=== PATIENT | male | born 1940 | race Caucasian/White ===

== ENCOUNTER → 2016-08-12 | Outpatient (CLI) | payer BC ==
[~2016-08-12] MED LIST: ASPI81TA28 PO; ATOR-26 PO; COEN75CA PO; HYDR25TA4 PO; LOSA1TAB PO; NEBI10TA2 PO
--- NOTE | 2016-08-12 12:28 | DIAGNOSTIC IMAGING REPORT ---
RENAL ULTRASOUND HISTORY: LEFT FLANK PAIN COMPARISON: None. FINDINGS: Right kidney: 13.0 cm. No hydronephrosis. Normal corticomedullary differentiation and cortical thickness. Left kidney: 13.0 cm. No hydronephrosis. Normal corticomedullary differentiation and cortical thickness. There are 2 cysts measuring 6.7 and 2.9 cm. Bladder: No bladder wall thickening. The bilateral ureteral jets were identified. The prostate is enlarged. IMPRESSION: 1. No hydronephrosis. 2. Left renal cysts. 3. Enlarged prostate. Electronically signed by: Rajeev Weathers M.D. 08/12/2016 12:27 PM Dictated Date/Time: 08/12/2016 12:25 PM
== END | disposition home or self-care (01) ==
LOC: C.ULTR 11:47
PROVIDERS: ATTEND Family Medicine
DX: R10.9 Unspecified abdominal pain (principal); N28.1 Cyst of kidney, acquired; N40.0 Benign prostatic hyperplasia without lower urinary tract symptoms

== ENCOUNTER → 2016-08-23 | Outpatient (CLI) | payer BC ==
--- NOTE | 2016-08-23 13:57 | DIAGNOSTIC IMAGING REPORT ---
ABDOMEN AND PELVIS CT WITHOUT CONTRAST CT DOSE: 1035.98 mGycm HISTORY: Left flank pain. TECHNIQUE: Multiaxial CT images of the abdomen and pelvis were performed without contrast. COMPARISON STUDY: Renal ultrasound 08/12/2016. FINDINGS: Bibasal linear densities consistent with subsegmental atelectasis. Moderate to severe right hip osteoarthritis. A 1 cm hypodense lesion within the left hepatic lobe at the periphery. This is incompletely characterize on this noncontrast study but could represent focal fat. The unenhanced spleen, adrenal glands, and pancreas are unremarkable. The gallbladder is contracted. No renal stones. No hydronephrosis. There are 2 hypodense lesions within the left kidney with the largest measuring 5.6 cm. These likely represent cysts. No retroperitoneal lymphadenopathy. Suboptimal evaluation for bowel pathology due to the lack of intravenous and oral contrast. However, there is no definite bowel wall thickening or obstruction. Small calcifications at the posterior wall of the bladder. These could represent calcifications within the wall of the bladder versus tiny bladder stones. There is a 14 x 7 x 5 cm intramuscular fat-containing lesion within the left iliopsoas muscle. This contains a few punctate calcifications. 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 No associated bony destruction. IMPRESSION: 1. No renal stones or hydronephrosis. 2. Punctate densities within posterior bladder consistent with calcification. These could be within the bladder wall or represent tiny bladder stones. 3. A 14 x 7 x 5 cm intramuscular fat-containing lesion within the left iliopsoas muscle. This favors a lipoma. Electronically signed by: Rajeev Weathers M.D. 08/23/2016 1:56 PM Dictated Date/Time: 08/23/2016 1:48 PM
== END | disposition home or self-care (01) ==
LOC: C.CTS 13:30
PROVIDERS: ATTEND Family Medicine
DX: R10.9 Unspecified abdominal pain (principal); N32.9 Bladder disorder, unspecified; M62.89 Other specified disorders of muscle

== ENCOUNTER → 2016-12-13 | Outpatient (CLI) | payer BC | END | disposition home or self-care (01) | LOC: C.LAB1850 12:11 | PROVIDERS: ATTEND Urology | DX: N40.1 Benign prostatic hyperplasia with lower urinary tract symptoms (principal) ==

== ENCOUNTER → 2017-06-09 | Outpatient (CLI) | payer BC | END | disposition home or self-care (01) | LOC: C.LABSPEC 14:52 | PROVIDERS: ATTEND Urology | DX: N40.1 Benign prostatic hyperplasia with lower urinary tract symptoms (principal); F52.8 Other sexual dysfunction not due to a substance or known physiological condition; R35.1 Nocturia ==

== ENCOUNTER 2018-10-17 16:25 | Observation (INO) ==
[2018-10-17] MEDS ORDERED: SODIUM CHLORIDE 0.9% 500 ML IV ONE (16:58)
[2018-10-17 17:02] LABS: Basophils # (auto) 0.02 K/uL (0-0.2); Basophils % (auto) 0.2 %; Eosinophils # (auto) 0.13 K/uL (0-0.5); Eosinophils % (auto) 1.2 %; Hematocrit (blood only) 44.8 % (42-52); Hemoglobin 15.4 g/dL (14.0-18.0); Immature Granulocytes # (auto) 0.02 K/uL (0.00-0.02); Immature Granulocytes % (auto) 0.2 %; Lymphocytes # (auto) 2.58 K/uL (1.2-3.4); Lymphocytes % (auto) 23.4 %; Mean Corpuscular Hgb Conc 34.4 g/dL (32-36); Mean Corpuscular Volume 90.9 fL (80-100); Monocytes # (auto) 1.04 K/uL (0.11-0.59); Monocytes % (auto) 9.4 %; Neutrophils # (auto) 7.22 K/uL (1.4-6.5); Neutrophils % (auto) 65.6 %; Platelet Count 223 K/uL (130-400); RDW Coefficient of Variation 13.9 % (11.5-14.5); RDW Standard Deviation 45.9 fL (36.4-46.3); Red Blood Count 4.93 M/uL (4.7-6.1); White Blood Count 11.01 K/uL (4.8-10.8)
[2018-10-17 17:16] LABS: Prothrombin Time 10.7 Seconds (9.0-12.0)
--- NOTE | 2018-10-17 17:22 | Emergency Department Note ---
Entered by Evy Willis acting as a scribe for History of Present Illness General Chief complaint: Chest Pain Stated complaint: CHEST PAIN, DIZZY, LIGHT HEADED, SOB- CARDIAC HX Time Seen by Provider: 10/17/18 16:38 Source: patient and family () History of Present Illness Onset (ago): hour(s) (19) Location: chest Pain Consistency: + intermittent Maximum Pain Intensity: 1 Quality: + other (slight) Associated symptoms: + other (+dizziness; +lightheadedness; +feels close to passing out; +slight palpitations; +erratic heart rate; -indigestion; - diarrhea); no cough and no nausea/vomiting The patient is a 77 year old male who presents to the Emergency Room with complaints of intermittent, slight chest pain that began last night at approximately 2200. The patient reports that each episode of chest pain is accompanied with dizziness, lightheadedness, and the patient reports he felt he was about to pass out. The patient also reports of feeling slight palpitations and and an irregular rhythmic, fast heart rate. The patient states that he has felt episodes of lightheadedness for the past month. The patient notes each episode lasts for about an hour. The patient denies a cough, indigestion, diarrhea, or nausea and vomiting. The patient notes he has been eating and drinking good. The patient states he saw his PCP-Dr. Ridley regarding symptoms, and the patient states his PCP was concerned for A Fib. The patient also reports he exercises on a stationary bike and does resistant training 4 days a week. The of the patient feels the patient gets dehydrated. The patient notes he feels good right now. He also notes that he does not know what brings each episode on. The patient reports that he had a stent placed in June 2009, and that he used to be on Plavix for it but is currently not taking it. The patient also notes he used to be on blood pressure medication, but he notes he ceased taking it 3-4 weeks due to his blood pressure lowering. Home Medications Home Medications Medication Instructions Recorded Confirmed Type atorvastatin 80 mg PO QAM #0 tab 12/31/15 10/17/18 History hydrochlorothiazide 25 mg PO QAM #0 tab 12/31/15 10/17/18 History finasteride 5 mg PO QAM 11/01/17 10/17/18 History tamsulosin 0.4 mg PO QAM 11/01/17 10/17/18 History aspirin [Ecotrin Low Strength] 81 mg PO QAM 10/17/18 10/17/18 History coenzyme Q10 100 mg PO QAM 10/17/18 10/17/18 History losartan 100 mg PO QAM 10/17/18 10/17/18 History Allergies Allergy/AdvReac Type Severity Reaction Status Date / Time No Known Allergies Allergy Verified 10/17/18 17:20 Past Med/Surg History Medical History Hypertension Benign prostatic hyperplasia Hyperlipidemia Atrial fibrillation, new onset (Acute) Elevated troponin (Acute) BPH (benign prostatic hyperplasia) Bradycardia ASYMPTOMATIC ON BETA SABINE CAD (coronary artery disease) 2009 s/p MAREK to dRCA HLD (hyperlipidemia) HTN (hypertension) Hx of myocardial infarction 2009 s/p MAREK to dRCA Osteoarthritis Sleep apnea CPAP (PATIENT HAS NOT RECEIVED CPAP DEVICE YET) Surgical History Hx of cardiac cath 06/20/2009- [place] WITH MAREK STENT TO RCA Hx of cataract surgery RIGHT AND LEFT Hx of local excision of skin lesion Right upper arm Dr. James 10-16-18 Family History Other No significant family history Social History Preferred Language: Nepali Communication Ability: Effective Visual Impairment: No Limitations [employer] Experience Strategy Required: No Beliefs That Will Affect Care: None Current Living Situation: Spouse Feels Safe at Home: Yes Safety Concerns: Feels Safe At This Time Smoking Status: Former smoker Cigarettes Per Day: INTERMITTENT ; Do You Dip or Chew Tobacco: No ; Smoking End Date: quit at [age] y/o ; Second Hand Exposure: No ; Hx Alcohol Use: Yes Alcohol type: wine Hx Substance Use: No Review of Systems See HPI for pertinent positives & negatives. and A total of 10 systems reviewed and were otherwise negative Physical Exam Vital Signs Vital Signs - 24 hr 10/17/18 16:30 10/17/18 16:56 10/17/18 17:00 Temperature 36.8 C Temperature Source Oral Sepsis Recent Fever Within 48 Hours No Sepsis New/Unexplained Change in Mental Status No Sepsis Action Taken by Nursing No Action Required Pulse Rate 93 H 116 H 101 H Pulse Rate [Finger] Pulse Rate from SpO2 Sensor Respiratory Rate 22 30 H 14 Blood Pressure 109/75 Blood Pressure [Right Arm] Blood Pressure Mean 86 Blood Pressure Mean [Right Arm] Pulse Oximetry 97 Oxygen Delivery Method Room Air Room Air Room Air 10/17/18 17:03 10/17/18 17:10 10/17/18 17:20 Temperature Temperature Source Sepsis Recent Fever Within 48 Hours Sepsis New/Unexplained Change in Mental Status Sepsis Action Taken by Nursing Pulse Rate 104 H 119 H 99 H Pulse Rate [Finger] Pulse Rate from SpO2 Sensor 80 Respiratory Rate 30 H 33 H 18 Blood Pressure 129/93 Blood Pressure [Right Arm] Blood Pressure Mean 105 Blood Pressure Mean [Right Arm] Pulse Oximetry 95 Oxygen Delivery Method Room Air Room Air Room Air 10/17/18 17:30 10/17/18 17:40 10/17/18 17:50 Temperature Temperature Source Sepsis Recent Fever Within 48 Hours Sepsis New/Unexplained Change in Mental Status Sepsis Action Taken by Nursing Pulse Rate 93 H 99 H 90 Pulse Rate [Finger] Pulse Rate from SpO2 Sensor Respiratory Rate 18 17 18 Blood Pressure 124/97 Blood Pressure [Right Arm] Blood Pressure Mean 106 Blood Pressure Mean [Right Arm] Pulse Oximetry Oxygen Delivery Method Room Air Room Air Room Air 10/17/18 18:00 10/17/18 18:10 10/17/18 18:20 Temperature Temperature Source Sepsis Recent Fever Within 48 Hours Sepsis New/Unexplained Change in Mental Status Sepsis Action Taken by Nursing Pulse Rate 133 H 98 H 93 H Pulse Rate [Finger] Pulse Rate from SpO2 Sensor Respiratory Rate 23 19 10 L Blood Pressure 117/68 Blood Pressure [Right Arm] Blood Pressure Mean 84 Blood Pressure Mean [Right Arm] Pulse Oximetry Oxygen Delivery Method Room Air Room Air Room Air 10/17/18 19:11 10/17/18 19:20 10/17/18 19:30 Temperature Temperature Source Sepsis Recent Fever Within 48 Hours Sepsis New/Unexplained Change in Mental Status Sepsis Action Taken by Nursing Pulse Rate 100 H 97 H 103 H Pulse Rate [Finger] Pulse Rate from SpO2 Sensor Respiratory Rate 23 22 18 Blood Pressure Blood Pressure [Right Arm] Blood Pressure Mean Blood Pressure Mean [Right Arm] Pulse Oximetry Oxygen Delivery Method Room Air Room Air Room Air 10/17/18 19:39 10/17/18 19:40 10/17/18 19:50 Temperature Temperature Source Sepsis Recent Fever Within 48 Hours Sepsis New/Unexplained Change in Mental Status Sepsis Action Taken by Nursing Pulse Rate 94 H 101 H Pulse Rate [Finger] Pulse Rate from SpO2 Sensor 84 Respiratory Rate 19 19 Blood Pressure Blood Pressure [Right Arm] Blood Pressure Mean Blood Pressure Mean [Right Arm] Pulse Oximetry 95 Oxygen Delivery Method Room Air Room Air Room Air 10/17/18 19:54 10/17/18 19:55 10/17/18 20:00 Temperature Temperature Source Sepsis Recent Fever Within 48 Hours Sepsis New/Unexplained Change in Mental Status Sepsis Action Taken by Nursing Pulse Rate 96 H 103 H Pulse Rate [Finger] 105 H Pulse Rate from SpO2 Sensor 71 72 Respiratory Rate 23 24 16 Blood Pressure 125/89 127/74 Blood Pressure [Right Arm] 125/89 Blood Pressure Mean 101 91 Blood Pressure Mean [Right Arm] 101 Pulse Oximetry 94 96 96 Oxygen Delivery Method Room Air Room Air Room Air 10/17/18 20:10 10/17/18 20:20 10/17/18 20:30 Temperature Temperature Source Sepsis Recent Fever Within 48 Hours Sepsis New/Unexplained Change in Mental Status Sepsis Action Taken by Nursing Pulse Rate 112 H 85 105 H Pulse Rate [Finger] Pulse Rate from SpO2 Sensor 95 H 74 74 Respiratory Rate 14 17 25 H Blood Pressure 128/84 Blood Pressure [Right Arm] Blood Pressure Mean 98 Blood Pressure Mean [Right Arm] Pulse Oximetry 97 97 94 Oxygen Delivery Method Room Air Room Air Room Air GENERAL: Awake, fatigued-appearing, in no distress HENT: Normocephalic, atraumatic. Oropharynx with dry mucous membranes and otherwise unremarkable. EYES: Normal conjunctiva. Sclera non-icteric. EOMI. No nystamgus. PEARRL. NECK: Supple. No nuchal rigidity. FROM. No JVD. RESPIRATORY: CTAB. CARDIAC: Tachycardic rate, irregular rhythm. Extremities warm and well perfused. Pulses equal. ABDOMEN: Soft, non-distended. No tenderness to palpation. No rebound or guarding. No masses. RECTAL: Deferred. MUSCULOSKELETAL: Chest examination reveals no tenderness. The back is symmetrical on inspection without obvious abnormality. There is no CVA tenderness to palpation. No joint edema. LOWER EXTREMITIES: Calves are equal size bilaterally and non-tender. No edema. No discoloration. NEURO: Normal sensorium. No sensory or motor deficits noted. SKIN: No rash or jaundice noted. Course 1645: Past medical records reviewed. The patient was evaluated in room C5. A c omplete history and physical exam was performed. 1823: I reevaluated and discussed the patient's case with the patient. 1834: I discussed the case with Dr. Oh-Hospitalist [facility]. Dr. Oh will further evaluate the patient. Administered Medications Heparin Sodium/Dextrose (Heparin Sodium/Dextrose) 25,000 units in 500 mls @ 29 mls/hr IV .[id number] AIME; Protocol Stop: 11/16/18 18:59 Last Admin: 10/18/18 02:10 Dose: 1,450 units/hr, 29 mls/hr Documented by: [id number] Cosigned by: [id number] Admin: 10/17/18 19:52 Dose: Not Given Documented by: [id number] Metoprolol Tartrate (Lopressor) 12.5 mg PO BID [facility] Stop: 11/16/18 22:16 Last Admin: 10/17/18 23:40 Dose: 12.5 mg Documented by: [id number] Discontinued Medications Heparin Sodium/Dextrose () 1 ea IV ONE ONE; Protocol Stop: 10/17/18 18:56 Last Admin: 10/17/18 19:52 Dose: 25,000 ea Documented by: [id number] Sodium Chloride (Nss) 500 mls @ 999 mls/hr IV .Q31M ONE Stop: 10/17/18 17:28 Last Infusion: 10/17/18 17:41 Dose: 0 mls/hr Documented by: [id number] Admin: 10/17/18 17:03 Dose: 999 mls/hr Documented by: [id number] Medical Decision Making Differential Diagnosis Differential diagnosis: Etiologies such as premature contractions, electrolyte abnormality, cardiac dysrhythmia, thyroid dysfunction, pulmonary embolism, infection, gastrointest inal, as well as others were entertained. Medical Records Attestation: I reviewed the patient's medical records. Home Medications Current Medication List: was personally reviewed by me Laboratory Data Attestation: I reviewed the patient's lab results. Result diagrams: 10/17/18 22:25 10/17/18 16:47 Lab Results 10/17/18 10/17/18 10/17/18 Range/Units 16:47 16:47 16:47 WBC 11.01 H (4.8-10.8) K/uL RBC 4.93 (4.7-6.1) M/uL Hgb 15.4 (14.0-18.0) g/dL Hct 44.8 (42-52) % MCV 90.9 (80-100) fL MCH 31.2 (25-34) pg MCHC 34.4 (32-36) g/dL RDW Std Deviation 45.9 (36.4-46.3) fL RDW Coeff of Negin 13.9 (11.5-14.5) % Plt Count 223 (130-400) K/uL MPV 10.0 (7.4-10.4) fL Immature Gran % (Auto) 0.2 % Neut % (Auto) 65.6 % Lymph % (Auto) 23.4 % Gooding % (Auto) 9.4 % Eos % (Auto) 1.2 % Baso % (Auto) 0.2 % Immature Gran # (Auto) 0.02 (0.00-0.02) K/uL Neut # (Auto) 7.22 H (1.4-6.5) K/uL Lymph # (Auto) 2.58 (1.2-3.4) K/uL Gooding # (Auto) 1.04 H (0.11-0.59) K/uL Eos # (Auto) 0.13 (0-0.5) K/uL Baso # (Auto) 0.02 (0-0.2) K/uL PT 10.7 (9.0-12.0) Seconds INR 1.0 (0.9-1.1) APTT (21.0-31.0) Seconds PTT Ratio Sodium 138 (136-145) mmol/L Potassium 3.7 (3.5-5.1) mmol/L Chloride 106 (98-107) mmol/L Carbon Dioxide 24 (21-32) mmol/L Anion Gap 8.0 (3-11) BUN 25 H (7-18) mg/dl Creatinine 1.18 (0.6-1.4) mg/dl Est Cr Clr Drug Dosing 60.0 ml/min Est GFR ( Amer) 69.1 Est GFR (Non-Af Amer) 59.6 BUN/Creatinine Ratio 20.9 H (10-20) Glucose 91 (70-99) mg/dl Calcium 8.6 (8.5-10.1) mg/dl Phosphorus (2.5-4.9) mg/dl Magnesium (1.8-2.4) mg/dl Total Bilirubin 0.9 (0.2-1) mg/dl AST 18 (15-37) U/L ALT 31 (12-78) U/L Alkaline Phosphatase 99 (45-117) U/L Troponin I 0.055 H* (0-0.045) ng/ml Total Protein 6.8 (6.4-8.2) gm/dl Albumin 3.3 L (3.4-5.0) gm/dl Globulin 3.5 (2.5-4.0) gm/dl Albumin/Globulin Ratio 0.9 (0.9-2) Lipase 108 (73-393) U/L 10/17/18 10/17/18 Range/Units 16:47 16:47 WBC (4.8-10.8) K/uL RBC (4.7-6.1) M/uL Hgb (14.0-18.0) g/dL Hct (42-52) % MCV (80-100) fL MCH (25-34) pg MCHC (32-36) g/dL RDW Std Deviation (36.4-46.3) fL RDW Coeff of Negin (11.5-14.5) % Plt Count (130-400) K/uL MPV (7.4-10.4) fL Immature Gran % (Auto) % Neut % (Auto) % Lymph % (Auto) % Gooding % (Auto) % Eos % (Auto) % Baso % (Auto) % Immature Gran # (Auto) (0.00-0.02) K/uL Neut # (Auto) (1.4-6.5) K/uL Lymph # (Auto) (1.2-3.4) K/uL Gooding # (Auto) (0.11-0.59) K/uL Eos # (Auto) (0-0.5) K/uL Baso # (Auto) (0-0.2) K/uL PT (9.0-12.0) Seconds INR (0.9-1.1) APTT 26.4 (21.0-31.0) Seconds PTT Ratio 1.0 Sodium (136-145) mmol/L Potassium (3.5-5.1) mmol/L Chloride (98-107) mmol/L Carbon Dioxide (21-32) mmol/L Anion Gap (3-11) BUN (7-18) mg/dl Creatinine (0.6-1.4) mg/dl Est Cr Clr Drug Dosing ml/min Est GFR ( Amer) Est GFR (Non-Af Amer) BUN/Creatinine Ratio (10-20) Glucose (70-99) mg/dl Calcium (8.5-10.1) mg/dl Phosphorus 2.9 (2.5-4.9) mg/dl Magnesium 1.9 (1.8-2.4) mg/dl Total Bilirubin (0.2-1) mg/dl AST (15-37) U/L ALT (12-78) U/L Alkaline Phosphatase (45-117) U/L Troponin I (0-0.045) ng/ml Total Protein (6.4-8.2) gm/dl Albumin (3.4-5.0) gm/dl Globulin (2.5-4.0) gm/dl Albumin/Globulin Ratio (0.9-2) Lipase (73-393) U/L Imaging Data Radiologist's Impression: Radiology results as stated below per my review and the radiologist's interpretation: XR chest 1V portable HISTORY: Atypical Chest Pain COMPARISON: Chest 06/20/2009. FINDINGS: No pneumothorax. No pleural effusions. The lungs are clear. The heart is normal in size. IMPRESSION: No acute process. Electronically signed by: Rajeev Weathers M.D. 10/17/2018 5:48 PM ECG Data Attestation: I personally reviewed and interpreted this ECG as follows: Indication: chest pain Rhythm: atrial fibrillation (with RVR of 105) Findings: + other (normal axis ); no acute ischemic change Blood Pressure Blood Pressure Findings: Normal blood pressure MDM Narrative The patient is a pleasant 77-year-old gentleman with a past medical history of CAD post PCI in 2009, hypertension, hyperlipidemia who presents emergency department with intermittent dyspnea, lightheadedness and palpitations found to have new onset A. fib at PCPs office per hpi. On arrival the patient is in no acute distress, afebrile stable vital signs. EKG demonstrates A. fib with no overt acute ischemia. Chest x-ray negative for acute process. WBC 11, nonspecific. H/H and platelets within normal limits. Chemistry without acidosis. Electrolytes and LFTs unremarkable. Troponin slightly elevated at 0.05 which certainly could be related to patient's A. fib with intermittent RVR. However, given the patient has reported some symptoms of exertional shortness of breath dizziness and chest pain reasonable to admit the patient for further cardiac evaluation. Heart score 6, moderate risk. Patient does have CHADSVASC of 3, so anticoagulation is indicated. Will initiate with heparin for now. Case was discussed with Dr. Oh, [facility] hospitalist, who will evaluate the patient for admission. Impression & Plan Atrial fibrillation, new onset, Elevated troponin Critical Care Time Critical Care Time: Yes Total Critical Care Time: 35 I have personally spent greater than 35 minutes of critical care time in the direct management of this patient. This includes bedside care, interpretation of diagnostic studies, and testing, discussion with consultants, patient, and family members, and other required patient management activities. This 35 minutes is in excess of all separately billable procedures. Discharge Plan Visit Data *Final* Discharge Date/Time: 10/17/18 21:46 Chief Complaint: Chest Pain Stated Complaint: CHEST PAIN, DIZZY, LIGHT HEADED, SOB- CARDIAC HX ED Provider: Valerio Kearns Discharge Problem: Atrial fibrillation, new onset, Elevated troponin Patient Disposition: Admitted As Inpatient Discharge Instructions Interventions: ED Discharge Assessment Last Done: 10/17/18 21:46 The scribe's documentation has been prepared under my direction and personally reviewed by me in its entirety. I confirm that the note above accurately reflects all work, treatment, procedures, and medical decision making performed by me.
[2018-10-17 17:24] LABS: Magnesium 1.9 mg/dl (1.8-2.4); Phosphorus 2.9 mg/dl (2.5-4.9)
[2018-10-17 17:27] LABS: Albumin Level 3.3 gm/dl (3.4-5.0); BUN Creatinine Ratio 20.9 (10-20); Calcium 8.6 mg/dl (8.5-10.1); Est GFR (African American) 69.1; Est GFR (Non-African American) 59.6; Potassium 3.7 mmol/L (3.5-5.1)
[2018-10-17 17:40] LABS: Albumin Globulin Ratio 0.9 (0.9-2); Bilirubin,Total 0.9 mg/dl (0.2-1); Globulin 3.5 gm/dl (2.5-4.0); Total Protein 6.8 gm/dl (6.4-8.2); Troponin I 0.055 ng/ml (0-0.045)
--- NOTE | 2018-10-17 17:49 | XRay Report ---
XR chest 1V portable HISTORY: Atypical Chest Pain COMPARISON: Chest 06/20/2009. FINDINGS: No pneumothorax. No pleural effusions. The lungs are clear. The heart is normal in size. IMPRESSION: No acute process. Electronically signed by: Rajeev Weathers M.D. 10/17/2018 5:48 PM
[2018-10-17] MEDS ORDERED: Heparin IV Standard *NO* Bolus IV ONE (18:55)
[2018-10-17 19:19] LABS: Partial Thromboplastin Time 26.4 Seconds (21.0-31.0)
[2018-10-17] MEDS: HEPARIN SODIUM/DEXTROSE 25,000 UNITS/500 ML BAG IV SCH (19:52)
--- NOTE | 2018-10-17 20:18 | History & Physical Report ---
Date of Service October 17, 2018 Assessment & Plan (1) Atrial fibrillation, new onset: Atrial fibs with RVR. - Admit to medicine on telemetry. - Vital signs every 4 hours. - Strict in and out. - BNP pending. - Started on heparin drip for A. fib's since patient is at risk of CVA. - Echocardiogram in in a.m. - Started metoprolol tartrate low-dose 12.5 mg twice daily and needs to be titrate up carefully due to low blood pressure. - Hold metoprolol if blood pressure is in the lower side. - Hold losartan and hydrochlorothiazide if blood pressure less than 120/80. - Please consider consulting cardiology for A. fib's and after echocardiogram results. - Continue aspirin 81 mg daily p.o. - Heart healthy diet. - Full code -DVT prophylaxis-patient started on heparin drip for A. fib's. Present on Admission?: Yes (2) Elevated troponin: First troponin is elevated to 0.055. Most likely due to paroxysmal A. fib's and higher heart rate. -No ST segment elevation or depression on the EKG. -Trend troponins x3 followed by EKG. -Started heparin drip. -Consult cardiology in a.m. of after echocardiogram is resulted. -Given aspirin already. -Patient reports no chest pain. Present on Admission?: Yes (3) Hypertension: Patient blood pressure lately tends to be below 120/80. Hold losartan and hydrochlorothiazide if blood pressure below 120/80. Continue aspirin 81 mg p.o. daily. Present on Admission?: Yes (4) Hyperlipidemia: Fasting lipid panel in a.m. Continue atorvastatin 80 mg p.o. every morning. Present on Admission?: Yes (5) Benign prostatic hyperplasia: Stable, continue home dose of tamsulosin 0.5 mg p.o. every morning and finasteride 5 mg p.o. every morning. Present on Admission?: Yes History of Present Illness Chief Complaint: Lightheadedness and chest pain Primary Care Provider: Marah Helm MD Patient is a 77 years old male with past medical history of right hip replacement approximately a year ago, coronary artery disease status post stent to RCA placement by Dr. John in 2009, hypertension, benign prostatic hypertrophy, hyperlipidemia, sleep apnea, osteoarthritis, presents to the emergency room complaining of feeling lightheaded, dizzy feeling that he is going to pass out and having a slight chest pain. Patient states that it started last night about 10 PM and that he had 3 glasses of wine which is his usual and that he all of a sudden started to feel dizzy lightheaded and he checked his pulse on pulse oximetry which noted that it was above 100. Patient states that the more occasions happened in the past months and that each episode lasted approximately 1 hour. Patient denies fever chills chest pain shortness of breath headache abdominal pain hemoptysis hematuria dysuria diarrhea nausea or vomiting patient does not have any complain about eating or drinking habits. Patient saw this morning Dr. Ridley his PCP regarding his lightheadedness and dizziness and he recommended him to go to the emergency room. Patient said that he was before on Plavix for the stent that was placed in his heart but then lately he was taken off of it because he has been more than 5 years on Plavix. Patient reports that he did not take regularly his blood pressure medicine lately because his blood pressure was at the lower side. Chemistry is reviewed: Sodium 139,potassium 3.7, chloride 106 BUN of 25, creatinine 1.18, GFR of 60, troponin elevated of 0.055. EKG shows atrial fibrillation with RVR compared to sinus bradycardia on November 01, 2017. Rate of A. fib's are 105 bpm and ventricular rate of 59 bpm QT interval 352. Chest x-ray show no acute process. The case was discussed with patient and decision was made to admit him to medicine on telemetry and on observation. Allergies Allergy/AdvReac Type Severity Reaction Status Date / Time No Known Allergies Allergy Verified 10/17/18 17:20 Home Medications Home Medications Medication Instructions Recorded Confirmed Type atorvastatin 80 mg PO QAM #0 tab 12/31/15 10/17/18 History hydrochlorothiazide 25 mg PO QAM #0 tab 12/31/15 10/17/18 History finasteride 5 mg PO QAM 11/01/17 10/17/18 History tamsulosin 0.4 mg PO QAM 11/01/17 10/17/18 History aspirin [Ecotrin Low Strength] 81 mg PO QAM 10/17/18 10/17/18 History coenzyme Q10 100 mg PO QAM 10/17/18 10/17/18 History losartan 100 mg PO QAM 10/17/18 10/17/18 History Past Med/Surg History Medical History BPH (benign prostatic hyperplasia) Bradycardia ASYMPTOMATIC ON BETA SABINE CAD (coronary artery disease) 2009 s/p MAREK to dRCA HLD (hyperlipidemia) HTN (hypertension) Hx of myocardial infarction 2009 s/p MAREK to dRCA Osteoarthritis Sleep apnea CPAP (PATIENT HAS NOT RECEIVED CPAP DEVICE YET) Surgical History Hx of cardiac cath 06/20/2009- [place] WITH MAREK STENT TO RCA Hx of cataract surgery RIGHT AND LEFT Hx of local excision of skin lesion Right upper arm Dr. 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 Required: No Beliefs That Will Affect Care: None Current Living Situation: Spouse Feels Safe at Home: Yes Safety Concerns: Feels Safe At This Time Smoking Status: Former smoker Cigarettes Per Day: INTERMITTENT ; Do You Dip or Chew Tobacco: No ; Smoking End Date: quit at [age] y/o ; Second Hand Exposure: No ; Hx Alcohol Use: Yes Alcohol type: wine Hx Substance Use: No Review of Systems Review of Systems: All systems reviewed & are unremarkable except as noted in HPI & below Cardiovascular: + palpitations and + lightheadedness Physical Exam Constitutional: WD/WN, vitals as above well developed and + obese Eyes: PERRL, conjunctivae normal, anicteric sclerae ENMT: external ear and nose normal, oropharynx normal Neck: trachea midline, no thyromegaly Respiratory: normal respiratory effort, lungs clear to auscultation Cardiovascular: RRR, no murmur, no edema Chest (Breasts): normal inspection/palpation of breasts Gastrointestinal (Abdomen): normal bowel sounds, soft, nontender, no hepatosplenomegaly Musculoskeletal: no cyanosis or clubbing, extremities motor strength 5/5 Skin: no rashes, warm and dry Neurologic: patellar DTR's 2+ bilat, sensation intact Psychiatric: A+Ox3, euthymic affect Genitourinary: no testicular masses, no penis abnormality Lymphatic: no cervical or axillary lymphadenopathy Results & Data Vital Signs (Past 12 Hours) Vital Signs Temp Pulse Pulse Resp BP BP Pulse Ox 10/17/18 19:54 105 H 23 125/89 94 10/17/18 18:20 93 H 10 L 10/17/18 18:10 98 H 19 10/17/18 18:00 133 H 23 117/68 10/17/18 17:50 90 18 10/17/18 17:40 99 H 17 10/17/18 17:30 93 H 18 124/97 10/17/18 17:20 99 H 18 10/17/18 17:10 119 H 33 H 10/17/18 17:03 104 H 30 H 129/93 95 10/17/18 17:00 101 H 14 10/17/18 16:56 116 H 30 H 10/17/18 16:30 36.8 C 93 H 22 109/75 97 Code Status & VTE Plan Code Status Full code VTE Prophylaxis Plan VTE Prophylaxis will be ordered: Yes PG Care Time/CCT Total # of Minutes Spent Total Time Spent with Patient: Total time spent is greater than 50% in coordination of care (as documented) at patient's floor/unit and/or counseling patient:
[2018-10-17] MEDS ORDERED: ONDANSETRON INJ 2 MG/ML 2 ML VIAL IV PRN (22:17)
[2018-10-17] MEDS ORDERED: POLYETHYLENE (MIRALAX) 17 GM PACK PO PRN (22:17)
[2018-10-17] MEDS ORDERED: MAGNESIUM HYDROXIDE SUSP 30 ML UDC PO PRN (22:17)
[2018-10-17] MEDS ORDERED: ACETAMINOPHEN 325 MG TAB PO PRN (22:17)
[2018-10-17] MEDS ORDERED: ALUMINUM/MAGNESIUM SUSP 30 ML UDC PO PRN (22:17)
[2018-10-17] MEDS ORDERED: ZOLPIDEM TARTRATE 5 MG TAB PO PRN (22:17)
[2018-10-17 22:35] LABS: Basophils # (auto) 0.03 K/uL (0-0.2); Basophils % (auto) 0.2 %; Eosinophils % (auto) 1.5 %; Hematocrit (blood only) 47.7 % (42-52); Hemoglobin 16.5 g/dL (14.0-18.0); Immature Granulocytes # (auto) 0.04 K/uL (0.00-0.02); Immature Granulocytes % (auto) 0.3 %; Lymphocytes # (auto) 3.26 K/uL (1.2-3.4); Mean Corpuscular Hgb Conc 34.6 g/dL (32-36); Mean Corpuscular Volume 93.5 fL (80-100); Mean Platelet Volume 10.2 fL (7.4-10.4); Monocytes # (auto) 1.32 K/uL (0.11-0.59); Monocytes % (auto) 9.7 %; Neutrophils # (auto) 8.72 K/uL (1.4-6.5); Neutrophils % (auto) 64.3 %; Platelet Count 220 K/uL (130-400); RDW Coefficient of Variation 13.8 % (11.5-14.5); RDW Standard Deviation 47.3 fL (36.4-46.3); White Blood Count 13.57 K/uL (4.8-10.8)
[2018-10-17] MEDS: METOPROLOL TARTRATE 25 MG TAB PO SCH (23:40)
[2018-10-18] MEDS: HEPARIN SODIUM/DEXTROSE 25,000 UNITS/500 ML BAG IV SCH ×2 (02:10→13:31)
[2018-10-18 02:31] LABS: Partial Thromboplastin Ratio 2.2
[2018-10-18 02:49] LABS: Partial Thromboplastin Time 58.6 Seconds (21.0-31.0)
[2018-10-18 04:12] LABS: Basophils # (auto) 0.03 K/uL (0-0.2); Basophils % (auto) 0.3 %; Eosinophils # (auto) 0.14 K/uL (0-0.5); Eosinophils % (auto) 1.4 %; Hematocrit (blood only) 43.6 % (42-52); Immature Granulocytes # (auto) 0.03 K/uL (0.00-0.02); Immature Granulocytes % (auto) 0.3 %; Lymphocytes # (auto) 2.67 K/uL (1.2-3.4); Lymphocytes % (auto) 26.7 %; Mean Corpuscular Hgb Conc 34.4 g/dL (32-36); Mean Corpuscular Volume 91.2 fL (80-100); Mean Platelet Volume 10.3 fL (7.4-10.4); Monocytes # (auto) 0.94 K/uL (0.11-0.59); Monocytes % (auto) 9.4 %; Neutrophils # (auto) 6.19 K/uL (1.4-6.5); Neutrophils % (auto) 61.9 %; Platelet Count 207 K/uL (130-400); RDW Coefficient of Variation 13.8 % (11.5-14.5); RDW Standard Deviation 46.5 fL (36.4-46.3); Red Blood Count 4.78 M/uL (4.7-6.1)
[2018-10-18 04:33] LABS: Partial Thromboplastin Ratio 2.4
[2018-10-18 04:38] LABS: Partial Thromboplastin Time 66.1 Seconds (21.0-31.0)
[2018-10-18 04:44] LABS: Albumin Globulin Ratio 0.9 (0.9-2); BUN Creatinine Ratio 18.6 (10-20); Bilirubin,Total 0.7 mg/dl (0.2-1); Calcium 8.2 mg/dl (8.5-10.1); Creatinine Clr Calc Pharmacy 62.2 ml/min; Est GFR (African American) 72.8; Est GFR (Non-African American) 62.8; Globulin 3.2 gm/dl (2.5-4.0); Potassium 4.3 mmol/L (3.5-5.1); Total Protein 6.2 gm/dl (6.4-8.2); Troponin I 0.061 ng/ml (0-0.045)
[2018-10-18] MEDS: TAMSULOSIN HCL 0.4 MG CAP PO SCH (08:31)
[2018-10-18] MEDS: FINASTERIDE 5 MG TAB PO SCH (08:32)
[2018-10-18] MEDS: ASPIRIN 81 MG ECTAB PO SCH (08:33)
[2018-10-18] MEDS: ATORVASTATIN 40 MG TAB PO SCH (08:33)
[2018-10-18] MEDS ORDERED: LOSARTAN POTASSIUM 50 MG TAB PO SCH (09:00)
[2018-10-18] MEDS ORDERED: NON-FORMULARY MEDICATION (Coenzyme Q10 100 MG) PO SCH (09:00)
[2018-10-18] MEDS ORDERED: hydroCHLOROthiazide 25 MG TAB PO SCH (09:00)
[2018-10-18] MEDS: METOPROLOL TARTRATE 25 MG TAB PO SCH ×2 (10:56→19:59)
--- NOTE | 2018-10-18 12:04 | Cardiology Consultation ---
Date of Consultation October 18, 2018 Assessment & Plan (1) Atrial fibrillation, new onset: The onset of his atrial fibrillation is unclear. Perhaps this started 2 days ago but certainly could been longer. He did have an outpatient visit recently at which point his rhythm was normal. There is also unclear association with his symptoms in the arrhythmia. White did describe symptoms of dizziness and lightheadedness possibly associated with atrial fibrillation, he is currently in atrial fibrillation without symptoms. He will require more aggressive rate control. His medications were held this morning due to some concern over hypotension. I think we can discontinue his hydrochlorothiazide and reduce his losartan and attempt to allow administration of beta-blockade. He also derive benefit from the beta-jana in the setting of his prior myocardial infarction. He may have element of with slow heart rates at baseline. We will need to monitor his response to metoprolol. It is possible that he will convert to sinus rhythm on his own will need to monitor his rate and symptoms at that time as well. It is possible that he has tachy- sylvia syndrome and will require pacing. The symptoms of dizziness could be related to conversion pauses. However, at this point we have no documentation of such. We did discuss anticoagulation. His chads Vasc score is elevated and I did recommend systemic anticoagulation. I think Xarelto will be a convenient option for him. I think we will stop his heparin later today and administer dose of Xarelto. He has remote history of coronary disease, but likely will only require Xarelto and not aspirin for prophylaxis. (2) Elevated troponin: Very minimal elevation if any elevation at all in his biomarkers. He is known to have some element of coronary disease but I do not believe this is resources representative of an acute coronary syndrome. I think we will continue him on his standard secondary prevention to include atorvastatin, anticoagulation and reinstitution of beta-blockade. 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 Echocardiogram suggest preserved LV systolic function without regional wall motion abnormality. Stress echocardiogram performed 1 year ago has similar features. I think he will benefit from being on a beta-jana. I think we can reduce his dose of ARB. No current symptoms suggestive of angina. History of Present Illness Reason for Consultation: Atrial fibrillation Requesting Physician: Tino Attending Physician: Ga Jiménez MD History of Present Illness Patient is a 77-year-old gentleman with a history of coronary disease having suffered an inferoposterior myocardial infarction in 2009. The patient has no history of arrhythmia. Recently, he has been experiencing symptoms of lightheadedness and dizziness. These appear to be fairly random in nature. He has had several over the past few weeks. These did not result in syncope. Often with an episode he will simply rest or discontinue his activity with rapid resolution of his symptoms. He is not aware of any palpitations during these episodes. These episodes do not appear to be associated with changes in activity. Approximately 2 days ago the patient did notice some irregularity in his pulse. He also noted some higher heart rates. He had an appointment with his primary care physician for evaluation and was directed to the emergency room at [facility]. He was experiencing some symptoms of dizziness at the time of admission but these appear to have resolved currently. He did not endorse symptoms of chest discomfort or limiting dyspnea. He cannot recall symptoms of palpitations prior to 2 days ago. In general, he is a very active individual was accustomed to regular exercise. He does notice that with exercise his heart rate rarely reaches 100 beats per minute. However, he does not have any exertional chest pain or limiting dyspnea. He has affected a significant weight loss recently and has also noticed some improvement in his blood pressures. This prompted discontinuation of his beta-jana several weeks ago. Currently, he is feeling well. He denies symptoms of palpitations. He is not feeling dizzy. He has no symptoms of chest pain or shortness of breath. Allergies Allergy/AdvReac Type Severity Reaction Status Date / Time No Known Allergies Allergy Verified 10/17/18 17:20 Home Medications Home Medications Medication Instructions Recorded Confirmed Type atorvastatin 80 mg PO QAM #0 tab 12/31/15 10/17/18 History hydrochlorothiazide 25 mg PO QAM #0 tab 12/31/15 10/17/18 History finasteride 5 mg PO QAM 11/01/17 10/17/18 History tamsulosin 0.4 mg PO QAM 11/01/17 10/17/18 History aspirin [Ecotrin Low Strength] 81 mg PO QAM 10/17/18 10/17/18 History coenzyme Q10 100 mg PO QAM 10/17/18 10/17/18 History losartan 100 mg PO QAM 10/17/18 10/17/18 History Patient History Medical History Hypertension Benign prostatic hyperplasia Hyperlipidemia Atrial fibrillation, new onset (Acute) Elevated troponin (Acute) BPH (benign prostatic hyperplasia) Bradycardia ASYMPTOMATIC ON BETA JANA CAD (coronary artery disease) 2009 s/p MAREK to dRCA HLD (hyperlipidemia) HTN (hypertension) Hx of myocardial infarction 2010 s/p MAREK to dRCA Osteoarthritis Sleep apnea CPAP (PATIENT HAS NOT RECEIVED CPAP DEVICE YET) Surgical History Hx of cardiac cath 06/20/2009- [place] WITH MAREK STENT TO RCA Hx of cataract surgery RIGHT AND LEFT Hx of local excision of skin lesion Right upper arm Dr. James 10-16-18 Family History Other No significant family history Social History Preferred Language: Latvian Communication Ability: Effective Visual Impairment: No Limitations Supervisor Smoke Control Required: No Beliefs That Will Affect Care: None Current Living Situation: Spouse Feels Safe at Home: Yes Safety Concerns: Feels Safe At This Time Smoking Status: Former smoker Cigarettes Per Day: INTERMITTENT ; Do You Dip or Chew Tobacco: No ; Smoking End Date: quit at [age] y/o ; Second Hand Exposure: No ; Hx Alcohol Use: Yes Alcohol type: wine Hx Substance Use: No Review of Systems Review of Systems: All systems reviewed & are unremarkable except as noted in HPI & below No recent lower extremity edema. Patient did attend a republican recently where he drank more alcohol than usual. He has been compliant with the CPAP therapy at nighttime. Physical Exam Physical Exam: The patient is alert and oriented. Mood and affect appeared normal. He answered all questions appropriately. HEENT: Pupils are equal and reactive to light and accommodation. Extraocular movements are intact. The sclerae are anicteric. Neuro: Cranial nerves intact Neck: Patient's neck is supple. He has palpable carotid pulses bilaterally without bruits on auscultation. There is no evidence of jugular venous distention. The thyroid is not enlarged. Lungs: Clear to auscultation bilaterally. He has good air movement without use of accessory muscles. No rales wheezes or rhonchi. Cardiac: Heart demonstrates an irregular rate and rhythm. Normal S1 and S2. No murmurs on examination. Pulses: The patient has palpable radial pulses bilaterally that are equal in intensity Extremities: There was no evidence of hypoperfusion. There is no cyanosis or clubbing. There is no edema. Skin: I did not appreciate any rashes on examination today. Results & Data Vital Signs (Past 12 Hours) Vital Signs Temp Pulse Pulse Resp BP BP Pulse Ox 10/18/18 11:24 36.7 C 75 18 94/69 L 94 10/18/18 09:11 94/62 L 98/64 L 10/18/18 09:09 85/59 L 106/74 10/18/18 08:00 85 10/18/18 07:02 36.6 C 80 18 97/70 L 95 10/18/18 03:19 36.5 C 72 16 105/73 95 10/18/18 00:13 36.8 C 85 16 112/75 95 Laboratory Results Abnormal Lab Results 10/17/18 10/17/18 10/17/18 16:47 16:47 16:47 WBC 11.01 H RBC 4.93 Hgb 15.4 Hct 44.8 MCV 90.9 MCH 31.2 MCHC 34.4 RDW Std Deviation 45.9 RDW Coeff of Negin 13.9 Plt Count 223 MPV 10.0 Immature Gran % (Auto) 0.2 Neut % (Auto) 65.6 Lymph % (Auto) 23.4 [place] % (Auto) 9.4 Eos % (Auto) 1.2 Baso % (Auto) 0.2 Immature Gran # (Auto) 0.02 Neut # (Auto) 7.22 H Lymph # (Auto) 2.58 [place] # (Auto) 1.04 H Eos # (Auto) 0.13 Baso # (Auto) 0.02 PT 10.7 INR 1.0 APTT PTT Ratio Sodium 138 Potassium 3.7 Chloride 106 Carbon Dioxide 24 Anion Gap 8.0 BUN 25 H Creatinine 1.18 Est Cr Clr Drug Dosing 60.0 Est GFR ( Amer) 69.1 Est GFR (Non-Af Amer) 59.6 BUN/Creatinine Ratio 20.9 H Glucose 91 Calcium 8.6 Phosphorus Magnesium Total Bilirubin 0.9 AST 18 ALT 31 Alkaline Phosphatase 99 Troponin I 0.055 H* NT-Pro-B Natriuret Pep Total Protein 6.8 Albumin 3.3 L Globulin 3.5 Albumin/Globulin Ratio 0.9 Triglycerides Cholesterol LDL Cholesterol, Calc VLDL Cholesterol, Calc HDL Cholesterol Cholesterol/HDL Ratio Lipase 108 10/17/18 10/17/18 10/17/18 16:47 16:47 22:25 WBC 13.57 H RBC 5.10 Hgb 16.5 Hct 47.7 MCV 93.5 MCH 32.4 MCHC 34.6 RDW Std Deviation 47.3 H RDW Coeff of Negin 13.8 Plt Count 220 MPV 10.2 Immature Gran % (Auto) 0.3 Neut % (Auto) 64.3 Lymph % (Auto) 24.0 [place] % (Auto) 9.7 Eos % (Auto) 1.5 Baso % (Auto) 0.2 Immature Gran # (Auto) 0.04 H Neut # (Auto) 8.72 H Lymph # (Auto) 3.26 [place] # (Auto) 1.32 H Eos # (Auto) 0.20 Baso # (Auto) 0.03 PT INR APTT 26.4 PTT Ratio 1.0 Sodium Potassium Chloride Carbon Dioxide Anion Gap BUN Creatinine Est Cr Clr Drug Dosing Est GFR ( Amer) Est GFR (Non-Af Amer) BUN/Creatinine Ratio Glucose Calcium Phosphorus 2.9 Magnesium 1.9 Total Bilirubin AST ALT Alkaline Phosphatase Troponin I NT-Pro-B Natriuret Pep Total Protein Albumin Globulin Albumin/Globulin Ratio Triglycerides Cholesterol LDL Cholesterol, Calc VLDL Cholesterol, Calc HDL Cholesterol Cholesterol/HDL Ratio Lipase 10/17/18 10/18/18 10/18/18 22:25 02:00 04:03 WBC RBC Hgb Hct MCV MCH MCHC RDW Std Deviation RDW Coeff of Negin Plt Count MPV Immature Gran % (Auto) Neut % (Auto) Lymph % (Auto) [place] % (Auto) Eos % (Auto) Baso % (Auto) Immature Gran # (Auto) Neut # (Auto) Lymph # (Auto) [place] # (Auto) Eos # (Auto) Baso # (Auto) PT INR APTT 58.6 H* PTT Ratio 2.2 Sodium 141 Potassium 4.3 D Chloride 108 H Carbon Dioxide 29 Anion Gap 4.0 BUN 21 H Creatinine 1.13 Est Cr Clr Drug Dosing 62.2 Est GFR ( Amer) 72.8 Est GFR (Non-Af Amer) 62.8 BUN/Creatinine Ratio 18.6 Glucose 103 H Calcium 8.2 L Phosphorus Magnesium Total Bilirubin 0.7 AST 16 ALT 28 Alkaline Phosphatase 89 Troponin I 0.063 H* 0.061 H* NT-Pro-B Natriuret Pep 2877 H Total Protein 6.2 L Albumin 3.0 L Globulin 3.2 Albumin/Globulin Ratio 0.9 Triglycerides 73 Cholesterol 97 LDL Cholesterol, Calc 30 VLDL Cholesterol, Calc 15 HDL Cholesterol 52 Cholesterol/HDL Ratio 2 Lipase 10/18/18 10/18/18 04:03 04:03 WBC 10.00 RBC 4.78 Hgb 15.0 Hct 43.6 MCV 91.2 MCH 31.4 MCHC 34.4 RDW Std Deviation 46.5 H RDW Coeff of Negin 13.8 Plt Count 207 MPV 10.3 Immature Gran % (Auto) 0.3 Neut % (Auto) 61.9 Lymph % (Auto) 26.7 [place] % (Auto) 9.4 Eos % (Auto) 1.4 Baso % (Auto) 0.3 Immature Gran # (Auto) 0.03 H Neut # (Auto) 6.19 Lymph # (Auto) 2.67 [place] # (Auto) 0.94 H Eos # (Auto) 0.14 Baso # (Auto) 0.03 PT INR APTT 66.1 H* PTT Ratio 2.4 Sodium Potassium Chloride Carbon Dioxide Anion Gap BUN Creatinine Est Cr Clr Drug Dosing Est GFR ( Amer) Est GFR (Non-Af Amer) BUN/Creatinine Ratio Glucose Calcium Phosphorus Magnesium Total Bilirubin AST ALT Alkaline Phosphatase Troponin I NT-Pro-B Natriuret Pep Total Protein Albumin Globulin Albumin/Globulin Ratio Triglycerides Cholesterol LDL Cholesterol, Calc VLDL Cholesterol, Calc HDL Cholesterol Cholesterol/HDL Ratio Lipase Diagnostic Findings Echocardiogram obtained today demonstrated normal LV systolic function with No valvular heart disease. No regional wall motion abnormalities. Dobutamine echocardiogram performed approximately 1 year ago did not demonstrate any evidence of inducible ischemia. Normal LV function and wall motion. ECG Additional Comments: Atrial fibrillation with controlled ventricular rate. Nonspecific ST and T-wave changes PG Care Time/CCT Total # of Minutes Spent Total Time Spent with Patient: Total time spent is greater than 50% in coordination of care (as documented) at patient's floor/unit and/or counseling patient:
--- NOTE | 2018-10-18 13:04 | Hospitalist Progress Note ---
Date of Service October 18, 2018 Assessment & Plan (1) Atrial fibrillation, new onset: Atrial fibs with RVR. - cardiology consult - heparin gtt changed to Xeralto, dc'd hctz, decreased losartan, continue low dose metoprolol - Echo without wma, EF 55% - Continue aspirin 81 mg daily p.o. - Heart healthy diet. (2) Elevated troponin: -No ST segment elevation or depression on the EKG. -Troponin peaked at 0.063 and trending down -Started heparin drip - now transitioned to Xeralto (3) Hypertension: As antihypertensives as above Continue aspirin 81 mg p.o. daily. (4) Hyperlipidemia: Fasting lipids wnl Continue atorvastatin 80 mg p.o. every morning. (5) Benign prostatic hyperplasia: Stable, continue home dose of tamsulosin 0.5 mg p.o. every morning and finasteride 5 mg p.o. every morning. (6) DVT prophylaxis: Xeralto Subjective Mr. Jiménez did have an episode of palpitations and lightheadedness this morning but otherwise is feeling well. His heart rates have ranged mostly 100-120 on the monitor in A.fib. He denies any chest pain Review of Systems Review of Systems: All systems reviewed & are unremarkable except as noted in HPI & below Physical Exam Physical Exam: General: no distress Eyes: normal inspection, PERLL Respiratory: chest non tender, clear to auscultation, normal breath sounds, no respiratory distress, no accessory muscle use Cardiac: irregular rate and rhythm, no rub or gallop, no murmur, no edema, no jvd GI/: active bowel sounds, no abd pain or tenderness, soft, non distended Extremities: normal range of motion, normal strength, non tender Neuro/Psych: alert and oriented x 3, normal mood and affect Skin: normal color, dry Results & Data Vital Signs (Past 12 Hours) Vital Signs Temp Pulse Pulse Resp BP BP Pulse Ox 10/18/18 11:24 36.7 C 75 18 94/69 L 94 10/18/18 09:11 94/62 L 98/64 L 10/18/18 09:09 85/59 L 106/74 10/18/18 08:00 85 10/18/18 07:02 36.6 C 80 18 97/70 L 95 10/18/18 03:19 36.5 C 72 16 105/73 95 PG Care Time/CCT Total # of Minutes Spent Total Time Spent with Patient: Total time spent is greater than 50% in coordination of care (as documented) at patient's floor/unit and/or counseling patient:
[2018-10-18] MEDS ORDERED: METOPROLOL TARTRATE 25 MG TAB PO ONE (15:45)
[2018-10-18] MEDS: RIVAROXABAN 20 MG TAB PO SCH (18:53)
[2018-10-19 06:33] LABS: Basophils # (auto) 0.03 K/uL (0-0.2); Basophils % (auto) 0.2 %; Eosinophils % (auto) 0.8 %; Hematocrit (blood only) 46.7 % (42-52); Hemoglobin 16.2 g/dL (14.0-18.0); Immature Granulocytes # (auto) 0.03 K/uL (0.00-0.02); Immature Granulocytes % (auto) 0.2 %; Lymphocytes # (auto) 2.26 K/uL (1.2-3.4); Lymphocytes % (auto) 18.1 %; Mean Corpuscular Hgb Conc 34.7 g/dL (32-36); Mean Platelet Volume 10.2 fL (7.4-10.4); Monocytes # (auto) 1.24 K/uL (0.11-0.59); Monocytes % (auto) 9.9 %; Neutrophils # (auto) 8.83 K/uL (1.4-6.5); Neutrophils % (auto) 70.8 %; Platelet Count 211 K/uL (130-400); RDW Coefficient of Variation 13.8 % (11.5-14.5); RDW Standard Deviation 46.3 fL (36.4-46.3); Red Blood Count 5.13 M/uL (4.7-6.1); White Blood Count 12.49 K/uL (4.8-10.8)
[2018-10-19 07:08] LABS: Albumin Level 3.3 gm/dl (3.4-5.0); BUN Creatinine Ratio 18.6 (10-20); Calcium 8.2 mg/dl (8.5-10.1); Creatinine Clr Calc Pharmacy 66.6 ml/min; Est GFR (African American) 79.5; Est GFR (Non-African American) 68.6; Potassium 3.6 mmol/L (3.5-5.1)
[2018-10-19 07:11] LABS: Albumin Globulin Ratio 0.9 (0.9-2); Bilirubin,Total 1.1 mg/dl (0.2-1); Globulin 3.6 gm/dl (2.5-4.0); Total Protein 6.9 gm/dl (6.4-8.2)
[2018-10-19] MEDS: METOPROLOL TARTRATE 25 MG TAB PO SCH ×4 (08:44→23:42)
[2018-10-19] MEDS: ASPIRIN 81 MG ECTAB PO SCH (08:45)
[2018-10-19] MEDS: FINASTERIDE 5 MG TAB PO SCH (08:45)
[2018-10-19] MEDS: TAMSULOSIN HCL 0.4 MG CAP PO SCH (08:45)
[2018-10-19] MEDS: ATORVASTATIN 40 MG TAB PO SCH (08:45)
[2018-10-19] MEDS ORDERED: LOSARTAN POTASSIUM 50 MG TAB PO SCH (09:00)
--- NOTE | 2018-10-19 11:02 | Hospitalist Progress Note ---
Date of Service October 19, 2018 Assessment & Plan (1) Atrial fibrillation, new onset: Atrial fibs with RVR. - cardiology consult - heparin gtt changed to Xeralto, dc'd hctz, will dc losartan as well to try and enable 50 mg daily of metoprolol as heart rates continue to run in the 120s - Echo without wma, EF 55% - Continue aspirin 81 mg daily p.o. - Heart healthy diet. (2) Elevated troponin: -No ST segment elevation or depression on the EKG. -Troponin peaked at 0.063 and trending down -Started heparin drip - now transitioned to Xeralto (3) Hypertension: antihypertensives as above Continue aspirin 81 mg p.o. daily. (4) Hyperlipidemia: Fasting lipids wnl Continue atorvastatin 80 mg p.o. every morning. (5) Benign prostatic hyperplasia: Stable, continue home dose of tamsulosin 0.5 mg p.o. every morning and finasteride 5 mg p.o. every morning. (6) DVT prophylaxis: Xeralto (7) Leukocytosis: Unclear source - patient does complain of some irritation when breathing in in his throat/upper chest but no cough, no fever. He feels some tenderness over cervical lymph nodes but I appreciate no lymphadenopathy on exam. Will check a U/A Repeat CBC am Subjective Mr. Jiménez has no complaints except for some irritation in his throat when breathing in at times and some sore lymph nodes. Review of Systems Review of Systems: All systems reviewed & are unremarkable except as noted in HPI & below Physical Exam Physical Exam: General: no distress Eyes: normal inspection, PERLL Respiratory: chest non tender, clear to auscultation, normal breath sounds, no respiratory distress, no accessory muscle use Cardiac: irregular rate and rhythm, no rub or gallop, no murmur, no edema, no jvd GI/: active bowel sounds, no abd pain or tenderness, soft, non distended Extremities: normal range of motion, normal strength, non tender Neuro/Psych: alert and oriented x 3, normal mood and affect Skin: normal color, dry Results & Data Vital Signs (Past 12 Hours) Vital Signs Temp Pulse Resp BP BP Pulse Ox 10/19/18 07:04 36.7 C 77 18 105/75 96 10/19/18 03:53 36.6 C 90 18 129/85 97 10/18/18 23:53 37.0 C 94 H 16 97/61 L 96 PG Care Time/CCT Total # of Minutes Spent Total Time Spent with Patient: Total time spent is greater than 50% in coordination of care (as documented) at patient's floor/unit and/or counseling patient:
[2018-10-19 14:23] LABS: Appearance Urine Clear (Clear); Bacteria Urine Automated Negative (Negative); Bilirubin Urine Negative (Negative); Blood Urine Trace (Negative); Color Urine Yellow; Glucose Urine UA Negative (Negative); Ketones Urine Negative (Negative); Leukocyte Esterase Urine Negative (Negative); Nitrite Urine Negative (Negative); Protein Urine Negative (Negative); RBC Urine Automated 0-4 /hpf (0-4); Specific Gravity Urine 1.019 (1.000-1.030); Urobilinogen Urine Negative (Negative)
--- NOTE | 2018-10-19 16:17 | Cardiology Progress Note ---
Date of Service October 19, 2018 Assessment & Plan (1) Atrial fibrillation, new onset: He is doing better this afternoon. This morning had elevated ventricular rates but did not receive a lot of beta-jana yesterday due to concerns over hypotension. He feels well. His heart rate is much better controlled. His blood pressure looks good. I think we will have good success with a regimen of metoprolol. The exact dose to be determined. His other antihypertensives have been discontinued. I think that is reasonable given his good blood pressures at this point in time. He had arise more benefit from use of a beta-jana in the setting of his coronary disease and prior infarct versus his other medications. Will continue his anticoagulation indefinitely. (2) Elevated troponin: No symptoms of chest discomfort. e. 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 Echocardiogram suggest preserved LV systolic function without regional wall motion abnormality. Stress echocardiogram performed 1 year ago has similar features. I think he will benefit from being on a beta-jana. ARB and hydrochlorothiazide discontinued. Subjective This afternoon the patient was feeling well. He did notice some palpitations early this morning but none currently. He denies significant breathing trouble. No chest pain. He was ambulatory around the lou without significant dizziness or other symptoms. Review of Systems Review of Systems: Per HPI Physical Exam Physical Exam: The patient is alert and oriented. Mood and affect appeared normal. He answered all questions appropriately. HEENT: Pupils are equal and reactive to light and accommodation. Extraocular movements are intact. The sclerae are anicteric. Neuro: Cranial nerves intact Lungs: Clear to auscultation bilaterally. He has good air movement without use of accessory muscles. No rales wheezes or rhonchi. Cardiac: Heart demonstrates an irregular rate and rhythm. Normal S1 and S2. No murmurs on examination. Pulses: The patient has palpable radial pulses bilaterally that are equal in intensity Extremities: There was no evidence of hypoperfusion. There is no cyanosis or clubbing. There is no edema. Skin: I did not appreciate any rashes on examination today. Results & Data Vital Signs (Past 12 Hours) Vital Signs Temp Pulse Resp BP BP Pulse Ox 10/19/18 15:54 36.9 C 73 19 120/77 98 10/19/18 12:29 36.6 C 86 20 107/72 96 10/19/18 07:04 36.7 C 77 18 105/75 96 Laboratory Results Abnormal Lab Results 10/19/18 10/19/18 10/19/18 06:14 06:14 13:44 WBC 12.49 H RBC 5.13 Hgb 16.2 Hct 46.7 MCV 91.0 MCH 31.6 MCHC 34.7 RDW Std Deviation 46.3 RDW Coeff of Negin 13.8 Plt Count 211 MPV 10.2 Immature Gran % (Auto) 0.2 Neut % (Auto) 70.8 Lymph % (Auto) 18.1 [place] % (Auto) 9.9 Eos % (Auto) 0.8 Baso % (Auto) 0.2 Immature Gran # (Auto) 0.03 H Neut # (Auto) 8.83 H Lymph # (Auto) 2.26 [place] # (Auto) 1.24 H Eos # (Auto) 0.10 Baso # (Auto) 0.03 Sodium 139 Potassium 3.6 D Chloride 107 Carbon Dioxide 25 Anion Gap 7.0 BUN 20 H Creatinine 1.05 Est Cr Clr Drug Dosing 66.6 Est GFR ( Amer) 79.5 Est GFR (Non-Af Amer) 68.6 BUN/Creatinine Ratio 18.6 Glucose 100 H Calcium 8.2 L Total Bilirubin 1.1 H D AST 16 ALT 31 Alkaline Phosphatase 95 Total Protein 6.9 Albumin 3.3 L Globulin 3.6 Albumin/Globulin Ratio 0.9 Urine Color Yellow Urine Appearance Clear Urine pH 5.0 Ur Specific [place] 1.019 Urine Protein Negative Urine Glucose (UA) Negative Urine Ketones Negative Urine Blood Trace H Urine Nitrite Negative Urine Bilirubin Negative Urine Urobilinogen Negative Ur Leukocyte Esterase Negative Urine WBC (Auto) 1-5 Urine RBC (Auto) 0-4 U Hyaline Cast (Auto) 1-5 U Epithel Cells (Auto) 5-10 H Urine Bacteria (Auto) Negative PG Care Time/CCT Total # of Minutes Spent Total Time Spent with Patient: Total time spent is greater than 50% in coordination of care (as documented) at patient's floor/unit and/or counseling patient:
[2018-10-19] MEDS: RIVAROXABAN 20 MG TAB PO SCH (18:14)
[2018-10-19] MEDS ORDERED: NURSING DECISION MEDICATION ONE (19:28)
[2018-10-19] MEDS ORDERED: COUGH DROP (SUGAR FREE) LOZ 24 LOZ/1 BOX BUCCAL PRN (19:37)
[2018-10-19] MEDS ORDERED: COUGH DROP (SUGAR FREE) LOZ 24 LOZ/1 BOX BUCCAL ONE (19:37)
[2018-10-20] MEDS: METOPROLOL TARTRATE 25 MG TAB PO SCH ×2 (05:45→08:16)
[2018-10-20 06:31] LABS: Basophils # (auto) 0.03 K/uL (0-0.2); Basophils % (auto) 0.2 %; Eosinophils # (auto) 0.14 K/uL (0-0.5); Eosinophils % (auto) 1.1 %; Hematocrit (blood only) 47.9 % (42-52); Hemoglobin 16.4 g/dL (14.0-18.0); Immature Granulocytes # (auto) 0.03 K/uL (0.00-0.02); Immature Granulocytes % (auto) 0.2 %; Lymphocytes # (auto) 2.39 K/uL (1.2-3.4); Lymphocytes % (auto) 18.1 %; Mean Corpuscular Hgb Conc 34.2 g/dL (32-36); Mean Corpuscular Volume 91.9 fL (80-100); Mean Platelet Volume 10.6 fL (7.4-10.4); Monocytes # (auto) 1.38 K/uL (0.11-0.59); Monocytes % (auto) 10.4 %; Neutrophils # (auto) 9.27 K/uL (1.4-6.5); Platelet Count 220 K/uL (130-400); RDW Coefficient of Variation 13.9 % (11.5-14.5); RDW Standard Deviation 47.1 fL (36.4-46.3); Red Blood Count 5.21 M/uL (4.7-6.1); White Blood Count 13.24 K/uL (4.8-10.8)
[2018-10-20 06:58] LABS: Albumin Level 3.3 gm/dl (3.4-5.0); BUN Creatinine Ratio 17.7 (10-20); Calcium 8.8 mg/dl (8.5-10.1); Creatinine Clr Calc Pharmacy 68.6 ml/min; Est GFR (African American) 82.4; Est GFR (Non-African American) 71.1; Potassium 3.7 mmol/L (3.5-5.1)
[2018-10-20 07:01] LABS: Albumin Globulin Ratio 0.9 (0.9-2); Globulin 3.8 gm/dl (2.5-4.0); Total Protein 7.1 gm/dl (6.4-8.2)
[2018-10-20] MEDS: FINASTERIDE 5 MG TAB PO SCH (08:16)
[2018-10-20] MEDS: ATORVASTATIN 40 MG TAB PO SCH (08:17)
[2018-10-20] MEDS: ASPIRIN 81 MG ECTAB PO SCH (08:17)
[2018-10-20] MEDS: TAMSULOSIN HCL 0.4 MG CAP PO SCH (08:17)
--- NOTE | 2018-10-20 08:52 | Cardiology Progress Note ---
Date of Service October 20, 2018 Assessment & Plan (1) Atrial fibrillation, new onset: His rate control is much improved on the metoprolol. Whether this is the ideal dose for him as yet to be determined. However, I think his rates are well enough controlled that he could be safely discharged. Is not appear to have symptoms with the atrial fibrillation currently. He may require some dose adjustments in the outpatient setting. There is also the option of cardioversion after he has been anticoagulated for few weeks. I think sending him home on metoprolol tartrate 25 mg twice daily would be reasonable starting point. He will continue on his Xarelto indefinitely. I think he can dis continue his aspirin therapy. With respect to his anti hypertensives, his blood pressure appears quite good on metoprolol alone. I think he can be discharged without his losartan or hydrochlorothiazide at this point. (2) Elevated troponin: No symptoms of chest discomfort. (3) Coronary artery disease: He has remote history of myocardial infarction. More recent evaluations have not demonstrated evidence of infarct IgE no wall motion abnormalities on echocardiography. While the may be some incremental benefit to being on aspirin in addition to Xarelto, he likely has a high risk of bleeding on the combination and I think he could safely be discharged on monotherapy with Xarelto. Subjective This morning patient feels well. He was ambulatory yesterday around the lou. He did not report symptoms of dizziness, dyspnea, chest pain or significant palpitation. Review of Systems Review of Systems: Per HPI Physical Exam Physical Exam: The patient is alert and oriented. Mood and affect appeared normal. He answered all questions appropriately. HEENT: Pupils are equal and reactive to light and accommodation. Extraocular movements are intact. The sclerae are anicteric. Neuro: Cranial nerves intact Lungs: Clear to auscultation bilaterally. He has good air movement without use of accessory muscles. No rales wheezes or rhonchi. Cardiac: Heart demonstrates an irregular rate and rhythm. Normal S1 and S2. No murmurs on examination. Pulses: The patient has palpable radial pulses bilaterally that are equal in intensity Extremities: There was no evidence of hypoperfusion. There is no cyanosis or clubbing. There is no edema. Skin: I did not appreciate any rashes on examination today. Results & Data Vital Signs (Past 12 Hours) Vital Signs Temp Pulse Resp BP Pulse Ox 10/20/18 07:48 37 C 79 20 105/74 96 10/20/18 05:45 113/74 10/20/18 04:02 36.5 C 91 H 19 127/82 97 10/20/18 00:03 36.4 C L 81 19 121/67 97 Laboratory Results Abnormal Lab Results 10/19/18 10/20/18 10/20/18 13:44 05:52 05:52 WBC 13.24 H RBC 5.21 Hgb 16.4 Hct 47.9 MCV 91.9 MCH 31.5 MCHC 34.2 RDW Std Deviation 47.1 H RDW Coeff of Negin 13.9 Plt Count 220 MPV 10.6 H Immature Gran % (Auto) 0.2 Neut % (Auto) 70.0 Lymph % (Auto) 18.1 [place] % (Auto) 10.4 Eos % (Auto) 1.1 Baso % (Auto) 0.2 Immature Gran # (Auto) 0.03 H Neut # (Auto) 9.27 H Lymph # (Auto) 2.39 [place] # (Auto) 1.38 H Eos # (Auto) 0.14 Baso # (Auto) 0.03 Sodium 142 Potassium 3.7 Chloride 107 Carbon Dioxide 29 Anion Gap 6.0 BUN 18 Creatinine 1.02 Est Cr Clr Drug Dosing 68.6 Est GFR ( Amer) 82.4 Est GFR (Non-Af Amer) 71.1 BUN/Creatinine Ratio 17.7 Glucose 95 Calcium 8.8 Total Bilirubin 1.0 AST 18 ALT 33 Alkaline Phosphatase 104 Total Protein 7.1 Albumin 3.3 L Globulin 3.8 Albumin/Globulin Ratio 0.9 Urine Color Yellow Urine Appearance Clear Urine pH 5.0 Ur Specific [place] 1.019 Urine Protein Negative Urine Glucose (UA) Negative Urine Ketones Negative Urine Blood Trace H Urine Nitrite Negative Urine Bilirubin Negative Urine Urobilinogen Negative Ur Leukocyte Esterase Negative Urine WBC (Auto) 1-5 Urine RBC (Auto) 0-4 U Hyaline Cast (Auto) 1-5 U Epithel Cells (Auto) 5-10 H Urine Bacteria (Auto) Negative ECG Additional Comments: Persistent atrial fibrillation with improved rate control PG Care Time/CCT Total # of Minutes Spent Total Time Spent with Patient: Total time spent is greater than 50% in coordination of care (as documented) at patient's floor/unit and/or counseling patient:
--- NOTE | 2018-10-20 10:42 | Discharge Summary ---
Date of Service October 20, 2018 Admission HPI Per Admitting Provider Patient is a 77 years old male with past medical history of right hip replacement approximately a year ago, coronary artery disease status post stent to RCA placement by Dr. John in 2010, hypertension, benign prostatic hypertrophy, hyperlipidemia, sleep apnea, osteoarthritis, presents to the emergency room complaining of feeling lightheaded, dizzy feeling that he is going to pass out and having a slight chest pain. Patient states that it started last night about 10 PM and that he had 3 glasses of wine which is his usual and that he all of a sudden started to feel dizzy lightheaded and he checked his pulse on pulse oximetry which noted that it was above 100. Patient states that the more occasions happened in the past months and that each episode lasted approximately 1 hour. Patient denies fever chills chest pain shortness of breath headache abdominal pain hemoptysis hematuria dysuria diarrhea nausea or vomiting patient does not have any complain about eating or drinking habits. Patient saw this morning Dr. Ridley his PCP regarding his lightheadedness and dizziness and he recommended him to go to the emergency room. Patient said that he was before on Plavix for the stent that was placed in his heart but then lately he was taken off of it because he has been more than 5 years on Plavix. Patient reports that he did not take regularly his blood pressure medicine lately because his blood pressure was at the lower side. Chemistry is reviewed: Sodium 139,potassium 3.7, chloride 106 BUN of 25, creatinine 1.18, GFR of 60, troponin elevated of 0.055. EKG shows atrial fibrillation with RVR compared to sinus bradycardia on November 01, 2017. Rate of A. fib's are 105 bpm and ventricular rate of 59 bpm QT interval 352. Chest x-ray show no acute process. The case was discussed with patient and decision was made to admit him to medicine on telemetry and on observation. Principal Diagnosis Atrial fibrillation Discharge Exam Constitutional WD/WN, vitals as above Respiratory normal respiratory effort, lungs clear to auscultation Cardiovascular Rate/Rhythm: + abnormal rhythm Heart Sounds: no murmur Extremities: no edema Gastrointestinal (Abdomen) Inspection/Auscultation: abdomen normal to inspection and normal bowel sounds; abdomen not distended Percussion/Palpation: abdomen soft; abdomen nontender Musculoskeletal no cyanosis or clubbing, extremities motor strength 5/5 Skin no rashes, warm and dry Neurologic moves all extremities and awake Psychiatric A+Ox3, euthymic affect Discharge Data Allergies Allergy/AdvReac Type Severity Reaction Status Date / Time No Known Allergies Allergy Verified 10/17/18 17:20 Consultations 10/17/18 18:16 ED Decision to Admit Stat 10/18/18 08:55 Consult Cardiology Routine Hospital Course (1) Atrial fibrillation, new onset: Atrial fibs with RVR. - cardiology consult - heparin gtt changed to Xeralto, dc'd hctz, and losartan - blood pressure will be maintained with metoprolol 25 mg bid - Echo without wma, EF 55% - discontinue aspirin 81 mg daily p.o. - Heart healthy diet. (2) Elevated troponin: -No ST segment elevation or depression on the EKG. -Troponin peaked at 0.063 and trending down -Started heparin drip - now transitioned to Xeralto (3) Hypertension: metoprolol as above discontinue aspirin 81 mg p.o. daily. (4) Hyperlipidemia: Fasting lipids wnl Continue atorvastatin 80 mg p.o. every morning. (5) Benign prostatic hyperplasia: Stable, continue home dose of tamsulosin 0.5 mg p.o. every morning and finasteride 5 mg p.o. every morning. (6) DVT prophylaxis: Xeralto (7) Leukocytosis: Unclear source U/A without signs of infection - culture pending No other s/s of infection - follow up with primary Total Time Total Time Spent Total Time Spent (In Minutes): greater than 30 minutes Discharge Plan Discharge Items Patient Disposition: Home - Self-Care Reason For Visit: PAROXISMAL AFIBS Discharge Diagnosis: Atrial fibrillation Discharge Goals: Improve disease control Activity: Resume your previous activity Non-emergency contact: Primary Care Provider Call non-emergency contact if: you have any medication questions and your symptoms worsen Follow-up/Referrals: Dominga Ch PA-C [Physician Instrument Man] - 10/29/18 11:15 am (Please, follow up at [facility] Office with Dominga Ch PA-C on MondayOctober 29 at 11:15 am. *The office is located in [address] of [facility] [email or web address] [facility]. [facility] is the big building located next to this [facility]. If you need to change this appointment, call the office at [phone].) Marah Helm MD [Primary Care Provider] - 10/24/18 8:50 am (Please, follow up at the [facility] Office in [address] of [facility] on MondayOctober 24 at 8:[address] Helm' associate, Dr. Ana Arrington. There were no available appointments next week in Dr. Helm' office. *PLEASE, TAKE NOTE OF THE LOCATION FOR THIS APPOINTMENT* IT IS THE BIG BUILDING NEXT TO THIS HOSPITAL If you need to change of cancel this appointment, call the office at [phone].) Diet: Heart Healthy Addtl Provider Instructions: Please check your blood pressure once per day at different of day and keep a log to take to your provider. You should be seated comfortably for at least 5 minutes before checking your blood pressure. You will be sent home with and anticoagulant called rivaroxaban (Xeralto). You should call your doctor right away if you fall or hit your head, if you see blood in your stool or black tarry stools, if you develop little red spots on your skin (petechiae), or if you develop excessive bruising. You may bleed more easily. Be careful and avoid injury. Use a soft toothbrush and an electric razor. Do not to take any [id number] pain medicine except Tylenol (including aspirin, ibuprofen, Motrin, Aleve, Advil, naproxen, diclofenac sodium, oral Voltaren, also not allowed to take fish oil as all these medications increase your incidence of bleeding) You can take Tylenol as needed for pain but not more than 3000 mg per day as a total dose (that is the maximum of 6 tablet, 500 mg each, divided throughout the day) , if you take more than the total of 3000 mg of Tylenol throughout the day you may damage your liver. You will need to follow up with your primary care provider concerning your white blood cell count as it was elevated while here Prescriptions: New metoprolol tartrate 25 mg Tablet 25 mg PO BID Qty: 60 RF: 1 Xarelto 20 mg Tablet 20 mg PO DAILY@1700 Qty: 30 RF: 1 Continued atorvastatin 80 mg Tablet 80 mg PO QAM Qty: 0 RF: 0 tamsulosin 0.4 mg Capsule 0.4 mg PO QAM RF: 0 finasteride 5 mg Tablet 5 mg PO QAM RF: 0 coenzyme Q10 100 mg Capsule 100 mg PO QAM RF: 0 Discontinued hydrochlorothiazide 25 mg Tablet 25 mg PO QAM Qty: 0 RF: 0 losartan 100 mg tablet 100 mg PO QAM RF: 0 aspirin [Ecotrin Low Strength] 81 mg tablet,delayed release (DR/EC) 81 mg PO QAM RF: 0 Stand-Alone Forms: Call Back Authorization, [facility]/Other Patient Handouts: Rivaroxaban Oral tablet Rivaroxaban Oral tablet, Metoprolol Tartrate Hydrochlorothiazide Oral tablet Discharge Orders: Discharge Order (Routine); Ordered 10/20/18 Ordered By: Reva Keller Admission Data Admit Date/Time: 10/17/18 20:40 Attending Provider: Ga Jiménez Admit Provider: Joanna Oh Primary Care Provider: Marah Helm Other Providers: Ga Jiménez ; Pedro Castillo Service: Telemetry Other Pending Studies at Discharge: Yes Studies:: urine culture
== END 2018-10-20 11:25 | disposition home or self-care (01) ==
LOC: ED 16:25 → 2S 16:25 → SUATTDRO 20:40 → 2S 21:46
DX: I25.10 Atherosclerotic heart disease of native coronary artery without angina pectoris; Z79.01 Long term (current) use of anticoagulants; Z79.899 Other long term (current) drug therapy; E78.5 Hyperlipidemia, unspecified; R74.8 Abnormal levels of other serum enzymes; N40.0 Benign prostatic hyperplasia without lower urinary tract symptoms; I25.2 Old myocardial infarction; G47.30 Sleep apnea, unspecified; I10 Essential (primary) hypertension; M19.90 Unspecified osteoarthritis, unspecified site; I48.91 Unspecified atrial fibrillation

== ENCOUNTER 2020-08-28 15:21 | Inpatient (IN) ==
[2020-08-28] MEDS ORDERED: PIPERACILL/TAZOBAC CONSULT ACTIVE PRN ×2 (16:04→22:18)
[2020-08-28] MEDS ORDERED: PIPERACILLIN/TAZOBACTAM 4.5 GM/120 ML BAG IV ONE (16:04)
[2020-08-28] MEDS ORDERED: SODIUM CHLORIDE 0.9% 1000ML 1,000 ML IV ONE (16:04)
--- NOTE | 2020-08-28 16:17 | Emergency Department Note ---
Impression & Plan Intra-abdominal abscess, UTI (urinary tract infection), Left lower quadrant abdominal pain ED Provider Note NAME: ELVIA ESCALANTE AGE: 79 SEX: M ARRIVES VIA: Walk-In INFORMANT: Patient, ED PROVIDER(S): Valerio Kearns MD CHIEF COMPLAINT: Diverticulitis/abscess on outpatient CT. PLAN: Disposition: Admit MEDICAL DECISION MAKING: The patient is a pleasant 79-year-old gentleman with a past medical history of paroxysmal atrial fibrillation on Xarelto, hypertension, hyperlipidemia who presents to the emergency department referred from the [facility] after having outpatient CT scan that demonstrated suspected diverticulitis with abscess in setting of having symptoms that developed several weeks ago when he was in [place] and thought he had gotten food poisoning and has had some fatigue since then but did not have return of abdominal pain until 5 days ago. He denies any fevers, cough, congestion, chest pain, shortness of breath, new urinary symptoms. The patient does follow with urology for BPH and has plans for a cystoscopy next month after being treated with finasteride. Outpatient CT shows suspected bilobed abscess with 2.7cm component abutting the lower pole the left kidney and 2.2cm component abutting the descending colon with differential etiology including diverticular vs pyelonephritis vs less likely mass. On arrival the patient is relatively well-appearing in no acute distress, afebrile stable vital signs. He has mild tenderness of the left lower quadrant without guarding or rebound. WBC wnl. H/H approximate to prior. Platelets wnl. Chemistry without acidosis. Lactic acid wnl. Electrolytes unremarkable. LFTs without significant abnormality. UA is suspicious for infection. Covid-19 PCR negative. Patient ordered for IV Zosyn to initiate treatment. Case d/w general surgery on-call Dr. James who agrees patient can be admitted here to [facility] hospitalist service and he will be available for inpatient team consultation. Case was discussed with Osvaldo Laguna NM CAS with Dr. Wiggins, [facility] ist, who will evaluate the patient for admission. Triage Nursing notes reviewed and agree them. Prior medical records reviewed Vital Signs: reviewed and remarkable for no significant abnormalities Differential diagnosis: Appendicitis, testicular torsion, infections, diverticulitis, UTI, obstruction, mesenteric ischemia, aortic pathology, inflammatory bowel disease, renal colic, PUD, pancreatitis, biliary pathology, hernia, volvulus, constipation, as well as other pathologies. ER treatment provided: See below. Diagnostics interpreted by me: Cardiac Monitoring: An order for continuous cardiac monitoring was placed and demonstrated NSR, 62 bpm, no ectopy. Laboratory studies: See below Imaging studies: OUTPATIENT CT ABDOMEN AND PELVIS CT WITH IV AND ORAL CONTRAST CT DOSE: 541.20 mGy.cm HISTORY: Generalized abdominal pain. Assess for diverticulitis. TECHNIQUE: Multiaxial CT images of the abdomen and pelvis were performed following the use of intravenous and oral contrast. A dose lowering technique was utilized adhering to the principles of ALARA. COMPARISON STUDY: Abdomen and pelvis CT 08/23/2016. FINDINGS: The lung bases are clear. No pneumoperitoneum. No pneumatosis. There is a right total arthroplasty. No suspicious lytic or blastic osseous lesions. The liver, spleen, adrenal glands, and pancreas are unremarkable. Normal right kidney. There is a punctate stone within the gallbladder. No gallbladder wall thickening. Subcentimeter retroperitoneal lymph nodes do not meet CT criteria for pathologic involvement. There is moderate bladder wall thickening which has progressed with minimal adjacent fat stranding. The prostate gland is mildly en larged. The bladder and prostate gland are partially obscured by the metallic artifact within the right hip prosthesis. Multiple colonic diverticula. No change in size of the primary fat-containing lesion within the left iliopsoas muscle. This contains a few punctate calcifications which is also unchanged. This measures approximately 14 x 7 x 5 cm. No associated bony destruction. Normal caliber abdominal aorta. No hydronephrosis. There is mild left periureteral fat stranding. Thick-walled bilobed peripherally enhancing collection abutting the lower pole of the left kidney and the adjacent isrrael ersing descending colon. There is extensive inflammatory change with soft tissue thickening along the lower aspect of the Gerota's fascia best seen image 176. This favors a bilobed abscess given the adjacent inflammatory change. There is thickening of the descending colon at this location. The abscess component abutting the lower pole the left kidney measures 2.7 cm. This is located at the previously described cyst and could represent an infected cyst. The abscess collection abutting the descending colon on image 202 measures 2.2 cm. Etiology is felt to determine but may represent an infected renal cyst with extension to the descending colon. In addition, a peridiverticular abscess from the colon with secondary infection of the adjacent left renal cyst could also have this appearance. Given the associated soft tissue thickening, a renal or colonic mass could also result in this appearance but is considered less likely. Therefore, recommend follow-up to ensure complete resolution. No significant change in the 6 cm cyst within the upper pole the left kidney. No evidence for bowel obstr uction. IMPRESSION: 1. Interval development of a bilobed thick-walled low density collection abutt ing the lower pole of the left kidney and the adjacent descending colon. There is extensive surrounding inflammatory change with a component of soft tissue thickening at Gerota's fascia. In addition, the adjacent descending colon also demonstrates moderate bowel wall thickening. Therefore, this favors a bilobed abscess. This could be from secondary infection of the previously identified left renal cyst at this location from an underlying pyelonephritis or possibly a peridiverticular colonic abscess with secondary infection of the left renal cyst. A neoplastic process is considered less likely but not entirely excluded given the thick-walled appearance of this collection and soft tissue thickening. Therefore, recommend follow-up to ensure complete resolution. 2. Moderate bladder wall thickening with adjacent inflammatory change favors a cystitis. Recommend correlation with urinalysis. 3. No change in the 14 x 7 x 5 cm intramuscular fat-containing lesion within the left iliopsoas muscle. This favors a lipoma given the lack of significant change. 4. These findings were called/faxed to the referring physician following dictation. ACT 112: Positive. There are findings on this exam that require communication between the performing entity and the patient following Patient Test Result Information Act ([place] Act 112) guidelines. Electronically signed by: Rajeev Weathers M.D. 08/28/2020 1:59 PM Consultation(s): Dr. James, general surgery on-call. BERTO Carrasco with Dr. Wiggins, [facility] hospitalist, who will evaluate the patient for admission. HPI: The patient is a pleasant 79-year-old gentleman with a past medical history of paroxysmal atrial fibrillation on Xarelto, hypertension, hyperlipidemia who presents to the emergency department referred from the [facility] after having outpatient CT scan that demonstrated suspected diverticulitis with abscess in setting of having symptoms that developed several weeks ago when he was in [place] and thought he had gotten food poisoning and has had some fati jose since then but did not have return of abdominal pain until 5 days ago. He denies any fevers, cough, congestion, chest pain, shortness of breath, new urinary symptoms. The patient does follow with urology for BPH and has plans for a cystoscopy next month after being treated with finasteride. Outpatient CT shows suspected bilobed abscess with 2.7cm component abutting the lower pole the left kidney and 2.2cm component abutting the descending colon with differential etiology including diverticular vs pyelonephritis vs less likely mass. ROS: See above HPI for pertinent positives & negatives. A total of 10 systems reviewed and were otherwise negative. PAST MEDICAL HISTORY:See Below PAST SURGICAL HISTORY:See Below FAMILY HISTORY:See Below SOCIAL HISTORY:See Below HOME MEDICATIONS:See Below ALLERGIES:See Below VITALS:See Below PHYSICAL EXAMINATION: GENERAL: Awake, alert, well-appearing, in no distress HENT: Normocephalic, atraumatic. Oropharynx with dry mucous membranes and otherwise unremarkable. . EYES: Normal conjunctiva. Sclera non-icteric. NECK: Supple. No nuchal rigidity. FROM. No JVD. RESPIRATORY: Clear to auscultation. CARDIAC: Regular rate, normal rhythm. Extremities warm and well perfused. Pulses equal. ABDOMEN: Soft, non-distended. Mild LLQ tenderness to palpation. No rebound or guarding. No masses. RECTAL: Deferred. MUSCULOSKELETAL: Chest examination reveals no tenderness. The back is symmetrical on inspection without obvious abnormality. There is no CVA tenderness to palpation. No joint edema. LOWER EXTREMITIES: Calves are equal size bilaterally and non-tender. No edema. No discoloration. NEURO: Normal sensorium. No sensory or motor deficits noted. SKIN: No rash or jaundice noted. Valerio Kearns MD Past Med/Surg History Medical History Acute urinary retention Atrial fibrillation, new onset Benign prostatic hyperplasia BPH (benign prostatic hyperplasia) Bradycardia ASYMPTOMATIC ON BETA SABINE CAD (coronary artery disease) 2009 s/p MAREK to dRCA Chronic anticoagulation Elevated troponin HLD (hyperlipidemia) HTN (hypertension) Hx of myocardial infarction 2009 s/p MAREK to dRCA Hyperlipidemia Hypertension Leukocytosis Osteoarthritis Sleep apnea CPAP (PATIENT HAS NOT RECEIVED CPAP DEVICE YET) Surgical History Hx of cardiac cath 06/20/2009- SD WITH MAREK STENT TO RCA Hx of cataract surgery RIGHT AND LEFT Hx of local excision of skin lesion Right upper arm Dr. James 10-16-18 Family History Other No significant family history Social History Smoking Status: Never smoker Cigarettes Per Day: INTERMITTENT; Second Hand Exposure: No; Do You Dip or Chew Tobacco: No; Tobacco Cessation Education Requested by Patient: No Hx Alcohol Use: Yes Alcohol type: wine Hx Substance Use: No Preferred Language: Slovak Communication Ability: Effective Visual Impairment: No Limitations [employer] Required: No Beliefs That Will Affect Care: None Current Living Situation: Spouse Other Information That Helps Us Care for You: No Feels Safe at Home: Yes Safety Concerns: Feels Safe At This Time Assistive Devices: Hearing Aid - Bilateral and Hearing Aid - Left Allergies Allergies Allergy/AdvReac Type Severity Reaction Status Date / Time metoprolol AdvReac Intermediate Diarhea Verified 08/28/20 17:55 Home Meds Home Medications Medication Instructions Recorded Confirmed coenzyme Q10 100 mg PO QAM 10/17/18 08/28/20 aspirin 81 mg tablet,delayed 81 mg PO .COMPLEX 06/22/20 08/28/20 release methenamine hippurate 1 g PO DAILY 08/28/20 08/28/20 Previous Rx's Medication Instructions Recorded atorvastatin 80 mg tablet 80 mg PO QAM #90 tab 10/02/19 rivaroxaban 20 mg tablet 20 mg PO DAILY #90 tab 10/02/19 finasteride 5 mg tablet 5 mg PO DAILY #90 tab 02/24/20 tamsulosin 0.4 mg capsule 0.4 mg PO HS #90 cap 02/24/20 losartan 50 mg tablet 50 mg PO DAILY #90 tab 03/16/20 clobetasol 0.05 % topical cream 1 applic TOPICAL BID 14 Days #30 g 06/22/20 Results & Data (ED) Vital Signs Vital Signs - 24 hr 08/28/20 15:25 08/28/20 16:04 08/28/20 16:07 Temperature 36.7 C Temperature Source Temporal Artery Scan Pulse Rate 64 60 Pulse Rate [Apical] 62 Pulse Rate from SpO2 Sensor 60 Pulse Rhythm Pulse Rhythm [Apical] Regular Respiratory Rate 18 16 16 Respiratory Effort / Characteristics Non-Labored Respiratory Depth Normal Blood Pressure 134/85 149/92 H Blood Pressure [Right Arm] 149/92 H Blood Pressure Mean 101 111 Blood Pressure Mean [Right Arm] 111 Blood Pressure Position [Right Arm] Sitting Pulse Oximetry 95 96 95 Oxygen Delivery Method Room Air Room Air Sepsis Recent Fever Within 48 Hours No Sepsis New/Unexplained Change in Mental Status No Sepsis Action Taken by Nursing No Action Required 08/28/20 16:22 08/28/20 16:25 08/28/20 16:30 Temperature Temperature Source Pulse Rate 61 58 L 60 Pulse Rate [Apical] Pulse Rate from SpO2 Sensor 58 L 60 Pulse Rhythm Regular Pulse Rhythm [Apical] Respiratory Rate 16 19 21 Respiratory Effort / Characteristics Respiratory Depth Blood Pressure Blood Pressure [Right Arm] Blood Pressure Mean Blood Pressure Mean [Right Arm] Blood Pressure Position [Right Arm] Pulse Oximetry 98 95 96 Oxygen Delivery Method Room Air Sepsis Recent Fever Within 48 Hours Sepsis New/Unexplained Change in Mental Status Sepsis Action Taken by Nursing 08/28/20 17:00 08/28/20 17:30 08/28/20 17:54 Temperature Temperature Source Pulse Rate 57 L 55 L 60 Pulse Rate [Apical] Pulse Rate from SpO2 Sensor 57 L 56 L 60 Pulse Rhythm Pulse Rhythm [Apical] Respiratory Rate 17 16 22 Respiratory Effort / Characteristics Respiratory Depth Blood Pressure 149/92 H 168/91 H 168/91 H Blood Pressure [Right Arm] Blood Pressure Mean 111 116 116 Blood Pressure Mean [Right Arm] Blood Pressure Position [Right Arm] Pulse Oximetry 96 96 97 Oxygen Delivery Method Sepsis Recent Fever Within 48 Hours Sepsis New/Unexplained Change in Mental Status Sepsis Action Taken by Nursing 08/28/20 18:00 08/28/20 18:02 08/28/20 18:03 Temperature Temperature Source Pulse Rate 77 82 61 Pulse Rate [Apical] Pulse Rate from SpO2 Sensor 61 Pulse Rhythm Pulse Rhythm [Apical] Respiratory Rate 17 20 14 Respiratory Effort / Characteristics Respiratory Depth Blood Pressure 153/121 H Blood Pressure [Right Arm] Blood Pressure Mean 131 Blood Pressure Mean [Right Arm] Blood Pressure Position [Right Arm] Pulse Oximetry 96 97 Oxygen Delivery Method Sepsis Recent Fever Within 48 Hours Sepsis New/Unexplained Change in Mental Status Sepsis Action Taken by Nursing 08/28/20 18:30 08/28/20 18:31 Temperature Temperature Source Pulse Rate 55 L 59 L Pulse Rate [Apical] Pulse Rate from SpO2 Sensor 55 L 60 Pulse Rhythm Pulse Rhythm [Apical] Respiratory Rate 14 16 Respiratory Effort / Characteristics Respiratory Depth Blood Pressure 142/84 H Blood Pressure [Right Arm] Blood Pressure Mean 103 Blood Pressure Mean [Right Arm] Blood Pressure Position [Right Arm] Pulse Oximetry 96 96 Oxygen Delivery Method Sepsis Recent Fever Within 48 Hours Sepsis New/Unexplained Change in Mental Status Sepsis Action Taken by Nursing Laboratory Data Attestation: I reviewed the patient's lab results. Result diagrams: 08/28/20 16:05 08/28/20 16:05 Lab Results 08/28/20 08/28/20 08/28/20 Range/Units 16:05 16:05 16:05 WBC 10.51 (4.8-10.8) K/uL RBC 4.24 L (4.7-6.1) M/uL Hgb 13.4 L (14.0-18.0) g/dL Hct 39.9 L (42-52) % MCV 94.1 (80-100) fL MCH 31.6 (25-34) pg MCHC 33.6 (32-36) g/dL RDW Std Deviation 45.5 (36.4-46.3) fL RDW Coeff of Negin 13.2 (11.5-14.5) % Plt Count 328 (130-400) K/uL MPV 8.9 (7.4-10.4) fL Immature Gran % (Auto) 0.3 % Neut % (Auto) 76.1 % Lymph % (Auto) 11.7 % Carlton % (Auto) 11.1 % Eos % (Auto) 0.7 % Baso % (Auto) 0.1 % Neut # (Auto) 8.00 H (1.4-6.5) K/uL Lymph # (Auto) 1.23 (1.2-3.4) K/uL Carlton # (Auto) 1.17 H (0.11-0.59) K/uL Eos # (Auto) 0.07 (0-0.5) K/uL Baso # (Auto) 0.01 (0-0.2) K/uL Immature Gran # (Auto) 0.03 H (0.00-0.02) K/uL ESR 70 H (0-20) mm/hr Sodium 140 (136-145) mmol/L Potassium 4.3 (3.5-5.1) mmol/L Chloride 106 (98-107) mmol/L Carbon Dioxide 30 (21-32) mmol/L Anion Gap 4.0 (3-11) BUN 17 (7-18) mg/dl Creatinine 0.82 (0.6-1.4) mg/dl Est Cr Clr Drug Dosing 78.4 ml/min Est GFR ( Amer) 98.2 ml/min Est GFR (Non-Af Amer) 84.7 ml/min BUN/Creatinine Ratio 20.7 H (10-20) Glucose 91 (70-99) mg/dl Lactate (0.4-2.0) mmol/L Calcium 8.7 (8.5-10.1) mg/dl Magnesium 1.9 (1.8-2.4) mg/dl Total Bilirubin 0.7 (0.2-1) mg/dl AST 16 (15-37) U/L ALT 32 (12-78) U/L Alkaline Phosphatase 77 (45-117) U/L C-Reactive Protein 6.89 H (0-0.29) mg/dl Total Protein 7.2 (6.4-8.2) gm/dl Albumin 2.8 L (3.4-5.0) gm/dl Globulin 4.4 H (2.5-4.0) gm/dl Albumin/Globulin Ratio 0.6 L (0.9-2) Procalcitonin (0-0.5) ng/ml COVID-19 Eval Order SARS-CoV-2 (PCR) (Negative) 08/28/20 08/28/20 08/28/20 Range/Units 16:05 16:36 16:40 WBC (4.8-10.8) K/uL RBC (4.7-6.1) M/uL Hgb (14.0-18.0) g/dL Hct (42-52) % MCV (80-100) fL MCH (25-34) pg MCHC (32-36) g/dL RDW Std Deviation (36.4-46.3) fL RDW Coeff of Negin (11.5-14.5) % Plt Count (130-400) K/uL MPV (7.4-10.4) fL Immature Gran % (Auto) % Neut % (Auto) % Lymph % (Auto) % Carlton % (Auto) % Eos % (Auto) % Baso % (Auto) % Neut # (Auto) (1.4-6.5) K/uL Lymph # (Auto) (1.2-3.4) K/uL Carlton # (Auto) (0.11-0.59) K/uL Eos # (Auto) (0-0.5) K/uL Baso # (Auto) (0-0.2) K/uL Immature Gran # (Auto) (0.00-0.02) K/uL ESR (0-20) mm/hr Sodium (136-145) mmol/L Potassium (3.5-5.1) mmol/L Chloride (98-107) mmol/L Carbon Dioxide (21-32) mmol/L Anion Gap (3-11) BUN (7-18) mg/dl Creatinine (0.6-1.4) mg/dl Est Cr Clr Drug Dosing ml/min Est GFR ( Amer) ml/min Est GFR (Non-Af Amer) ml/min BUN/Creatinine Ratio (10-20) Glucose (70-99) mg/dl Lactate 1.3 (0.4-2.0) mmol/L Calcium (8.5-10.1) mg/dl Magnesium (1.8-2.4) mg/dl Total Bilirubin (0.2-1) mg/dl AST (15-37) U/L ALT (12-78) U/L Alkaline Phosphatase (45-117) U/L C-Reactive Protein (0-0.29) mg/dl Total Protein (6.4-8.2) gm/dl Albumin (3.4-5.0) gm/dl Globulin (2.5-4.0) gm/dl Albumin/Globulin Ratio (0.9-2) Procalcitonin < 0.05 (0-0.5) ng/ml COVID-19 Eval Order Covid19 at [facility] SARS-CoV-2 (PCR) (Negative) 08/28/20 Range/Units 16:40 WBC (4.8-10.8) K/uL RBC (4.7-6.1) M/uL Hgb (14.0-18.0) g/dL Hct (42-52) % MCV (80-100) fL MCH (25-34) pg MCHC (32-36) g/dL RDW Std Deviation (36.4-46.3) fL RDW Coeff of Negin (11.5-14.5) % Plt Count (130-400) K/uL MPV (7.4-10.4) fL Immature Gran % (Auto) % Neut % (Auto) % Lymph % (Auto) % Carlton % (Auto) % Eos % (Auto) % Baso % (Auto) % Neut # (Auto) (1.4-6.5) K/uL Lymph # (Auto) (1.2-3.4) K/uL Carlton # (Auto) (0.11-0.59) K/uL Eos # (Auto) (0-0.5) K/uL Baso # (Auto) (0-0.2) K/uL Immature Gran # (Auto) (0.00-0.02) K/uL ESR (0-20) mm/hr Sodium (136-145) mmol/L Potassium (3.5-5.1) mmol/L Chloride (98-107) mmol/L Carbon Dioxide (21-32) mmol/L Anion Gap (3-11) BUN (7-18) mg/dl Creatinine (0.6-1.4) mg/dl Est Cr Clr Drug Dosing ml/min Est GFR ( Amer) ml/min Est GFR (Non-Af Amer) ml/min BUN/Creatinine Ratio (10-20) Glucose (70-99) mg/dl Lactate (0.4-2.0) mmol/L Calcium (8.5-10.1) mg/dl Magnesium (1.8-2.4) mg/dl Total Bilirubin (0.2-1) mg/dl AST (15-37) U/L ALT (12-78) U/L Alkaline Phosphatase (45-117) U/L C-Reactive Protein (0-0.29) mg/dl Total Protein (6.4-8.2) gm/dl Albumin (3.4-5.0) gm/dl Globulin (2.5-4.0) gm/dl Albumin/Globulin Ratio (0.9-2) Procalcitonin (0-0.5) ng/ml COVID-19 Eval Order SARS-CoV-2 (PCR) NEGATIVE (Negative) Administered Medications Clobetasol Propionate (Clobetasol Propionate 0.05% Oint 15 Gm Tube) 1 appln EXT BID [facility] Stop: 09/27/20 22:17 Last Admin: 08/28/20 23:31 Dose: Not Given Documented by: [id number] Heparin Sodium (Porcine) (Heparin Sod 5,000 Unit/0.5 Ml Vial) 5,000 units SQ Q12 AIME Stop: 09/27/20 22:17 Last Admin: 08/28/20 23:33 Dose: 5,000 units Documented by: [id number] Piperacillin Sod/Tazobactam (Sod 3.375 gm/ Dextrose) 115 mls @ 28.75 mls/hr IV Q8H AIME; Protocol Stop: 09/07/20 22:59 Last Admin: 08/28/20 23:34 Dose: 28.8 mls/hr Documented by: [id number] Dextrose/Lactated Ringer's (D5w And Lactated Ringers) 1,000 mls @ 80 mls/hr IV .[id number] [facility] Stop: 09/27/20 22:17 Last Admin: 08/28/20 23:08 Dose: 80 mls/hr Documented by: [id number] Tamsulosin HCl (Tamsulosin Hcl 0.4 Mg Cap) 0.4 mg PO HS [facility] Stop: 09/27/20 22:17 Last Admin: 08/28/20 23:32 Dose: 0.4 mg Documented by: [id number] Discontinued Medications Sodium Chloride (Nss 1000ml) 1,000 mls @ 999 mls/hr IV .[id number] ONE Stop: 08/28/20 17:04 Last Infusion: 08/28/20 17:33 Dose: 0 mls/hr Documented by: [id number] Admin: 08/28/20 16:36 Dose: 999 mls/hr Documented by: [id number] Piperacillin Sod/Tazobactam Sod (Zosyn) 4.5 gm in 120 mls @ 240 mls/hr IV NOW ONE Stop: 08/28/20 16:33 Last Infusion: 08/28/20 17:15 Dose: 0 mls/hr Documented by: [id number] Admin: 08/28/20 16:35 Dose: 240 mls/hr Documented by: [id number] Acetaminophen (Ofirmev) 1,000 mg in 100 mls @ 400 mls/hr IV NOW STA Stop: 08/28/20 16:47 Last Infusion: 08/28/20 17:33 Dose: 0 mls/hr Documented by: [id number] Admin: 08/28/20 17:15 Dose: 400 mls/hr Documented by: [id number] Discharge Plan Visit Data Chief Complaint: GI Assessment Stated Complaint: DIVERTICULITIS/REFERRED BY ED Provider: Valerio Kearns Discharge Problem: Intra-abdominal abscess, UTI (urinary tract infection), Left lower quadrant abdominal pain Patient Disposition: Admitted As Inpatient Discharge Instructions Interventions: ED Discharge Assessment Last Done: 08/28/20 20:41 Discharge Problem: UTI (urinary tract infection) Qualifiers: Urinary tract infection type: site unspecified Hematuria presence: without hematuria Qualified Code(s): N39.0 - Urinary tract infection, site not specified
[2020-08-28 16:18] LABS: Basophils # (auto) 0.01 K/uL (0-0.2); Basophils % (auto) 0.1 %; Eosinophils # (auto) 0.07 K/uL (0-0.5); Eosinophils % (auto) 0.7 %; Hematocrit (blood only) 39.9 % (42-52); Hemoglobin 13.4 g/dL (14.0-18.0); Immature Granulocytes # (auto) 0.03 K/uL (0.00-0.02); Immature Granulocytes % (auto) 0.3 %; Lymphocytes # (auto) 1.23 K/uL (1.2-3.4); Lymphocytes % (auto) 11.7 %; Mean Corpuscular Hemoglobin 31.6 pg (25-34); Mean Corpuscular Hgb Conc 33.6 g/dL (32-36); Mean Corpuscular Volume 94.1 fL (80-100); Mean Platelet Volume 8.9 fL (7.4-10.4); Monocytes # (auto) 1.17 K/uL (0.11-0.59); Monocytes % (auto) 11.1 %; Neutrophils % (auto) 76.1 %; Platelet Count 328 K/uL (130-400); RDW Coefficient of Variation 13.2 % (11.5-14.5); RDW Standard Deviation 45.5 fL (36.4-46.3); Red Blood Count 4.24 M/uL (4.7-6.1); White Blood Count 10.51 K/uL (4.8-10.8)
[2020-08-28 16:31] LABS: Appearance Urine Clear (Clear); Bacteria Urine Automated 2+ (Negative); Bilirubin Urine Negative (Negative); Blood Urine 1+ (Negative); Color Urine Yellow; Epithelial Cell Urine Auto 0-5 /lpf (0-5); Glucose Urine UA Negative (Negative); Ketones Urine Negative (Negative); Leukocyte Esterase Urine 1+ (Negative); Nitrite Urine Positive (Negative); Protein Urine Negative (Negative); RBC Urine Automated 0-4 /hpf (0-4); Specific Gravity Urine > 1.045 (1.000-1.030); Urobilinogen Urine Negative (Negative); WBC Urine Automated >30 /hpf (0-5)
[2020-08-28] MEDS ORDERED: ACETAMINOPHEN 1,000 MG/100 ML VIAL IV STA (16:33)
[2020-08-28 16:36] LABS: Albumin Level 2.8 gm/dl (3.4-5.0); BUN Creatinine Ratio 20.7 (10-20); Calcium 8.7 mg/dl (8.5-10.1); Creatinine Clr Calc Pharmacy 78.4 ml/min; Est GFR (African American) 98.2 ml/min; Est GFR (Non-African American) 84.7 ml/min; Magnesium 1.9 mg/dl (1.8-2.4); Potassium 4.3 mmol/L (3.5-5.1)
[2020-08-28 16:39] LABS: Albumin Globulin Ratio 0.6 (0.9-2); Bilirubin,Total 0.7 mg/dl (0.2-1); Globulin 4.4 gm/dl (2.5-4.0); Total Protein 7.2 gm/dl (6.4-8.2)
--- NOTE | 2020-08-28 18:14 | History & Physical Report ---
Date of Service August 28, 2020 Assessment & Plan (1) Intra-abdominal abscess: Intra-abdominal abscess left. Infected renal cyst vs. colonic abscess- Has history of left renal cysts as well as diverticular disease - Surgery consulted- Dr. James - Continue Zosyn- dosed 3.375 GM IV q8 - Non-toxic appearing - WBC 10.5, NLR: 6:1; lactate 1.3 - PCT/CRP/ESR pending - NPO - Hold Xarelto - Continue Aspirin - Re-image 24-48 hour antibiotic therapy - Blood cultures pending - D5LR at 80ml/hr CT Scan- interval development of a bilobed thick-walled low density collection abutting the lower pole of the left kidney and the adjacent descending colon. There is extensive surrounding inflammatory change with a component of soft tissue thickening at Gerota's fascia. In addition, the adjacent descending colon also demonstrates moderate bowel wall thickening. Therefore, this favors a bilobed abscess. This could be from secondary infection of the previously identified left renal cyst at this location from an underlying pyelonephritis or possibly a peridiverticular colonic abscess with secondary infection of the left renal cyst. A neoplastic process is considered less likely but not entirely excluded given the thick-walled appearance of this collection and soft tissue thickening. Therefore, recommend follow-up to ensure complete resolution. 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 - Hold Xarelto - Follow telemetry (3) CAD (coronary artery disease): PCI to RCA 2009- on ASA - Continue daily (4) Benign prostatic hyperplasia: Self-cath daily 1x - Patient requests to use his catheters - Bladder scans PRN and post cath - Continue finasteride 5mg daily - Was to follow up with Urology next month for TURP (5) Hyperlipidemia: Continue (6) UTI (urinary tract infection): As above, continue with Zosyn - follow clinically History of Present Illness Primary Care Provider: Marah Helm MD 79 YOM with past medical history of: CAD with MAREK-2010 to distal RCA, HTN, HLD, Paroxysmal Afib (on Rivaroxaban), urinary frequency, ball-valve BPH with retention/necrogenic bladder- self-cath once per day, renal cysts(left)- last imaged 2018 via ultrasound, Colonoscopy 2012 with diverticular disease, and right hip replacement. Patient started to have left sided pain about 3 weeks ago while he was on a trip to [place] for work. He originally thought he had food poisoning as the pain was sharp and associated with diarrheal episodes, fevers, and nausea without vomiting. This got better the next day with his diarrhea and nausea, but his left sided pain continued to wax and wain. Today he went to his PCP because the pain was starting to increase on his left side again. He denies any fevers, or chills, has had some increase in his diarrhea. The diarrhea is not bloody or have mucous. He had a CT scan of his abdomen and pelvis performed while in the [facility]. This was noted for an abscess collection abutting the descending colon. Dr. Kearns spoke with Dr. James from GS team. Patient was started on Zosyn IV in the EMD. Blood and Urine cultures were obtained. Patient will be admitted to follow his response to IV antibiotics and infectious process. General Surgery consulted as above. Patient will be kept NPO. He will be admitted to Medical Surgical for his history of PAF. For his Paroxysmal Afib. The patient reports he has had brief episodes and has always been short lived originally diagnosed during acute illness in 2019. His most recent episode in July 2020 was slightly prolonged. This episode was also the same trip to [place] as above, where he had his abdominal pain. The patient has been on Xarelto since 2019. He has had diarrhea while on Metoprolol in the past and decline a CCB when following up with Dr. John earlier this month. Patient had a history of CPAP use in the past, but was remedied by planned weight loss. His Xarelto will be held incase of surgical need. If he returns back to AFIB he has a CHADVASC of 2- will readdress need for anticoagulation at that time. Allergies Allergy/AdvReac Type Severity Reaction Status Date / Time metoprolol AdvReac Intermediate Diarhea Verified 08/28/20 17:55 Home Medications Medication Instructions Recorded Confirmed Type coenzyme Q10 100 mg PO QAM 10/17/18 08/28/20 History atorvastatin 80 mg tablet 80 mg PO QAM #90 tab 10/02/19 08/28/20 Rx rivaroxaban 20 mg tablet 20 mg PO DAILY #90 tab 10/02/19 08/28/20 Rx finasteride 5 mg tablet 5 mg PO DAILY #90 tab 02/24/20 08/28/20 Rx tamsulosin 0.4 mg capsule 0.4 mg PO HS #90 cap 02/24/20 08/28/20 Rx losartan 50 mg tablet 50 mg PO DAILY #90 tab 03/16/20 08/28/20 Rx aspirin 81 mg tablet,delayed 81 mg PO .COMPLEX 06/22/20 08/28/20 History release clobetasol 0.05 % topical cream 1 applic TOPICAL BID 14 Days #30 g 06/22/20 08/28/20 Rx methenamine hippurate 1 g PO DAILY 08/28/20 08/28/20 History ciprofloxacin HCl 500 mg PO BID 8 Days #16 tab 08/30/20 Rx metronidazole 500 mg PO Q8H 8 Days #24 tab 08/30/20 Rx Past Med/Surg History Medical History Acute urinary retention Atrial fibrillation, new onset Benign prostatic hyperplasia BPH (benign prostatic hyperplasia) Bradycardia ASYMPTOMATIC ON BETA SABINE CAD (coronary artery disease) 2009 s/p MAREK to dRCA Chronic anticoagulation Elevated troponin HLD (hyperlipidemia) HTN (hypertension) Hx of myocardial infarction 2009 s/p MAREK to dRCA Hyperlipidemia Hypertension Leukocytosis Osteoarthritis Sleep apnea CPAP (PATIENT HAS NOT RECEIVED CPAP DEVICE YET) Surgical History Hx of cardiac cath 06/20/2009- CT WITH MAREK STENT TO RCA Hx of cataract surgery RIGHT AND LEFT Hx of local excision of skin lesion Right upper arm Dr. 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 Beliefs That Will Affect Care: None Current Living Situation: Spouse Feels Safe at Home: Yes Assistive Devices: None Review of Systems Review of Systems: REVIEW OF SYSTEMS: Constitutional: No fever, sweats or chills Eyes: No diplopia, no worsening or blurred vision ENT: normal hearing, no trouble swallowing Respiratory: No cough, sputum, dyspnea at rest or on exertion Cardiovascular: No chest pain, tightness or palpitations Abdomen: (+) pain, nausea, diarrhea, NO vomiting, constipation : (+) BPH, self caths 1x per day Musculoskeletal: No joint pain, calf pain, swelling Neurologic: No weakness, numbness/tingling, or balance problems Psychiatric: No anxiety or depression Skin: No rash or itch Physical Exam Physical Exam: PHYSICAL EXAM: General: awake, alert, no apparent distress Head: Normocephalic, atraumatic ENT: PERRL, EOMI, no pharyngeal exudate, mucous membranes moist Neuro: AAO x 3, speech clear and appropriate, strength intact bilaterally 5/5, sensation intact and equal all extremities and dermatomes, no pronator drift Chest: equal rise and fall of the chest, no accessory muscle use, no heaves or thrills, Clear to auscultation, on room air, Cardiac: Regular rate and rhythm, telemetry reviewed- sinus sylvia to NSR, skin warm dry, cap refill <3 seconds, peripheral pulses, +2 no JVD, no murmur, no edema GI: NABS x 4 quadrants, soft, tender to palpation left lower quad/flank, no rebound, guarding or tenderness : Spontaneously voiding, no pain, no CVA tenderness, denies any change in urine symptoms or urine color/odor Extremities: Normal inspection, no peripheral edema or erythema, calfs nontender to palpation Psych: Normal mood and affect Skin: no rash or erythema Results & Data Results & Data ([facility]) Vital Signs (Past 12 Hours) Vital Signs Temp Pulse Pulse Resp BP BP Pulse Ox 08/28/20 17:30 55 L 16 168/91 H 96 08/28/20 17:00 57 L 17 149/92 H 96 08/28/20 16:30 60 21 96 08/28/20 16:25 58 L 19 95 08/28/20 16:22 61 16 98 08/28/20 16:07 60 16 149/92 H 95 08/28/20 16:04 62 16 149/92 H 96 08/28/20 15:25 36.7 C 64 18 134/85 95 Laboratory Results Abnormal lab results 06/18/21 06/18/21 06/18/21 Range/Units 16:05 16:05 Unknown RBC 4.24 L (4.7-6.1) M/uL Hgb 13.4 L (14.0-18.0) g/dL Hct 39.9 L (42-52) % Neut # (Auto) 8.00 H (1.4-6.5) K/uL Weld # (Auto) 1.17 H (0.11-0.59) K/uL Immature Gran # (Auto) 0.03 H (0.00-0.02) K/uL BUN/Creatinine Ratio 20.7 H (10-20) Albumin 2.8 L (3.4-5.0) gm/dl Globulin 4.4 H (2.5-4.0) gm/dl Albumin/Globulin Ratio 0.6 L (0.9-2) Ur Specific [place] > 1.045 H (1.000-1.030) Urine Blood 1+ H (Negative) Urine Nitrite Positive A (Negative) Ur Leukocyte Esterase 1+ H (Negative) Urine WBC (Auto) >30 H (0-5) /hpf Urine Bacteria (Auto) 2+ H (Negative) Diagnostic Findings ABDOMEN AND PELVIS CT WITH IV AND ORAL CONTRAST CT DOSE: 541.20 mGy.cm HISTORY: Generalized abdominal pain. Assess for diverticulitis. TECHNIQUE: Multiaxial CT images of the abdomen and pelvis were performed following the use of intravenous and oral contrast. A dose lowering technique was utilized adhering to the principles of ALARA. COMPARISON STUDY: Abdomen and pelvis CT 08/23/2016. FINDINGS: The lung bases are clear. No pneumoperitoneum. No pneumatosis. There is a right total arthroplasty. No suspicious lytic or blastic osseous lesions. The liver, spleen, adrenal glands, and pancreas are unremarkable. Normal right kidney. There is a punctate stone within the gallbladder. No gallbladder wall thickening. Subcentimeter retroperitoneal lymph nodes do not meet CT criteria for pathologic involvement. There is moderate bladder wall thickening which has progressed with minimal adjacent fat stranding. The prostate gland is mildly enlarged. The bladder and prostate gland are partially obscured by the metallic artifact within the right hip prosthesis. Multiple colonic diverticula. No change in size of the primary fat-containing lesion within the left iliopsoas muscle. This contains a few punctate calcifications which is also unchanged. This measures approximately 14 x 7 x 5 cm. No associated bony destruction. Normal caliber abdominal aorta. No hydronephrosis. There is mild left periureteral fat stranding. Thick-walled bilobed peripherally enhancing collection abutting the lower pole of the left kidney and the adjacent traversing descending colon. There is extensive inflammatory change with soft tissue thickening along the lower aspect of the Gerota's fascia best seen image 176. This favors a bilobed abscess given the adjacent inflammatory change. There is thickening of the descending colon at this location. The abscess component abutting the lower pole the left kidney measures 2.7 cm. This is located at the previously described cyst and could represent an infected cyst. The abscess collection abutting the descending colon on image 202 measures 2.2 cm. Etiology is felt to determine but may represent an infected renal cyst with extension to the descending colon. In addition, a peridiverticular abscess from the colon with secondary infection of the adjacent left renal cyst could also have this appearance. Given the associated soft tissue thickening, a renal or colonic mass could also result in this appearance but is considered less likely. Therefore, recommend follow-up to ensure complete resolution. No significant change in the 6 cm cyst within the upper pole the left kidney. No evidence for bowel obstructi on. IMPRESSION: 1. Interval development of a bilobed thick-walled low density collection abutting the lower pole of the left kidney and the adjacent descending colon. There is extensive surrounding inflammatory change with a component of soft tissue thickening at Gerota's fascia. In addition, the adjacent descending colon also demonstrates moderate bowel wall thickening. Therefore, this favors a bilobed abscess. This could be from secondary infection of the previously identified left renal cyst at this location from an underlying pyelonephritis or possibly a peridiverticular colonic abscess with secondary infection of the left renal cyst. A neoplastic process is considered less likely but not entirely excluded given the thick-walled appearance of this collection and soft tissue thickening. Therefore, recommend follow-up to ensure complete resolution. 2. Moderate bladder wall thickening with adjacent inflammatory change favors a cystitis. Recommend correlation with urinalysis. 3. No change in the 14 x 7 x 5 cm intramuscular fat-containing lesion within the left iliopsoas muscle. This favors a lipoma given the lack of significant change. 4. These findings were called/faxed to the referring physician following dictation. Electronically signed by: Rajeev Weathers M.D. 08/28/2020 1:59 PM XR chest 1V portable HISTORY: 79 years-old Male Sepsis acute sepsis with nausea and vomiting COMPARISON: Chest radiograph 10/17/2018 TECHNIQUE: Portable AP view of the chest FINDINGS: Cardiomediastinal and hilar silhouettes are unchanged. No pneumothorax, large pleural effusion, overt pulmonary edema or airspace consolidation typical for pneumonia. Mild blunting of the left lateral costophrenic angle. Degenerative changes of the shoulders and spine. Mild convex right curvature of the midthoracic spine. IMPRESSION: No acute process. ACT 112: Negative or not required by law. The above report was generated using voice recognition software. It may contain grammatical, syntax or spelling errors. Medications Administered Discontinued Medications Sodium Chloride (Nss 1000ml) 1,000 mls @ 999 mls/hr IV .Q1H1M ONE Stop: 08/28/20 17:04 Last Infusion: 08/28/20 17:33 Dose: 0 mls/hr Documented by: [id number] Admin: 08/28/20 16:36 Dose: 999 mls/hr Documented by: [id number] Piperacillin Sod/Tazobactam Sod (Zosyn) 4.5 gm in 120 mls @ 240 mls/hr IV NOW ONE Stop: 08/28/20 16:33 Last Infusion: 08/28/20 17:15 Dose: 0 mls/hr Documented by: [id number] Admin: 08/28/20 16:35 Dose: 240 mls/hr Documented by: [id number] Acetaminophen (Ofirmev) 1,000 mg in 100 mls @ 400 mls/hr IV NOW STA Stop: 08/28/20 16:47 Last Infusion: 08/28/20 17:33 Dose: 0 mls/hr Documented by: [id number] Admin: 08/28/20 17:15 Dose: 400 mls/hr Documented by: [id number] ECG Additional Comments: Sinus bradycardia Otherwise normal ECG When compared with ECG of 18-OCT-2018 07:34, Sinus rhythm has replaced Atrial fibrillation Code Status & VTE Plan Code Status CODE: FULL VTE: SCD's, Heparin 5000 subq BID, ambulation Supervising Physician Co-Signing Physician Notes Attending Attestation - Pt seen/examined, chart reviewed, care plan d/w [facility] [place]. I agree w/ the [facility] components of his documentation. Pleasant 79yo male - h/o CAD s/p CT & stents, PAF, neurogenic bladder w/ need for self-cathing, HTN - presenting with ~3 weeks of left-sided lower abdominal pain with nausea and diarrhea. Pain waxing/waning but then worsened prior to admission prompting a visit to his PCP's office, then to the ER. CT of abd/pelvis in ER with bilobed abscess abutting the left kidney and the descending colon. ?diverticular abscess, vs renal abscess? -- former favored by the reading radiologist. During ER visit patient was resting comfortably. PMH, PSH, allergies, meds, sochx, famhx - reviewed VSS, no fever gen - NAD heart - RRR, s1 s2 lungs - CTA b/l abd - tender LLQ, BS+, mildly distended, no HSM ext - no edema labs reviewed CT abd/pelvis reviewed A/P: 1. 2.7cm x 2.2cm bilobed abscess - left abdomen - suspected to be diverticular in origin. Has known diverticulosis in the left colon. Renal abscess felt much less likely. Agree with IV zosyn, IV fluids, bowel rest. Hold xarelto in the event he would need surgical intervention (IR drainage, etc). Agree with gen surg consultation. May need GI and/or consultations. 2. CAD, PAF, HTN - stable, controlled, no ischemic symptoms. Holding xarelto as above. 3. h/o neurogenic bladder - self-cathing. ua mildly dirty - culture sent. Zosyn will certainly cover. Felice Wiggins MD PG Care Time/CCT Total # of Minutes Spent Total Time Spent with Patient: Total time spent is greater than 50% in coordination of care (as documented) at patient's floor/unit and/or counseling patient: Coding Level of Care Code 71572 Initial Inpt Care Lvl 3 Diagnoses Intra-abdominal abscess K65.1 PAF (paroxysmal atrial fibrillation) I48.0 CAD (coronary artery disease) I25.10 Associated angina: without angina Coronary Disease-Associated Artery/Lesion type: [place] artery [place] vs. transplanted heart: [place] heart Benign prostatic hyperplasia N40.1 Lower urinary tract symptom detail: unspecified Lower urinary tract symptom presence: symptoms present Hyperlipidemia E78.5 Hyperlipidemia type: unspecified UTI (urinary tract infection) N39.0; R31.9 Hematuria presence: with hematuria Urinary tract infection type: site unspecified (1) UTI (urinary tract infection) Hematuria presence: with hematuria Urinary tract infection type: site unspecified Qualified Code(s): N39.0 - Urinary tract infection, site not specified; R31.9 - Hematuria, unspecified (2) Benign prostatic hyperplasia Lower urinary tract symptom detail: unspecified Lower urinary tract symptom presence: symptoms present Qualified Code(s): N40.1 - Benign prostatic hyperplasia with lower urinary tract symptoms (3) CAD (coronary artery disease) Associated angina: without angina Coronary Disease-Associated Artery/Lesion type: [place] artery [place] vs. transplanted heart: [place] heart Qualified Code(s): I25.10 - Atherosclerotic heart disease of [place] coronary artery without angina pectoris (4) Hyperlipidemia Hyperlipidemia type: unspecified Qualified Code(s): E78.5 - Hyperlipidemia, unspecified
[2020-08-28] MEDS ORDERED: ACETAMINOPHEN 325 MG TAB PO PRN (22:18)
[2020-08-28] MEDS ORDERED: ONDANSETRON INJ 2 MG/ML 2 ML VIAL IV PRN (22:18)
--- NOTE | 2020-08-28 22:57 | Surgery Consultation ---
Date of Consultation August 28, 2020 Assessment & Plan (1) Intra-abdominal abscess: The etiology of the intra-abdominal abscess has not been clearly ascertained. May be secondary to an infected renal cyst or from diverticular disease. Patient has been admitted to the hospitalist service and we will proceed as follows: Bowel rest with n.p.o. status IV fluid for hydration Provide analgesics Provide antiemetics Provide antibiotics. The patient is currently receiving Zosyn Follow serial labs We will monitor the patient's clinical status. At the present time there is no clear indication for emergent surgical intervention. If surgical intervention is to be entertained would be ideal to clear his infection with antibiotics prior to any surgery. Subcu heparin is in place for DVT prevention History of Present Illness Reason for Consultation: Intra-abdominal abscess Attending Physician: Felice Wiggins History of Present Illness This is a 79-year-old male who was referred to the emergency department by his primary care team due to CT scan findings that will be delineated below. Proximally 3 weeks ago the patient was on a business trip on the [facility] and he started have some left-sided abdominal pain for which she thought he had food poisoning. Patient did have some associated diarrhea along with feeling feverish and having nausea with dry heaves. Patient says that his symptoms did improve for the most part but his abdominal pain began to wax and wane. He did seek medical attention with his primary care physician because the pain on the left side as noted above was beginning to get worse. She has noted some diarrhea without any bright red blood per rectum or melanotic stools. As noted above he has had some dry heaves. He denies any modifying factors or radiation of the pain. Patient does note he had a colonoscopy in 2012 which revealed diverticular disease but he says he has never had a bout of diverticulitis. Patient does also report a known history of renal cysts. Earlier today the patient had a CT scan which was arranged by his primary care team. The CT scan showed development of a bilobed thick-walled density collection which was abutting the left kidney at the lower pole along with a segment of the adjacent descending colon. Dense inflammatory changes were no susana. The interpreting radiologist felt that this represented a bilobed abscess which could possibly be from an infected renal cyst or from diverticular disease. Patient was referred to the emergency department due to a CT scan findings. In the emergency department patient had additional labs which I dependently reviewed. His white blood cell count was noted to be within normal range. His hemoglobin and hematocrit were 13.4 and 39.9. Platelet count was noted to be normal. Chemistry profile showed a sodium, potassium, BUN, and creatinine were all within normal range. There were no elevation of his LFTs. Urinalysis did show positive nitrites. The urinalysis also showed a 1+ positive leukocyte Estrace along with greater than 30 white blood cells per high-power field. 2+ bacteria was noted. He did have a Covid test performed which was negative. At the time of my interview the patient was resting comfortably in bed. He was in no distress. He does note that his abdominal pain has improved. Allergies Allergy/AdvReac Type Severity Reaction Status Date / Time metoprolol AdvReac Intermediate Diarhea Verified 08/28/20 17:55 Home Medications Medication Instructions Recorded Confirmed Type coenzyme Q10 100 mg PO QAM 10/17/18 08/28/20 History atorvastatin 80 mg tablet 80 mg PO QAM #90 tab 10/02/19 08/28/20 Rx rivaroxaban 20 mg tablet 20 mg PO DAILY #90 tab 10/02/19 08/28/20 Rx finasteride 5 mg tablet 5 mg PO DAILY #90 tab 02/24/20 08/28/20 Rx tamsulosin 0.4 mg capsule 0.4 mg PO HS #90 cap 02/24/20 08/28/20 Rx losartan 50 mg tablet 50 mg PO DAILY #90 tab 03/16/20 08/28/20 Rx aspirin 81 mg tablet,delayed 81 mg PO .COMPLEX 06/22/20 08/28/20 History release clobetasol 0.05 % topical cream 1 applic TOPICAL BID 14 Days #30 g 06/22/20 08/28/20 Rx methenamine hippurate 1 g PO DAILY 08/28/20 08/28/20 History Patient History Medical History Acute urinary retention Atrial fibrillation, new onset Benign prostatic hyperplasia BPH (benign prostatic hyperplasia) Bradycardia ASYMPTOMATIC ON BETA SABINE CAD (coronary artery disease) 2009 s/p MAREK to dRCA Chronic anticoagulation Elevated troponin HLD (hyperlipidemia) HTN (hypertension) Hx of myocardial infarction 2009 s/p MAREK to dRCA Hyperlipidemia Hypertension Leukocytosis Osteoarthritis Sleep apnea CPAP (PATIENT HAS NOT RECEIVED CPAP DEVICE YET) Surgical History Hx of cardiac cath 06/20/2009- [place] WITH MAREK STENT TO RCA Hx of cataract surgery RIGHT AND LEFT Hx of local excision of skin lesion Right upper arm Dr. 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 Required: No Beliefs That Will Affect Care: None Current Living Situation: Spouse Other Information That Helps Us Care for You: No Feels Safe at Home: Yes Safety Concerns: Feels Safe At This Time Assistive Devices: Hearing Aid - Bilateral and Hearing Aid - Left Review of Systems Constitutional: + fever Eyes: no diplopia Ear, Nose, Mouth, Throat: no ear pain Respiratory: no cough and no dyspnea Cardiovascular: no chest pain Gastrointestinal: + abdominal pain, + nausea and + vomiting Genitourinary: no dysuria Musculoskeletal: no back pain Integumentary: no rash Neurologic: no localized weakness Physical Exam Constitutional: well developed and well nourished; no acute distress Eyes: no conjunctival abnormality ENMT: Ears: no hearing impairment Neck: trachea midline Respiratory: normal respiratory effort, lungs clear to auscultation Cardiovascular: Rate/Rhythm: regular rate and regular rhythm Gastrointestinal (Abdomen): Abdomen is soft and nondistended. There is no rebound tenderness or guarding. Bowel sounds are present. Patient had minimal pain with palpation particular with deep palpation in the left lower quadrant. Musculoskeletal: No calf tenderness Skin: no rashes, warm and dry Neurologic: moves all extremities Psychiatric: A+Ox3, euthymic affect Results & Data ([facility]) Vital Signs (Past 12 Hours) Vital Signs Temp Pulse Pulse Resp BP BP Pulse Ox 08/28/20 20:31 59 L 15 95 08/28/20 20:30 58 L 18 147/93 H 94 08/28/20 20:01 53 L 17 95 08/28/20 20:00 55 L 21 146/97 H 95 08/28/20 19:31 58 L 16 97 08/28/20 19:30 59 L 17 162/91 H 95 08/28/20 19:01 58 L 13 96 08/28/20 19:00 56 L 17 143/87 H 95 08/28/20 18:53 57 L 18 142/85 H 95 08/28/20 18:31 59 L 16 96 08/28/20 18:30 55 L 14 142/84 H 96 08/28/20 18:03 61 14 97 08/28/20 18:02 82 20 153/121 H 96 08/28/20 18:00 77 17 08/28/20 17:54 60 22 168/91 H 97 08/28/20 17:30 55 L 16 168/91 H 96 08/28/20 17:00 57 L 17 149/92 H 96 08/28/20 16:30 60 21 96 08/28/20 16:25 58 L 19 95 08/28/20 16:22 61 16 98 08/28/20 16:07 60 16 149/92 H 95 08/28/20 16:04 62 16 149/92 H 96 08/28/20 15:25 36.7 C 64 18 134/85 95 PG Care Time/CCT Total # of Minutes Spent Total Time Spent with Patient: Total time spent is greater than 50% in coordination of care (as documented) at patient's floor/unit and/or counseling patient: Coding Level of Care Code 27140 Inpt Consult Level 4 Diagnoses Intra-abdominal abscess K65.1
[2020-08-28] MEDS: D5W AND LACTATED RINGERS 1,000 ML IV SCH (23:08)
[2020-08-28 23:24] LABS: C Reactive Protein 6.89 mg/dl (0-0.29)
[2020-08-28] MEDS: CLOBETASOL PROPIONATE 0.05% OINT 15 GM TUBE EXT SCH (23:31)
[2020-08-28] MEDS: TAMSULOSIN HCL 0.4 MG CAP PO SCH (23:32)
[2020-08-28] MEDS: HEPARIN SOD 5,000 UNIT/0.5 ML VIAL SQ SCH (23:33)
[2020-08-28] MEDS: PIPERACILLIN/TAZOBACTAM 3.375 GM in DEXTROSE 5% 100 ML IV SCH (23:34)
--- NOTE | 2020-08-29 05:47 | Surgery Progress Note ---
Date of Service August 29, 2020 Assessment & Plan (1) Intra-abdominal abscess: The patient has been admitted by the hospitalist. We will continue to proceed as follows: Continue antibiotics. Patient is receiving Zosyn day #2 Continue n.p.o. status Continue analgesics as needed Continue antiemetics as needed I discussed with the patient that the etiology of his intra-abdominal abscess could be either related to infected renal cyst or from potential diverticular disease involving his colon. I discussed with him that it would be preferable to treat his infection with antibiotics at the present time rather than performing any surgical intervention. He expresses understanding. Subcu heparin is in place for DVT prevention as above. pt feeling much better. ? GI vs urologic source of infection. minimal left sided tenderness. continue antibiotics. will start clears. will rec he f/u with urology after d/c and will recommend colonoscopy in a couple months. will continue to follow for now. Admission and Anticipated Discharge Date Admission Date: August 28, 2020 Subjective The patient notes that his abdominal pain has markedly improved since admission. He denies any fevers, shakes, chills. He has not had any nausea or vomiting. He notes he is having bowel movements however they are loose. He denies any bright red blood per rectum or melanotic appearing stools. Physical Exam Gastrointestinal (Abdomen): Bowel sounds are present. Abdomen is soft and nondistended. There is minimal pain with any palpation. No rebound tenderness or guarding noted. Results & Data ([place]) Vital Signs (Past 12 Hours) Vital Signs Temp Pulse Pulse Resp BP BP Pulse Ox 08/29/20 04:07 37.0 C 56 L 18 148/87 H 94 08/29/20 02:47 59 L 08/29/20 00:47 36.8 C 70 18 161/87 H 95 08/28/20 23:36 36.8 C 58 L 18 149/89 H 96 08/28/20 20:31 59 L 15 95 08/28/20 20:30 58 L 18 147/93 H 94 08/28/20 20:01 53 L 17 95 08/28/20 20:00 55 L 21 146/97 H 95 08/28/20 19:31 58 L 16 97 08/28/20 19:30 59 L 17 162/91 H 95 08/28/20 19:01 58 L 13 96 08/28/20 19:00 56 L 17 143/87 H 95 08/28/20 18:53 57 L 18 142/85 H 95 08/28/20 18:31 59 L 16 96 08/28/20 18:30 55 L 14 142/84 H 96 08/28/20 18:03 61 14 97 08/28/20 18:02 82 20 153/121 H 96 08/28/20 18:00 77 17 08/28/20 17:54 60 22 168/91 H 97 PG Care Time/CCT Total # of Minutes Spent Total Time Spent with Patient: Total time spent is greater than 50% in coordination of care (as documented) at patient's floor/unit and/or counseling patient: Coding Level of Care Code 55428 Subseq Hosp Care Lvl 2 Diagnoses Intra-abdominal abscess K65.1
[2020-08-29] MEDS: PIPERACILLIN/TAZOBACTAM 3.375 GM in DEXTROSE 5% 100 ML IV SCH ×3 (07:15→23:14)
[2020-08-29] MEDS: CLOBETASOL PROPIONATE 0.05% OINT 15 GM TUBE EXT SCH ×2 (08:27→19:36)
[2020-08-29] MEDS: LOSARTAN POTASSIUM 50 MG TAB PO SCH (08:28)
[2020-08-29] MEDS: HEPARIN SOD 5,000 UNIT/0.5 ML VIAL SQ SCH ×2 (08:28→19:37)
[2020-08-29] MEDS: ATORVASTATIN 40 MG TAB PO SCH (08:28)
[2020-08-29] MEDS: FINASTERIDE 5 MG TAB PO SCH (08:28)
[2020-08-29] MEDS ORDERED: NON-FORMULARY MEDICATION (Coenzyme Q10 100 mg Capsule) PO SCH (09:00)
--- NOTE | 2020-08-29 10:12 | Urology Consultation ---
Date of Consultation August 29, 2020 Assessment & Plan (1) Neurogenic bladder, flaccid: (2) Renal cyst: Presumed infectious process adjacent to the kidney and colon on the leftinitial source uncertain I have reviewed his old films including old CT and ultrasound examinations of the kidney and it appears that he had a left lower pole cystconfirmation of the cystic nature of this confirmed on ultrasound as his prior CTs did not involve contrast He has a larger cyst in the midpole of the kidney He now has inflammation around the lower pole cyst but also adjacent to the colon His symptoms seem to have improved substantially with IV antibiotics and hydration which is extremely encouraging He does not exhibit a lot of symptoms right now and his culture is challenging to interpret given his chronic use of catheters For now I believe supportive care would be most appropriate -continue antibiotics and IV fluids Based on the CT I suspect that his cyst is what is present adjacent to the inflammation and it does not represent an abscess but simply inflammation with a fluid-filled structure in the central area being the cyst itself I do not think it is likely that the cyst is actively infected We will continue to follow and change course if his symptoms change or he fails to respond to conservative treatment History of Present Illness Attending Physician: Lorenzo Gordon DO History of Present Illness 79-year-old gentleman who has experienced several weeks of left upper quadrant/flank pain and was admitted overnight secondary to an exacerbation in symptoms Consultation of urology secondary to imaging findings with perinephric inflammation surrounding a left lower pole renal cysts as well as the colon - challenging to discern the etiology of the inflammation He relate an interesting story that he experienced what he thought was food poisoning several weeks ago He had GI upset with dry heaves/nausea This lasted for several days Then progressed to slightly different symptomatology in terms of location of the pain and the nature of the GI symptoms He denies any associated urinary symptoms He does perform CIC regularly He has not experienced hematuria He has not experienced bladder related pain or pressure Creatinine is 0.8 He has no leukocytosis Lactate 1.3 UA is nitrite positive -also with WBCschallenging to interpret given concurrent CIC Allergies Allergy/AdvReac Type Severity Reaction Status Date / Time metoprolol AdvReac Intermediate Diarhea Verified 08/28/20 17:55 Home Medications Medication Instructions Recorded Confirmed Type coenzyme Q10 100 mg PO QAM 10/17/18 08/28/20 History atorvastatin 80 mg tablet 80 mg PO QAM #90 tab 10/02/19 08/28/20 Rx rivaroxaban 20 mg tablet 20 mg PO DAILY #90 tab 10/02/19 08/28/20 Rx finasteride 5 mg tablet 5 mg PO DAILY #90 tab 02/24/20 08/28/20 Rx tamsulosin 0.4 mg capsule 0.4 mg PO HS #90 cap 02/24/20 08/28/20 Rx losartan 50 mg tablet 50 mg PO DAILY #90 tab 03/16/20 08/28/20 Rx aspirin 81 mg tablet,delayed 81 mg PO .COMPLEX 06/22/20 08/28/20 History release clobetasol 0.05 % topical cream 1 applic TOPICAL BID 14 Days #30 g 06/22/20 08/28/20 Rx methenamine hippurate 1 g PO DAILY 08/28/20 08/28/20 History Patient History Medical History Acute urinary retention Atrial fibrillation, new onset Benign prostatic hyperplasia BPH (benign prostatic hyperplasia) Bradycardia ASYMPTOMATIC ON BETA SABINE CAD (coronary artery disease) 2009 s/p MAREK to dRCA Chronic anticoagulation Elevated troponin HLD (hyperlipidemia) HTN (hypertension) Hx of myocardial infarction 2009 s/p MAREK to dRCA Hyperlipidemia Hypertension Leukocytosis Osteoarthritis Sleep apnea CPAP (PATIENT HAS NOT RECEIVED CPAP DEVICE YET) Surgical History Hx of cardiac cath 06/20/2009- [place] WITH MRAEK STENT TO RCA Hx of cataract surgery RIGHT AND LEFT Hx of local excision of skin lesion Right upper arm Dr. 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 Required: No Beliefs That Will Affect Care: None Current Living Situation: Spouse Other Information That Helps Us Care for You: No Feels Safe at Home: Yes Safety Concerns: Feels Safe At This Time Assistive Devices: Hearing Aid - Bilateral and Hearing Aid - Left Physical Exam Physical Exam: No severe tenderness on the left flank Constitutional: well developed and well nourished Neck: neck nontender Respiratory: normal respiratory effort; no respiratory distress and does not use accessory muscles Cardiovascular: Rate/Rhythm: regular rate Vessels: radial pulses present Extremities: no edema Gastrointestinal (Abdomen): Inspection/Auscultation: abdomen normal to inspection Percussion/Palpation: abdomen soft; abdomen nontender and no guarding Musculoskeletal: Head/Neck/Chest: normocephalic and head atraumatic E xtremities: extremities normal to inspection Skin: no rashes and no lesions Trauma: no evidence of skin trauma Neurologic: awake; not obtunded Speech / Cognition: normal speech Motor/Sensory: no tremor Psychiatric: Orientation: alert and oriented x 3 Genitourinary: no CVA tenderness Lymphatic: no lymphadenopathy Results & Data ([facility]) Vital Signs (Past 12 Hours) Vital Signs Temp Pulse Pulse Pulse Resp BP Pulse Ox 08/29/20 07:36 36.8 C 62 16 149/89 H 95 08/29/20 04:07 37.0 C 56 L 18 148/87 H 94 08/29/20 02:47 59 L 08/29/20 00:47 36.8 C 70 18 161/87 H 95 08/28/20 23:36 36.8 C 58 L 18 149/89 H 96 PG Care Time/CCT Total # of Minutes Spent Total Time Spent with Patient: Total time spent is greater than 50% in coordination of care (as documented) at patient's floor/unit and/or counseling patient: Coding Level of Care Code 65812 Inpt Consult Level 4 Diagnoses Neurogenic bladder, flaccid N31.2 Renal cyst N28.1
--- NOTE | 2020-08-29 10:56 | Electrocardiogram Report ---
Test Reason : Blood Pressure : / mmHG Vent. Rate : 058 BPM Atrial Rate : 058 BPM P-R Int : 148 ms QRS Dur : 088 ms QT Int : 424 ms P-R-T Axes : 024 021 041 degrees QTc Int : 416 ms Sinus bradycardia Otherwise normal ECG When compared with ECG of 18-OCT-2018 07:34, Sinus rhythm has replaced Atrial fibrillation Vent. rate has decreased BY 30 BPM Confirmed by Joel Castillo ([id number]) on 08/29/2020 10:56:33 AM Referred By: Mian Arana Confirmed By:Hardik Castillo
--- NOTE | 2020-08-29 11:04 | Electrocardiogram Report ---
Test Reason : Blood Pressure : / mmHG Vent. Rate : 058 BPM Atrial Rate : 058 BPM P-R Int : 154 ms QRS Dur : 090 ms QT Int : 442 ms P-R-T Axes : 051 002 035 degrees QTc Int : 433 ms Sinus bradycardia Otherwise normal ECG When compared with ECG of 28-AUG-2020 16:29, (unconfirmed) No significant change was found Confirmed by Joel Castillo ([id number]) on 08/29/2020 11:04:12 AM Referred By: Mian Arana Confirmed By:Hardik Castillo
[2020-08-29] MEDS: D5W AND LACTATED RINGERS 1,000 ML IV SCH (11:41)
--- NOTE | 2020-08-29 15:41 | Hospitalist Progress Note ---
Date of Service August 29, 2020 Assessment & Plan (1) Renal cyst: Mo Jiménez is a 79 year man with a past medical history significant for CAD, BPH who presents with intra-abdominal infection seen on outpatient CT scan Abdominal pain, Abscess Patient appears to have intra-abdominal abscess, vital stable, inflammatory markers elevated, white count normal, lactate negative Urine culture positive for E. Coli sensitivities pending, Blood culture pending CT scan showing 2.7 cm in largest dimension renal cyst that appears to be infected questionable colonic primary with infected cyst vs primary renal abscess with colonic wall involvement General Surgery consulted recommended no surgical intervention at present and continued Antibiotics Urology saw patient as well and feel this likely represents a colonic infection immediately adjacent to noninfected pre-existing cyst Will allow patient to eat Continue Zosyn for intra-abdominal infection, repeat CT scan tomorrow will continue to monitor CBC and blood cultures Clinical improvement with 24 hours of Antibiotics and hydration is reassuring BPH Continue with self catheterization as needed Follow up with urology as an outpatientfor possible TURP CAD Stable, MAREK placed several years ago, no concerns at present Dispo: Admit for continued observation, IV antibiotics and repeat CT scan tomorrow DVT PPx: Restarting rivaroxaban F/E/N: HEarth healthy diet Full Code (2) Left lower quadrant abdominal pain: (3) UTI (urinary tract infection): (4) CAD (coronary artery disease): (5) Intra-abdominal abscess: (6) Incomplete emptying of bladder: Admission and Anticipated Discharge Date Admission Date: August 28, 2020 Supervising Physician Co-Signing Physician Notes Patient seen and examined independently of PGY 3 Dr. Arana. Agree with history, exam findings, assessment and plan as outlined. In brief, Mr. Jiménez is a 79-year-old male with history of paroxysmal A. fib anticoagulated with Xarelto, CAD and BPH admitted with possible intra-abdominal abscess versus infected cyst in the left lower pole of the kidney. This morning, he reports that his pain is better. He has not had any nausea, vomiting or diarrhea. No fevers overnight. Vital signs and nursing notes reviewed Nontoxic-appearing. Heart with regular rate and rhythm. No lower extremity edema. Lungs are clear to auscultation in all lung jiménez. No wheezing, rhonchi or rales. Abdomen with good bowel sounds. He has minimal tenderness to the left mid lateral abdomen. No CVA tenderness. Labs significant for an ESR of 70, CRP 6.89. Pro-Lorenzo is negative. CT of the abdomen and pelvis shows a bilobed thick-walled collection abutting the lower pole of the left kidney and adjacent to the descending colon. There is surrounding inflammatory change. There is some moderate bowel wall thickening of the adjacent descending colon. Infection of the left renal cyst versus peridiverticular clinic abscess. 1. Abdominal abscess possibly secondary to diverticulitis. Continue with IV fluids and Zosyn. Plan for repeat CT of the abdomen and pelvis in the morning. Blood cultures are pending. We will start to advance diet. Appreciate general surgery and urology recommendations. 2. Paroxysmal A. fib. Normal sinus rhythm now. Continue residential monitor. We can restart his home Xarelto. 3. BPH. Continue with self-catheterization. His UA is abnormal but difficult to interpret in the setting of self-catheterization. 4. E. coli in the urine. Awaiting sensitivities. Continue Zosyn. Dispo: pending clinical improvement. Subjective Mo Jiménez is resting comfortably this morning, no complaints of pain at present though abdomen is still slightly tender to touch on left side but less than yesterday. No new concerns Review of Systems Review of Systems: All systems reviewed & are unremarkable except as noted in HPI & below Physical Exam Physical Exam: Constitutional: WEll appearing 79 year old man appearing younger than stated age easily conversive Eyes: PERRLA, EOMMI b/l ENMT: NAD Respiratory: no tachypnea, no increased work of breathing, lung sounds vesicular throughout. Cardiovascular: Regular rate regular rhythm, no m/r/s/g , peripheral pulses strong and equal, no lower limb edema GI: Abdomen soft, mildly tender lateral aspect of left upperquadrant. NO masses. Skin: Warm dry and well perfused Neuro: No focal abnormalities, ambulating well Results & Data Results & Data ([facility]) Vital Signs (Past 12 Hours) Vital Signs Temp Pulse Pulse Resp BP Pulse Ox 08/29/20 12:19 37.0 C 69 16 129/81 97 08/29/20 07:36 36.8 C 62 16 149/89 H 95 08/29/20 04:07 37.0 C 56 L 18 148/87 H 94 Resident Activity Tracking Resident Involvement: Resident Care Provided Care Provided: Adult Hospital Medicine (1) UTI (urinary tract infection) Hematuria presence: without hematuria Urinary tract infection type: site unspecified Qualified Code(s): N39.0 - Urinary tract infection, site not specified (2) CAD (coronary artery disease) Associated angina: without angina Coronary Disease-Associated Artery/Lesion type: [place] artery [place] vs. transplanted heart: [place] heart Qualified Cod e(s): I25.10 - Atherosclerotic heart disease of [place] coronary artery without angina pectoris
[2020-08-29] MEDS: TAMSULOSIN HCL 0.4 MG CAP PO SCH (19:38)
[2020-08-30] MEDS: D5W AND LACTATED RINGERS 1,000 ML IV SCH (00:16)
--- NOTE | 2020-08-30 05:59 | Surgery Progress Note ---
Date of Service August 30, 2020 Assessment & Plan (1) Intra-abdominal abscess: The patient has been admitted by the hospitalist. We will continue to proceed as follows: Continue antibiotics. Patient is receiving Zosyn day #3 Diet has advanced to solid food which he is tolerating Plans noted by the primary service for repeat CT scan today which we will review when available Patient will likely require colonoscopy once this acute infection has resolved Urology input noted and is not felt that the renal cyst is the source of infection Subcu heparin is in place for DVT prevention As above. Patient feeling fine and states no pain whatsoever this morning. He is tolerating a regular diet. At this point there is no indication for surgical intervention. We will sign off. I would recommend that he have a colonoscopy in the next 2 to 3 months. Is also going to follow-up with urology who he is already established with. Admission and Anticipated Discharge Date Admission Date: August 28, 2020 Subjective The patient notes he is doing well. He denies any worsening abdominal pain and at the present time his pain is nearly nonexistent. He notes his bowels are moving. He denies any nausea or vomiting. His diet was advanced to solid food yesterday which he tolerated without any worsening pain. Physical Exam Gastrointestinal (Abdomen): Abdomen is soft, nontender, and nondistended. There is no pain with palpation. Results & Data ([facility]) Vital Signs (Past 12 Hours) Vital Signs Temp Pulse Pulse Resp BP Pulse Ox 08/30/20 04:00 36.8 C 72 18 156/82 H 96 08/29/20 23:46 37.0 C 57 L 18 141/97 H 96 08/29/20 23:21 56 L 08/29/20 19:37 36.8 C 62 18 134/85 98 PG Care Time/CCT Total # of Minutes Spent Total Time Spent with Patient: Total time spent is greater than 50% in coordination of care (as documented) at patient's floor/unit and/or counseling patient: Coding Level of Care Code 54919 Subseq Hosp Care Lvl 2 Diagnoses Intra-abdominal abscess K65.1
[2020-08-30 06:37] LABS: Basophils # (auto) 0.02 K/uL (0-0.2); Basophils % (auto) 0.2 %; Eosinophils # (auto) 0.21 K/uL (0-0.5); Eosinophils % (auto) 2.3 %; Hematocrit (blood only) 40.2 % (42-52); Hemoglobin 13.2 g/dL (14.0-18.0); Immature Granulocytes # (auto) 0.03 K/uL (0.00-0.02); Immature Granulocytes % (auto) 0.3 %; Lymphocytes # (auto) 1.69 K/uL (1.2-3.4); Lymphocytes % (auto) 18.9 %; Mean Corpuscular Hemoglobin 31.2 pg (25-34); Mean Corpuscular Hgb Conc 32.8 g/dL (32-36); Mean Platelet Volume 8.8 fL (7.4-10.4); Monocytes # (auto) 1.19 K/uL (0.11-0.59); Monocytes % (auto) 13.3 %; Neutrophils # (auto) 5.82 K/uL (1.4-6.5); Platelet Count 321 K/uL (130-400); RDW Standard Deviation 45.5 fL (36.4-46.3); Red Blood Count 4.23 M/uL (4.7-6.1); White Blood Count 8.96 K/uL (4.8-10.8)
[2020-08-30] MEDS: PIPERACILLIN/TAZOBACTAM 3.375 GM in DEXTROSE 5% 100 ML IV SCH (07:04)
[2020-08-30 07:09] LABS: BUN Creatinine Ratio 9.1 (10-20); Calcium 8.7 mg/dl (8.5-10.1); Creatinine Clr Calc Pharmacy 76.3 ml/min; Est GFR (African American) 96.7 ml/min; Est GFR (Non-African American) 83.5 ml/min; Potassium 4.1 mmol/L (3.5-5.1)
[2020-08-30] MEDS: CLOBETASOL PROPIONATE 0.05% OINT 15 GM TUBE EXT SCH (07:38)
[2020-08-30] MEDS: LOSARTAN POTASSIUM 50 MG TAB PO SCH (07:40)
[2020-08-30] MEDS: FINASTERIDE 5 MG TAB PO SCH (07:40)
[2020-08-30] MEDS: ATORVASTATIN 40 MG TAB PO SCH (07:40)
[2020-08-30] MEDS: HEPARIN SOD 5,000 UNIT/0.5 ML VIAL SQ SCH (07:40)
--- NOTE | 2020-08-30 10:15 | Urology Progress Note ---
Date of Service August 30, 2020 Assessment & Plan (1) Renal cyst: (2) Incomplete emptying of bladder: Clinically improving Continue antibiotics and supportive care seems most appropriate He reports that he scheduled for repeat imaging this morningI am uncertain if there would be a drastic change in the appearance of his kidney and colon, however I think repeating imaging is reasonable Underlying suspicion is that the colon was likely the primary source of infection patient is subsequently involved throat is in the cystantibiotics still should be sufficient to treat this issue Admission and Anticipated Discharge Date Admission Date: August 28, 2020 Subjective Subjectively has had further improvement overnight Denies any abdominal pain No blood in his urine White blood cell count decreased Creatinine stable Physical Exam Constitutional: well developed and well nourished Respiratory: no respiratory distress Cardiovascular: Extremities: no pedal edema Gastrointestinal (Abdomen): Inspection/Auscultation: abdomen normal to inspection Results & Data ([facility]) Vital Signs (Past 12 Hours) Vital Signs Temp Pulse Pulse Pulse Resp BP Pulse Ox 08/30/20 07:35 36.9 C 56 L 18 155/87 H 95 08/30/20 04:00 36.8 C 72 18 156/82 H 96 08/29/20 23:46 37.0 C 57 L 18 141/97 H 96 08/29/20 23:21 56 L PG Care Time/CCT Total # of Minutes Spent Total Time Spent with Patient: Total time spent is greater than 50% in coordination of care (as documented) at patient's floor/unit and/or counseling patient: Coding Level of Care Code 82862 Subseq Hosp Care Lvl 3 Diagnoses Renal cyst N28.1 Incomplete emptying of bladder R33.9
[2020-08-30] MEDS ORDERED: OPTIRAY 320 100ml IV ONE (10:55)
--- NOTE | 2020-08-30 11:34 | CT Scan Report ---
ABDOMEN AND PELVIS CT WITH IV AND ORAL CONTRAST CT DOSE: 710.40 mGy.cm HISTORY: Follow-up left-sided abscess. Intra abdominal infection TECHNIQUE: Multiaxial CT images of the abdomen and pelvis were performed following the use of intrave nous and oral contrast. A dose lowering technique was utilized adhering to the principles of ALARA. COMPARISON STUDY: Abdomen and pelvis CT 08/28/2020. FINDINGS: Interval decrease in size of the left infrarenal/pericolonic thick-walled abscess. The bruno colonic component of the abscess has almost completely resolved. The left infrarenal component of the abscess has decreased in size. This currently measures 1.9 cm, previously measuring 2.7 cm. The left perinephric/pericolonic inflammatory change is also slightly improved. No pneumoperitoneum or pneuma tosis identified at this time. Slight improvement in the adjacent thickening of the descending colon. Mild dependent changes seen within the lung bases. There is a right total arthroplasty. The liver sp saray adrenal glands and pancreas are unremarkable. Normal right kidney. Cholelithiasis. No gallbladde r wall thickening. No retroperitoneal lymphadenopathy. Mild bladder wall thickening which has slightl y improved. The prostate gland is mildly enlarged. No change in the primarily fat-containing lesion w ithin the left iliopsoas muscle. This contains a few punctate calcifications. Normal caliber abdomina l aorta. The 6 cm left renal cyst remains unchanged. IMPRESSION: 1. Interval improvement in the inflammatory process located between the left kidney and adjacent desc ending colon as described above. Specifically, the abscess has decreased in size. 1-2 month abdomen a nd pelvis CT follow-up recommended to ensure complete resolution of this abnormality. 2. Mild bladder wall thickening is also improved. 3. Additional findings as described above. ACT 112: Negative or not required by law. Electronically signed by: Rajeev Weathers M.D. 08/30/2020 11:33 AM
--- NOTE | 2020-08-30 12:30 | Discharge Summary ---
Date of Service August 30, 2020 Admission HPI Per Admitting Provider 79 YOM with past medical history of: CAD with MAREK-2010 to distal RCA, HTN, HLD, Paroxysmal Afib (on Rivaroxaban), urinary frequency, ball-valve BPH with retention/necrogenic bladder- self-cath once per day, renal cysts(left)- last imaged 2018 via ultrasound, Colonoscopy 2012 with diverticular disease, and right hip replacement. Patient started to have left sided pain about 3 weeks ago while he was on a trip to [place] for work. He originally thought he had food poisoning as the pain was sharp and associated with diarrheal episodes, fevers, and nausea without vomiting. This got better the next day with his diarrhea and nausea, but his left sided pain continued to wax and wain. Today he went to his PCP because the pain was starting to increase on his left side again. He denies any fevers, or chills, has had some increase in his diarrhea. The diarrhea is not bloody or have mucous. He had a CT scan of his abdomen and pelvis performed while in the [facility]. This was noted for an abscess collection abutting the descending colon. Dr. Kearns spoke with Dr. James from GS team. Patient was started on Zosyn IV in the EMD. Blood and Urine cultures were obtained. Patient will be admitted to follow his response to IV antibiotics and infectious process. General Surgery consulted as above. Patient will be kept NPO. He will be admitted to Medical Surgical for his history of PAF. For his Paroxysmal Afib. The patient reports he has had brief episodes and has always been short lived originally diagnosed during acute illness in 2019. His most recent episode in July 2020 was slightly prolonged. This episode was also the same trip to [place] as above, where he had his abdominal pain. The patient has been on Xarelto since 2019. He has had diarrhea while on Metoprolol in the past and decline a CCB when following up with Dr. John earlier this month. Patient had a history of CPAP use in the past, but was remedied by planned weight loss. His Xarelto will be held incase of surgical need. If he returns back to AFIB he has a CHADVASC of 2- will readdress need for anticoagulation at that time. Admission Exam Per Admitting Provider PHYSICAL EXAM: General: awake, alert, no apparent distress Head: Normocephalic, atraumatic ENT: PERRL, EOMI, no pharyngeal exudate, mucous membranes moist Neuro: AAO x 3, speech clear and appropriate, strength intact bilaterally 5/5, sensation intact and equal all extremities and dermatomes, no pronator drift Chest: equal rise and fall of the chest, no accessory muscle use, no heaves or thrills, Clear to auscultation, on room air, Cardiac: Regular rate and rhythm, telemetry reviewed- sinus sylvia to NSR, skin warm dry, cap refill <3 seconds, peripheral pulses, +2 no JVD, no murmur, no edema GI: NABS x 4 quadrants, soft, tender to palpation left lower quad/flank, no rebound, guarding or tenderness : Spontaneously voiding, no pain, no CVA tenderness, denies any change in urine symptoms or urine color/odor Extremities: Normal inspection, no peripheral edema or erythema, calfs nontender to palpation Psych: Normal mood and affect Skin: no rash or erythema Principal Diagnosis Diverticulitis Discharge Exam Constitutional: WEll appearing 79 year old man appearing younger than stated age easily conversive Eyes: PERRLA, EOMMI b/l ENMT: NAD Respiratory: no tachypnea, no increased work of breathing, lung sounds vesicular throughout. Cardiovascular: Regular rate regular rhythm, no m/r/s/g , peripheral pulses strong and equal, no lower limb edema GI: Abdomen soft, mildly tender lateral aspect of left upperquadrant. NO masses. Skin: Warm dry and well perfused Neuro: No focal abnormalities, ambulating well Discharge Data Allergies Allergy/AdvReac Type Severity Reaction Status Date / Time metoprolol AdvReac Intermediate Diarhea Verified 08/28/20 17:55 Consultations 08/28/20 16:33 ED Decision to Admit Stat 08/28/20 22:18 Consult General Surgery Routine 08/29/20 09:11 Consult Urology Routine Ordered Studies 08/30/20 08:00 CT abd pelvis oral and IV con Routine Hospital Course (1) Renal cyst: Mo Jiménez is a 79 year man with a past medical history significant for CAD, BPH who presents with intra-abdominal infection seen on outpatient CT scan Abdominal pain, Abscess Patient appears to have intra-abdominal abscess, vital signs stable, inflam matory markers elevated, white count normal, lactate negative Urine culture positive for E. Coli sensitive to all abx tested except bactrim, blood cultures negative x2 CT scan showing 2.7 cm in largest dimension renal cyst that appears to be infected or surrounded by inflammation/infection questionable colonic primary with infected cyst vs primary renal abscess with colonic wall involvement General Surgery consulted recommended no surgical intervention at present and continued Antibiotics Urology saw patient as well and feel this likely represents a colonic infection immediately adjacent to noninfected pre-existing cyst Received ZOsyn for forty eight hours had improvement on exam, vitals remained WNL Repeat CT obtained showing partial resolution of likely diverticulitis Will continue treatment with ten days of PO cipro and flagyl. Follow up with [facility] he will call to make appointment. Early this week will need CBC and repeat physical exam After complete resolution (1-2 months) WIll need to have Colonoscopy BPH Continue with self catheterization as needed Follow up with urology as an outpatient for possible TURP CAD Stable, MAREK placed several years ago, no concerns at present Atrial Fibrillation Chronic, stable, continue rate control and rivaroxaban for anticoagulation (2) Left lower quadrant abdominal pain: (3) UTI (urinary tract infection): (4) CAD (coronary artery disease): (5) Intra-abdominal abscess: (6) Incomplete emptying of bladder: Total Time Total Time Spent Total Time Spent (In Minutes): 35 Discharge Plan Discharge Items Patient Disposition: Home - Self-Care Reason For Visit: DIVERTICULAR ABSCESS Discharge Diagnosis: Diverticular abscess Activity: Per Instructions section Non-emergency contact: Primary Care Provider Call non-emergency contact if: you have any medication questions, your symptoms worsen and your temperature is above 101 Follow-up/Referrals: Marah Helm MD [Primary Care Provider] - Diet: Heart Healthy Addtl Attending Provider Instructions: Mr. Jiménez, It was a pleasure taking care of you for your intra abdominal infection, we saw inflammation around the colon and kidneys including around one cyst of your left kidney and in between diverticuli in your colon. We believe this is likely a case of diverticulitis and we initially put you on IV antibiotics and rechecked your abdomen with a CT scan and saw improvement and not progression of this inflammatory process. We will send you home on two oral antibiotics to further treat this infection and you will need to follow up with someone from our [facility] office for follow up to resolution. You will also need to get a colonoscopy of the area after symptoms have totally resolved, approximately one month from now to make sure there is no suspicious masses or other abnormalities that might have caused this presentation. Please make an appointment to our office at your soonest convenience to schedule that follow up appointment. Pending Studies at Discharge: No Stand-Alone Forms: [facility], Smoking Cessation Medications and DC Order Prescriptions: New ciprofloxacin HCl 500 mg tablet 500 mg PO BID 8 Days Qty: 16 RF: 0 metronidazole 500 mg tablet 500 mg PO Q8H 8 Days Qty: 24 RF: 0 Continued atorvastatin 80 mg tablet 80 mg PO QAM Qty: 90 RF: 3 Xarelto 20 mg tablet 20 mg PO DAILY Qty: 90 RF: 3 tamsulosin 0.4 mg capsule 0.4 mg PO HS Qty: 90 RF: 1 finasteride 5 mg tablet 5 mg PO DAILY Qty: 90 RF: 1 losartan 50 mg tablet 50 mg PO DAILY Qty: 90 RF: 3 clobetasol 0.05 % cream 1 applic topical BID 14 Days Qty: 30 RF: 1 aspirin [Aspirin Low Dose] 81 mg tablet,delayed release (DR/EC) 81 mg PO .COMPLEX RF: 0 coenzyme Q10 100 mg Capsule 100 mg PO QAM RF: 0 methenamine hippurate 1 gram tablet 1 g PO DAILY RF: 0 Discharge Orders: Discharge Order (Routine); Ordered 08/30/20 Ordered By: Mian Arana Admission Data Admit Date/Time: 08/28/20 18:35 Attending Provider: Lorenzo Gordon Admit Provider: Osvaldo Laguna Primary Care Provider: Marah Helm Other Providers: Felice Wiggins Matthew D. ; Pedro Leiva Other Interventions: Discharge Summary Assessment (RN) Last Done: 08/30/20 12:57 Supervising Physician Co-Signing Physician Notes Patient seen and examined independently of PGY 3 Dr. Arana. Agree with history, exam findings, assessment and plan as outlined. In brief, Mr. Jiménez is a 79-year-old male with history of paroxysmal A. fib ant icoagulated with Xarelto, CAD and BPH admitted with possible intra-abdominal abscess versus infected cyst in the left lower pole of the kidney. This morning, he reports that his pain is better. He has not had any nausea, vomiting or diarrhea. No fevers overnight. Did not some blood in the stool today, but has not had further episodes of bleeding since. 1. Abdominal abscess possibly secondary to diverticulitis. Repeat CT Abd/Pelvis with interval improvement. Discharge with cipro and flagyl. Blood cultures are negative Tolerating diet Appreciate general surgery and urology recommendations. 2. Paroxysmal A. fib. Normal sinus rhythm now. 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 We can restart his home Xarelto. 3. BPH. Continue with self-catheterization. His UA is abnormal but difficult to interpret in the setting of self-catheterization. Dispo: discharge home today. I personally spent 25 minutes discharge planning for this patient. Resident Activity Tracking Resident Involvement: Resident Care Provided Care Provided: Adult Hospital Medicine
[2020-08-31] MEDS ORDERED: ASPIRIN 81 MG ECTAB PO SCH (09:00)
== END 2020-08-30 13:30 | disposition home or self-care (01) | DRG 392 ==
LOC: ED 15:21 → 2N 18:35 → SUATTDRO 18:35 → 2N 20:41

== ENCOUNTER 2022-01-19 07:24 | Observation (INO) ==
--- NOTE | 2021-11-11 15:14 | PAT Medication Instructions ---
Medication Instructions Date of Service November 11, 2021 Home Medications Medication Instructions Recorded losartan 50 mg tablet 50 mg PO QAM #90 tabs 03/09/21 methenamine hippurate 1 gram tablet 1 g PO QAM #90 tabs 03/09/21 atorvastatin 80 mg tablet 80 mg PO QAM #90 tabs 03/10/21 coenzyme Q10 100 mg capsule 100 mg PO QAM rivaroxaban 20 mg tablet (Xarelto) 20 mg PO QAM losartan 50 mg tablet 50 mg PO QAM methenamine hippurate 1 gram tablet 1 g PO QAM atorvastatin 80 mg tablet 80 mg PO QAM finasteride 5 mg tablet 5 mg PO QAM tamsulosin 0.4 mg capsule 0.4 mg PO QAM ASK your prescriber and surgeon rivaroxaban 20 mg tablet (Xarelto) 20 mg PO QAM STOP taking 2 weeks before surgery coenzyme Q10 100 mg capsule 100 mg PO QAM DO NOT take the morning of surgery losartan 50 mg tablet 50 mg PO QAM methenamine hippurate 1 gram tablet 1 g PO QAM Take morning of surgery With a small sip of water, OTHERWISE NOTHING TO EAT OR DRINK AFTER MIDNIGHT: atorvastatin 80 mg tablet 80 mg PO QAM finasteride 5 mg tablet 5 mg PO QAM tamsulosin 0.4 mg capsule 0.4 mg PO QAM Other Notes If you have any questions please call us at [phone] or [phone] or [phone] or [phone]
--- NOTE | 2021-12-06 13:23 | Anesthesiology Consultation ---
Date of Service December 06, 2021 Assessment & Plan (1) Encounter for pre-operative examination: - Awaiting surgeon-ordered PCP (done 12/06; Dr. Marah Helm) and cardiology (scheduled 12/08; TAMMY) preop evaluations. - COVID screening: Per assessment on 12/06: No known COVID-19 positive contacts (since 11/12- family member at birthday constitution party) or current COVID-19 related symptoms. Travel screen negative. Patient vaccinated. At surgeon discretion if preop Covid testing being done. - Xarelto instructions: per surgeon/prescriber - Outpatient joint assessment: Pt currently scheduled for inpatient pathway. If surgeon requests review for outpatient joint pathway, patient is not recommended candidate for outpatient joint program from my perspective. Chart Review Chart Review: Patient seen in Pre Admission Testing Teaching & Discussion Pre-Anesthesia Teaching/Discussion Notes: Instructed NPO after midnight before surgery,except medications with 15 cc of water. Medication instructions provided according to the PAT guidelines. History Surgery Operation Date: 12/22/21 09:05 Proposed Procedures p Right Total Shoulder Arthroplasty, Subacromial Decompression, Distal Clavicle Excision - Panfilo Ross MD Height/Weight Height: 5 ft 8 in Weight: 94.8 kg Allergies Allergy/AdvReac Type Severity Reaction Status Date / Time metoprolol AdvReac Intermediate Diarhea Verified 11/11/21 11:22 Medications Home Medications Medication Instructions Recorded Confirmed Last Taken coenzyme Q10 100 mg capsule 100 mg PO QAM 10/17/18 11/11/21 10/13/20 rivaroxaban 20 mg tablet (Xarelto) 20 mg PO QAM 10/13/20 11/11/21 10/11/20 losartan 50 mg tablet 50 mg PO QAM #90 tabs 03/09/21 11/11/21 Unknown methenamine hippurate 1 gram tablet 1 g PO QAM #90 tabs 03/09/21 11/11/21 Unknown atorvastatin 80 mg tablet 80 mg PO QAM #90 tabs 03/10/21 11/11/21 Unknown finasteride 5 mg tablet 5 mg PO QAM 11/11/21 11/11/21 Unknown tamsulosin 0.4 mg capsule 0.4 mg PO QAM 11/11/21 11/11/21 Unknown Past Medical History Medical History Benign prostatic hyperplasia CAD (coronary artery disease) 2009 s/p MAREK to dRCA HLD (hyperlipidemia) HTN (hypertension) Hx of myocardial infarction 2009 s/p MAREK to dRCA Hyperlipidemia Hypertension Intra-abdominal abscess monitoring -- no treatment, no issues Osteoarthritis PAF (paroxysmal atrial fibrillation) Follows with Dr. John--on xarelto daily Sleep apnea No device, "does not need" device since weight loss per pt, no formal retesting Exercise / Class Metabolic Activity II 4-5 Yardwork/Stairs/Walk up hill Past Family History Family History Other No family history of adverse response to anesthesia No significant family history Past Surgical History Surgical History H/O colonoscopy History of total right hip arthroplasty Hx of cardiac cath 2009 > stent Hx of cataract surgery R/L Hx of local excision of skin lesion 10/2018 Past Anesthesia History No Hx of Anesthesia Complications and No Family Hx of Anesthesia Complications History of PONV No Hx of PONV and No Hx of Motion Sickness Social History Smoking Status: Former smoker tobacco type: cigarettes Do You Dip or Chew Tobacco: No Smoking End Date: Quit 1959 Hx Alcohol Use: Yes Alcohol type: wine alcohol intake frequency: 0-2 drinks per day (2 glasses wine/day) Hx Substance Use: No substance use type: does not use Review of Systems Patient denies chest pain, shortness of breath, dyspnea on exertion, fever, c hills, cough, wheezing, palpitations. Physical Exam Vital Signs VITALS BP 157/80 P 55 TEMP 98.3 SP02 96%RA RESP 16 PHYSICAL Full cervical extension range of motion. Full TMJ range of motion. TMD 3 finger breaths Mallampati Score 3 Dentition: intact Lungs: clear throughout to auscultation Cardiac: regular rate and rhythm, no murmurs noted Spine: normal Carotid arteries: negative bruit Extremities: no edema Lab Results Anesthesia Preop Results Results Anesthesia Widget: WBC 8.30 K/ul (4.8-10.8) 12/06/21 Hgb 15.4 g/dl (14.0-18.0) 12/06/21 Hct 46.8 % (40.1-51.0) 12/06/21 Plt 192 K/uL (130-400) 12/06/21 Na 144 mmol/L (136-145) 12/06/21 K 4.6 mmol/L (3.5-5.1) 12/06/21 Cl 109 mmol/L (98-107) H 12/06/21 CO2 30 mmol/L (21-32) 12/06/21 BUN 25 mg/dl (6-23) H 12/06/21 Creat 1.01 mg/dl (0.6-1.4) 12/06/21 Glucose Level 95 mg/dl (70-99(Fasting)) 12/06/21 PT 12.5 Seconds (9.0-12.0) H 12/06/21 PTT 31.6 Seconds (21.0-31.0) H 12/06/21 INR 1.2 (0.9-1.1) H 12/06/21 HA1c 5.7 % (4.5-5.6) H 12/06/21 Urine Color Yellow 12/06/21 Urine Appearance Clear (Clear) 12/06/21 Urine pH 5.5 (4.5-7.5) 12/06/21 Urine Specific [place] 1.021 (1.000-1.030) 12/06/21 Urine Protein Negative (Negative) 12/06/21 Urine Glucose (UA) Negative (Negative) 12/06/21 Urine Ketones Negative (Negative) 12/06/21 Urine Blood 1+ (Negative) H 12/06/21 Urine Nitrite Negative (Negative) 12/06/21 Urine Bilirubin Negative (Negative) 12/06/21 Urine Urobilinogen Negative (Negative) 12/06/21 Urine Leukocyte Esterase Negative (Negative) 12/06/21 Urine WBC (Auto) 5-10 /hpf (0-5) H 12/06/21 Urine RBC (Auto) 0-4 /hpf (0-4) 12/06/21 Urine Hyaline Casts (Auto) 1-5 /lpf (0-5) 12/06/21 Urine Epithelial Cells (Auto) >30 /lpf (0-5) H 12/06/21 Urine Bacteria (Auto) Negative (Negative) 12/06/21 Urine Amorphous Sediment Present (None Prsent) A 12/06/21 Urine Yeast Not Reportable 12/06/21 Blood Type O Positive 12/06/21 Antibody Screen NEGATIVE 12/06/21 Testing Laboratory Results Mildly elevated coags- pt on Xarelto* Electrocardiogram Date: 12/06/21 SB at 57bpm. Cannot r/o inferior infarct, age undetermined. No significant change compared to 08/29/20 per double end tenoner setter comparison. Chest X-Ray Date: 12/06/21 FINDINGS: Cardiomediastinal and hilar silhouettes are within normal limits. No pneumothorax, pleural effusion, airspace consolidation or overt pulmonary edema. Mild subsegmental linear bibasilar atelectasis versus scarring. Hyperinflation with diaphragmatic flattening. Degenerative changes of the shoulders and spine. IMPRESSION: No acute process. Echocardiogram Date: 10/18/18 EF 55-60%. No regional motion abnormality. Mild concentric LVH. No significant valvular disease. COVID-19 Risk Screen Screening Information COVID-19 Screen Date: 12/06/21 Exposure 21 Days Family/Household +COVID Last 21 Days: No Exposure 10 Days Any COVID Exposure Last 10 Days: No Symptoms Last 10 Days Experienced COVID Sx Last 10 Days: No + COVID 0-90 Days COVID + in Last 0-90 Days: No
--- NOTE | 2021-12-26 09:00 | History & Physical Report ---
Date of Service December 26, 2021 Assessment & Plan (1) Primary osteoarthritis, right shoulder: Plan: Treatment options discussed with the patient. He has failed conservative measures. He would like to proceed with surgical intervention. Risks, benefits and alternatives to surgery including but not limited to infection, DVT, pain, stiffness, need for revision surgery, damage to blood vessels, damage to nerves, PE, , were discussed with the patient and they wish to proceed. Plan on right total shoulder arthroplasty scheduled for January 19 at [facility] with Dr. Ross. We will plan on outpatient PT postop. We will resume home Xarelto postop. All questions answered. Follow-up postop. History of Present Illness Chief Complaint: Right shoulder pain Primary Care Provider: Marah Helm MD 81-year-old male with past medical history significant hypertension, high cholesterol, BPH, proximal A. fib, CAD, history of NV who presents with ongoing right shoulder pain. Pain is interfering with his daily activities. He has failed conservative measures and would like to proceed with surgical invention. Patient denies headaches, sweats, fevers, chills, double vision, blurred vision, cough, sore throat, dysphagia, chest pain, sob, wheezing, n/v/d/c, numbness, tingling, fatigue, urinary symptoms, mood disorders. ROS positive for right shoulder pain and stiffness. Allergies Allergy/AdvReac Type Severity Reaction Status Date / Time metoprolol AdvReac Intermediate Diarhea Verified 12/08/21 10:25 Home Medications Medication Instructions Recorded Confirmed Type coenzyme Q10 100 mg capsule 100 mg PO QAM 10/17/18 12/08/21 History rivaroxaban 20 mg tablet (Xarelto) 20 mg PO QAM 10/13/20 12/08/21 History losartan 50 mg tablet 50 mg PO QAM #90 tabs 03/09/21 12/08/21 Rx methenamine hippurate 1 gram tablet 1 g PO QAM #90 tabs 03/09/21 12/08/21 Rx finasteride 5 mg tablet 5 mg PO QAM 11/11/21 12/08/21 History tamsulosin 0.4 mg capsule 0.4 mg PO QAM 11/11/21 12/08/21 History aspirin 81 mg chewable tablet 81 mg PO DAILY #30 tabs 12/08/21 12/08/21 Rx atorvastatin 80 mg tablet 80 mg PO QAM #90 tabs 12/13/21 Rx Past Med/Surg History Medical History Benign prostatic hyperplasia CAD (coronary artery disease) 2009 s/p MAREK to dRCA HLD (hyperlipidemia) HTN (hypertension) Hx of myocardial infarction 2009 s/p MAREK to dRCA Hyperlipidemia Hypertension Intra-abdominal abscess monitoring -- no treatment, no issues Osteoarthritis PAF (paroxysmal atrial fibrillation) Follows with Dr. John--on xarelto daily Sleep apnea No device, "does not need" device since weight loss per pt, no formal retesting Surgical History H/O colonoscopy History of total right hip arthroplasty Hx of cardiac cath 2009 > stent Hx of cataract surgery R/L Hx of local excision of skin lesion 10/2018 Family History Other No family history of adverse response to anesthesia No significant family history Social History (Reviewed 06/30/21 @ 09:24 by Bill John Jr, MD, [facility]) Smoking Status: Former smoker Second Hand Exposure: No; Hx Alcohol Use: Yes Alcohol type: wine Hx Substance Use: No Preferred Language: Somali Communication Ability: Effective Visual Impairment: No Limitations 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 Required: No Beliefs That Will Affect Care: None marital status: Current Living Situation: Spouse current occupational status: retired Feels Safe at Home: Yes Assistive Devices: Glasses Review of Systems All systems reviewed & are unremarkable except as noted in HPI & below Physical Exam Constitutional: well developed and well nourished; no acute distress Eyes: PERRL, conjunctivae normal, anicteric sclerae ENMT: external ear and nose normal, oropharynx normal Neck: trachea midline, no thyromegaly Respiratory: normal respiratory effort, lungs clear to auscultation Cardiovascular: RRR, no murmur, no edema Musculoskeletal: Right shoulder: Diffuse tenderness. Crepitation with range of motion. There is painful range of motion. Negative impingement signs. External rotation to 45 degrees, forward flexion of 120 degrees, abduction to 90 degrees. Skin: no rashes, warm and dry Neurologic: patellar DTR's 2+ bilat, sensation intact Psychiatric: A+Ox3, euthymic affect Results & Data ([place]) Diagnostic Findings Right shoulder radiographs demonstrate end-stage osteoarthritis right shoulder with [id number] glenohumeral joint. There is periarticular osteophyte formation. He has spurring superior aspect of his humeral head as well. MRI demonstrates intact rotator cuff.
[~2022-01-19 07:24] MED LIST changes: +ACETAMINOPHEN 500 MG TAB PO SCH; -ASPI81TA28 PO; -ATOR-26 PO; +BUPIVACAINE 0.5 % 5 MG/1 ML PF 10ML VIAL ONE; -COEN75CA PO; +CeleBREX 200 MG CAP PO SCH; +FAMOTIDINE 20 MG TAB PO SCH; +GABAPENTIN 300 MG CAP PO SCH; -HYDR25TA4 PO; -LOSA1TAB PO; +LR 15ML/HR IV SCH; +METOCLOPRAMIDE HCL 10 MG TABLET PO SCH; -NEBI10TA2 PO; +TRANEXAMIC ACID 1,000 MG **IV Intra-op IV SCH; +TRANEXAMIC ACID 1,000 MG **IV Pre-op IV SCH; +ceFAZolin 2000MG 2,000 MG/15 ML SYR IV SCH; +dexAMETHasone 4 MG TAB PO SCH
[2022-01-19] MEDS ORDERED: ONDANSETRON INJ 2 MG/ML 2 ML VIAL ONE (07:35)
[2022-01-19] MEDS ORDERED: LIDOCAINE 2% 20 MG/ML 5 ML SYR IV ONE (07:35)
[2022-01-19] MEDS ORDERED: PROPOFOL IV EMULSION 10 MG/ML 20 ML VIAL IV ONE (07:35)
[2022-01-19] MEDS ORDERED: EpINEphrine HCL INJ 1 MG/ML 1ML SYRINGE ONE ×2 (07:39→10:53)
--- NOTE | 2022-01-19 07:51 | History & Physical Bridge Note ---
Date of Service January 19, 2022 History & Physical Bridge Note I have examined the patient, reviewed the History & Physical and in the interval since the performance of the History & Physical I have noted the following changes of clinical significance: no changes noted
[2022-01-19] MEDS ORDERED: ATROPINE SULFATE 0.1 MG/ML 10ML SYR IV PRN (08:26)
[2022-01-19] MEDS ORDERED: ONDANSETRON INJ 2 MG/ML 2 ML VIAL IV PRN ×2 (08:26→14:12)
[2022-01-19] MEDS ORDERED: PROMETHAZINE HCL 12.5 MG in SODIUM CHLORIDE 0.9% 50 ML IV PRN (08:26)
[2022-01-19] MEDS ORDERED: HYDROmorphone INJ 2 MG/ML SYR/VIAL IV PRN (08:26)
[2022-01-19] MEDS ORDERED: fentaNYL citrate 100 MCG/2 ML VIAL IV PRN (08:26)
[2022-01-19] MEDS ORDERED: ePHEDrine sulfate 50 MG/ML AMP IV PRN (08:26)
[2022-01-19] MEDS ORDERED: fentaNYL citrate 100 MCG/2 ML VIAL ONE (08:30)
[2022-01-19] MEDS ORDERED: MIDAZOLAM HCL 1 MG/ML 2ML VIAL ONE (08:30)
[2022-01-19] MEDS ORDERED: ROCURONIUM BROMIDE 10 MG/ML 5 ML VIAL IV ONE ×6 (09:36→11:02)
[2022-01-19] MEDS ORDERED: DEXAMETHASONE SOD INJ 4 MG/ML VIAL ONE (09:36)
[2022-01-19] MEDS ORDERED: GLYCOPYRROLATE 0.2 MG/ML VIAL ONE (11:05)
[2022-01-19] MEDS ORDERED: NEOSTIGMINE METHYLSULFATE 1 MG/ML 10ML VIAL ONE (11:05)
--- NOTE | 2022-01-19 12:56 | Operative Report ---
Post Operative Report Pre & Post Diagnosis Operation Date: 01/19/22 09:35 Pre-Op Diagnosis: Osteoarthritis Right Glenohumeral Joint, AC joint osteoarthritis, subacromial impingement, biceps tendinitis Post-Op Diagnosis: Osteoarthritis Right Glenohumeral Joint, AC joint osteoarthritis, subacromial impingement, biceps tendinitis and tendinopathy with multiple loose bodies biceps tendon sheath. I identified the patient and participated in the time-out.: Yes Procedure Operation Date: 01/19/22 09:35 Actual Procedures p Right stemless OVO motion total Shoulder Arthroplasty, biceps tenodesis, subacromial Decompression, Distal Clavicle Excision, tenosynovectomy biceps tendon with removal loose bodies biceps tendon sheath. (Right) - Panfilo Ross MD Surgeon Panfilo Ross MD City Dispatch Supervisor Wilfredo YAN Estimated Blood Loss 40 Findings Consistent with Post-Op Diagnosis Specimens None Drains 2 Hemovac Anesthesia Type General Regional Complications none Disposition Disposition: Recovery Room Indications 81-year-old active male still exercises heavily and lifts weights lives an active lifestyle. Radiographs demonstrate [id number] with concentric type A wear with type III acromion subacromial judgment hypertrophic AC joint osteoarthritis and some mild rotator cuff tendinopathy intact rotator cuff. Description of Procedure Patient was placed placed under regional block and general anesthetic. The right upper extremity had a towel roll placed on the medial border of the scapula and translated to the side of the bed so it could be manipulated off of the bed as necessary. A foam headrest was placed and protective eyewear was placed. Lower extremities were well-padded. Patient was positioned in a beachchair position approximately 40 degrees. Shoulder exam demonstrated 140 degrees flexion, 90 degrees abduction and 30 degrees external rotation, [id number]-[id number] crepitation, hypertrophy AC joint. The right upper extremity was prepped and draped in sterile fashion. A deltopectoral approach was performed with a longitudinal incision in a deltopectoral interval. The skin was incised sharply and the subcutaneous flaps were elevated. The cephalic vein was dissected out and retracted laterally with the deltoid. The clavipectoral fascia was divided at the lateral margin of the conjoined tendon and extended up to the CA ligament. A self-retaining retractor was placed. Biceps findings demonstrated marked tenosynovitis and multiple loose bodies in the biceps tendon sheath. The multiple loose bodies were resected a tenosynovectomy was performed and then theBiceps tendon was tenodesed to the pectoralis with [id number] #2 FiberWire sutures. Proximal biceps was resected.The circumflex vessels were tied off with silk ties and divided laterally. The subscapularis muscle fibers were at the level of the circumflex vessels dissection was taken down to the capsule and a Kitner elevator was used to release the inferior fibers of the capsule protecting the axillary nerve inferiorly. A blunt Hohmann retractors were placed between the inferior located axillary nerve and the capsule. This was verified with a tug test. The rotator was opened up and extended down to the glenoid. The subscapularis was taken down with a transtendinous incision leaving a cuff of tissue for repair on the lesser tuberosity. The incision was carried through the subscapularis to the capsule and then subperiosteally along the inferior capsule exposing the inferior humeral osteophytes. These demonstrated very large osteophytes from anterior to anterior to posterior and also large superior osteophytes.. The osteophytes were resected with an artist chisel and rongeur. The humeral head findings demonstrated eburnated bone with exposed bone centrally. After the osteophytes were resected humeral head is retracted posterior to the glenoid with a Fukuda retractor. The glenoid findings demonstrated eburnated bone as well with some anterior and inferior osteophytes with a calcification inferior labrum. The intra-articular biceps was widened axis with chronic tendinopathy. The labrum was resected and the biceps tendon resected. A 360 degree release of the subscapularis was performed. Appropriate releases were performed about the glenoid. Subperiosteal release with electrocautery on the glenoid anterior and inferior and also utilizing a small Sagastume elevator to perform that release. Upon completion of the releases the humeral head was reexposed with retractors and humeral head was sized for a size 56 x 52 Arthrosurface OVO motion humeral head. The central guidepin was placed. The threaded stop for the reamer was drilled into the head. This was placed at the appropriate depth. The head reamer was used. All debris was irrigated out of the joint. The flat head resection reamer was used. The remaining section of bone was removed with a saw. The humerus was then retracted posteriorly again with the Fukuda retractor posterior to the glenoid. The guide for the glenoid component was placed and the guide pin was advanced to the appropriate depth. Glenoid reamers were utilized. The depth gauge verified the depth of the reaming. The snowman type glenoid component was utilized. the drill holes for the cement fixation posts were placed. Trial component was placed at satisfactory position and depth. Trial was removed and the glenoid reamed area was prepared for cementing with several drill holes placed around the reamed area to accept cement. After further irrigation the reamed area was packed with epinephrine soaked tampon sponges. The Refobacin cement was vacuum mixed. The cement was injected into the glenoid and compressed with a finger compression device. More cement was placed on the back of the glenoid component and it was inserted into the reamed area in appropriate position with the suction device that held onto the component. When the component was appropriate seating position the suction was removed as well as a suction device and direct pressure was placed on of the component and excess cement was cleared and the component was held in position until the cement fully cured. Attention was taken back to the humerus. The humeral head guide was placed onto the humeral head in the appropriate position. The guidepin was readvanced in position. The 12 mm tapered post was inserted to appropriate depth with excellent fixation. At this time 3 drill holes were made along the lateral surface of the lesser tuberosity spanning the distance of the subscapularis attachment and 3 transosseous #5 FiberWire sutures were placed for repair of the subscapularis. After copious irrigation the Hearn taper of the tapered post was dried and then the humeral component size 56 x 22 elbow motion head was impacted onto the taper post with stable fixation. This was assessed with a Sagastume elevator to be stable. This was then reduced to the glenoid and range of motion and stability was assessed. Attention was then taken to the decompression and distal clavicle excision. A transverse oblique incision was made over the AC joint anterior acromion. The skin was incised sharply and subcu flaps were elevated off the fascia. There were large bone spurs and heterotopic bone in the superior AC joint capsule which was resected. There was an oblique AC joint. Some this obliquity was corrected by making more of a perpendicular cut resecting the AC facet on the acromion and the distal clavicle for that there was a centimeter resection combined. An acromioplasty was performed using oscillating saw to remove the hook undersurface of the anterior acromion making a flat type I shape to the acromion and the TM and rasp was used to smooth out that resection and all acromial facet spurs were resected on the undersurface of the acromion. A smooth surface was obtained and there was no impingement. After irrigation a #1 Vicryl ripstop suture was placed into the anterior deltoid full length of the incision. Then the deltoid trapezius fascia was repaired including transosseous sutures to the anterior deltoid using interrupted [id number] #2 FiberWire sutures with an excellent repair. After copious irrigation the subscapularis was repaired with the #5 FiberWire sutures using Kalia-Brandon suture technique and lateral row soft tissue repair with #2 FiberWire [id number] sutures and the rotator interval was closed in maximal external rotation with interrupted #2 FiberWire sutures. Range of motion was assessed demonstrating 140 degrees forward flexion 90 degrees abduction and 60 degrees of external rotation without any tension on subscap repair. The split in the pectoralis tendon was repaired with [id number] #2 FiberWire sutures passing sutures through the biceps tendon reinforcing the tenodesis. The wound was copiously irrigated and 2 Hemovac drains were placed brought out laterally. The deltopectoral interval was repaired with [id number] #1 Vicryl sutures and the subcutaneous tissues were closed into 2-0 Vicryl sutures and skin closed with sherri. The acromioplasty AC joint incision was then irrigated and the subcutaneous tissues were closed into 2-0 Vicryl sutures, were closed with sherri as well. Sterile dressings were applied to both incisions and a shoulder immobilizer. The patient tolerated the procedure well. Wilfredo Izquierdo PA my physician retail assistant manager to space credit assistant and was integral part in all aspects of the procedure. He assisted in the procedure with arm positioning soft tissue retraction instrument management suture management and performed the subcutaneous and skin closure dressings and shoulder immobilizer application and will participate in the postop care the patient. I attest to the content of the Intraoperative Record and any orders documented therein. Any exceptions are noted below.
--- NOTE | 2022-01-19 13:42 | XRay Report ---
RIGHT SHOULDER 2 VIEWS CLINICAL HISTORY: Postoperative examination. FINDINGS: 2 portable views of the right shoulder are obtained. The skeletal structures are osteopenic . A right shoulder arthroplasty is in near anatomic alignment. No acute fracture seen. Skin clips, a surgical drain, subcutaneous gas, and soft tissue swelling overlying the right shoulder are expected postoperative findings. The right lung parenchyma is clear as imaged noting basilar atelectasis. IMPRESSION: Expected postoperative findings status post right shoulder arthroplasty. No acute fractur e is seen. Electronically signed by: Gonzalez Swan M.D. 01/19/2022 1:40 PM
--- NOTE | 2022-01-19 13:53 | Anesthesiology Progress Note ---
Date of Service January 19, 2022 Anesthesia Post Procedure Vital Signs Vital Signs: Temp Pulse Pulse Resp BP Pulse Ox O2 Del Method 01/19/22 13:40 60 17 126/70 93 Room Air 01/19/22 13:30 71 16 136/78 93 Room Air 01/19/22 13:20 86 19 112/71 97 Oxymask 01/19/22 13:10 87 17 155/89 H 94 Oxymask 01/19/22 13:01 97.0 F L 85 19 154/86 H 96 Oxymask 01/19/22 07:56 98.6 F 61 20 155/101 H 97 Room Air O2 Flow Rate 01/19/22 13:40 01/19/22 13:30 01/19/22 13:20 6 01/19/22 13:10 6 01/19/22 13:01 6 01/19/22 07:56 Transfer of Care Handoff Completed per policy Notes Mental Status: alert / awake / arousable and participated in evaluation Patient Amnestic to Procedure: Yes Nausea / Vomiting: adequately controlled Pain: adequately controlled Airway Patency, RR, SpO2: stable & adequate BP & HR: stable & adequate Hydration State: stable & adequate Anesthetic Complications: no major complications apparent and Pt Satisfied with anesthetic care Notes: The patient was noted to have EKG changes intraoperatively. There appeared to be some ST depression and a bundle branch block. A 12 lead EKG was ordered in PACU, which was fairly unremarkable compared to his previous EKG. I spoke with the patient, and he denied any CP or SOB. His vital signs were stable. I spoke with Dr. Bishop and Dr. Mcconnell in regards to the patient. I recommended the patient go to med/telemetry for further observation. The patient was otherwise stable to be discharged from PACU.
[2022-01-19] MEDS ORDERED: bisacodyL 10 MG SUPP PR PRN (14:12)
[2022-01-19] MEDS ORDERED: NALOXONE HCL 0.4 MG/1 ML VIAL/CARP IV PRN (14:12)
[2022-01-19] MEDS ORDERED: MAGNESIUM HYDROXIDE SUSP 30 ML UDC PO PRN (14:12)
[2022-01-19] MEDS ORDERED: HYDROmorphone INJ 0.5 MG/0.5 ML SYR IV PRN (14:12)
[2022-01-19] MEDS ORDERED: oxyCODONE HCL IR 5 MG TAB (IMMEDIATE RELEASE) PO PRN (14:12)
[2022-01-19] MEDS ORDERED: METOCLOPRAMIDE HCL INJ 5 MG/ML 2 ML VIAL IV PRN (14:12)
--- NOTE | 2022-01-19 14:26 | Cardiology Consultation ---
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 -recommend observation in the PCU overnight. -recommend trending high sensitivity troponin. -EKG in the a.m. -I did discuss the above with his via telephone. (2) Coronary artery disease: -s/p RCA MAREK for inferoposterior CT, June 2009. -continue aspirin, losartan, and atorvastatin. (3) PAF (paroxysmal atrial fibrillation): -currently in normal sinus rhythm. -resume Xarelto when able. (4) Hypertension: -adequate control on current medications. (5) Hyperlipidemia: -continue atorvastatin. History of Present Illness Attending Physician: Panfilo Ross MD History of Present Illness Mr. Jiménez is an 81-year-old male who underwent a right total shoulder replacement earlier today. During the procedure, the patient apparently had some ST segment changes, therefore, this consultation was ordered. Note, patient typically follows with Dr. John in the outpatient setting. The patient was seen as a preoperative evaluation by Dr. John on January 03. At that time, the patient was doing well. He was exercising on a stationary bicycle for 30 minutes at least 3 days each week. He was also performing 30 minutes of resistance type exercises. At no time has he experienced exertional angina pectoris or limiting dyspnea. He further denies syncope, presyncope, PND, orthopnea, lower extremity edema, and claudication. The patient was seen in the PACU by the request of Dr. Bullock. At the time of my evaluation, patient was hemodynamically stable and resting comfortably in bed. He had no complaints of chest pain, dyspnea, or palpitations. The patient does carry a history of coronary artery disease having suffered an infero posterior CT in June 2009. He had a MAREK placed in the distal RCA at that time. Other disease included a 40% proximal LAD and 50% mid obtuse marginal branch stenosis. He also carries a history of paroxysmal atrial fibrillation that was diagnosed in October 2018. He has tolerating rate control and long-term anticoagulation without difficulty. Past medical and surgical history 1. Coronary artery disease-see above 2. Distal RCA MAREK-June 2009 3. Hypertension 4. Hypercholesterolemia 5. Paroxysmal atrial fibrillation 6. Obstructive sleep apnea 7. DJD 8. BPH 9. Bilateral intra-ocular lens implants 10. Left THR-November 2017 her Social history and lives with his No tobacco Occasional alcohol Family history Noncontributory Review of systems A 10 review systems was undertaken and negative except that described above. Allergies Allergy/AdvReac Type Severity Reaction Status Date / Time metoprolol AdvReac Intermediate Diarhea Verified 01/19/22 07:48 Home Medications Medication Instructions Recorded Confirmed Type coenzyme Q10 100 mg capsule 100 mg PO QAM 10/17/18 01/19/22 History losartan 50 mg tablet 50 mg PO QAM #90 tabs 03/09/21 01/19/22 Rx methenamine hippurate 1 gram tablet 1 g PO QAM #90 tabs 03/09/21 01/19/22 Rx finasteride 5 mg tablet 5 mg PO QAM 11/11/21 01/19/22 History tamsulosin 0.4 mg capsule 0.4 mg PO QAM 11/11/21 01/19/22 History atorvastatin 80 mg tablet 80 mg PO QAM #90 tabs 12/13/21 01/19/22 Rx rivaroxaban 20 mg tablet (Xarelto) 20 mg PO QAM #90 tabs 12/27/21 01/19/22 Rx aspirin 81 mg chewable tablet 81 mg PO QAM 01/13/22 01/19/22 History Patient History Medical History (Updated 01/19/22 @ 14:19 by Luiz Mcconnell MD) Benign prostatic hyperplasia CAD (coronary artery disease) 2009 s/p MAREK to dRCA History of COVID-19 12/17/21: sore throat, cough, fatigue, weakness. doing well currently, does have a lingering cough HLD (hyperlipidemia) HTN (hypertension) Hx of myocardial infarction 2009 s/p MAREK to dRCA Hyperlipidemia Hypertension Intra-abdominal abscess monitoring -- no treatment, no issues Osteoarthritis PAF (paroxysmal atrial fibrillation) Follows with Dr. John--on xarelto daily Sleep apnea No device, "does not need" device since weight loss per pt, no formal retesting Surgical History H/O colonoscopy History of total right hip arthroplasty Hx of cardiac cath 2009 > stent Hx of cataract surgery R/L Hx of local excision of skin lesion 10/2018 Family History Other No family history of adverse response to anesthesia No significant family history Social History Smoking Status: Former smoker Smoking End Date: Quit 1959; Second Hand Exposure: No; Do You Dip or Chew Tobacco: No; Tobacco Cessation Education Requested by Patient: No Hx Alcohol Use: Yes Alcohol type: wine Hx Substance Use: No Preferred Language: Syriac Communication Ability: Effective Visual Impairment: No Limitations Tax Collector Required: No Beliefs That Will Affect Care: None marital status: Current Living Situation: Spouse current occupational status: retired Other Information That Helps Us Care for You: No Feels Safe at Home: Yes Safety Concerns: Feels Safe At This Time Assistive Devices: Glasses Physical Exam 2 Physical Exam: In general is well-developed well-nourished white male in no acute distress. HEENT exam is negative. Neck is supple with full carotid upstrokes. No carotid bruits. Jugular venous pressure is difficult to assess. Cardiovascular exam reveals a regular rhythm with normal S1 and S2. No S3, S4, or murmurs are noted. Lungs are clear without rales, rhonchi or wheezes. Abdomen is soft and nontender without bruits. Extremities reveal intact radial artery pulses bilaterally. There is no peripheral edema. Right shoulder is dressed. Results & Data ([facility]) Vital Signs (Past 12 Hours) Vital Signs Temp Pulse Pulse Resp BP Pulse Ox O2 Del Method 01/19/22 13:50 36.6 C 61 19 124/70 93 Room Air 01/19/22 13:40 60 17 126/70 93 Room Air 01/19/22 13:30 71 16 136/78 93 Room Air 01/19/22 13:20 86 19 112/71 97 Oxymask 01/19/22 13:10 87 17 155/89 H 94 Oxymask 01/19/22 13:01 36.1 C L 85 19 154/86 H 96 Oxymask 01/19/22 07:56 37 C 61 20 155/101 H 97 Room Air O2 Flow Rate 01/19/22 13:50 01/19/22 13:40 01/19/22 13:30 01/19/22 13:20 6 01/19/22 13:10 6 01/19/22 13:01 6 01/19/22 07:56 Laboratory Results CBC notes hemoglobin 15.4, hematocrit 46.8, white count 8.3, and platelet count [id number]. Electrolytes note a sodium of 144, potassium 4.6, chloride 109, bicarb 30, BUN 25, creatinine 1.01, glucose of 95. Diagnostic Findings Review of the assembler for puller over machine strips during the surgical procedure appear benign. I see no acute ST segment changes. Twelve lead EKG performed in the PACU notes sinus bradycardia without abnormalities. PG Care Time/CCT Total # of Minutes Spent Total Time Spent with Patient: Total time spent is greater than 50% in coordination of care (as documented) at patient's floor/unit and/or counseling patient: Coding Level of Care Code 02399 Initial Inpt Care Lvl 3 Diagnoses Abnormal ECG R94.31 Coronary artery disease I25.10 PAF (paroxysmal atrial fibrillation) I48.0 Hypertension I10 Hyperlipidemia E78.5 Hyperlipidemia type: unspecified (1) Hyperlipidemia Hyperlipidemia type: unspecified Qualified Code(s): E78.5 - Hyperlipidemia, unspecified
--- NOTE | 2022-01-19 14:48 | Hospitalist Consultation ---
Date of Consultation January 19, 2022 Assessment & Plan (1) Abnormal ECG: Mo is a 81-year-old male with a past medical history of paroxysmal A. fib, hypertension, hyperlipidemia, CAD who presented for shoulder arthroplasty 01/[address] depressions. We have been consulted for medical review of ST depressions and coronary disease and medication management. S/p shoulder arthroplasty Consulted for intraoperative ST depressions, concern for intermittent bundle branch block Patient is anticoagulated for A. 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 Updated echo Continue aspirin daily, patient also on Xarelto for A. fib Continue losartan 01/20 if no elevated creatinine or hypotension Continue atorvastatin Paroxysmal atrial fibrillation Currently in NSR Recommend resuming Xarelto 24 hours postop Follow on PCU Hypertension Adequately controlled, continue losartan as above Hyperlipidemia Continue atorvastatin DVT prophylaxis: Per primary team Diet: Heart healthy Disposition: PCU for observation CODE STATUS: Full code (2) Coronary artery disease: (3) Chronic anticoagulation: (4) CAD (coronary artery disease): (5) PAF (paroxysmal atrial fibrillation): (6) Hypertension: (7) Hyperlipidemia: History of Present Illness Attending Physician: Panfilo Ross MD History of Present Illness Mo is a 81-year-old male with a past medical history of paroxysmal A. fib, hypertension, hyperlipidemia, CAD who presented for shoulder arthroplasty 01/[address] depressions. We have been consulted for medical review of ST depressions and coronary disease and medication management. Been follows with [facility] cardiology, does well and is very active able to use a exercise bike at least 90 minutes/week with additional strength exercise and no symptoms of angina. Has not had any chest pain, chest pressure, syncope, presyncope, lightheadedness, dizziness. History of a MAREK to RCA in 2009 and subsequently weaned off of DAPT to aspirin monotherapy. Doing well with no anginal symptoms/equivalent ADMISSIONS REPRESENTATIVE. no chest pain, chest pressure, shortness of breath postoperatively. Does have paroxysmal A. fib, currently in sinus, is anticoagulated without history of bleeding. Patient by report did have ST segment depressions intraoperatively which improved following fluids/blood pressure improvement and were improved on postoperative reevaluation. At bedside patient reports he feels very well, has had no chest pain, and notes good exercise tolerance on his exercise bike. Fingers are still little numb after the procedure, but is able to move them without difficulty. No shortness of breath/lightheadedness/dizziness. Medical History: Reviewed Medications: Reviewed Surgical History: Reviewed Allergies: Reviewed Social History: Former smoker, social alcohol use Code Status:Full Allergies Allergy/AdvReac Type Severity Reaction Status Date / Time metoprolol AdvReac Intermediate Diarhea Verified 01/19/22 07:48 Home Medications Medication Instructions Recorded Confirmed Type coenzyme Q10 100 mg capsule 100 mg PO QAM 10/17/18 01/19/22 History losartan 50 mg tablet 50 mg PO QAM #90 tabs 03/09/21 01/19/22 Rx methenamine hippurate 1 gram tablet 1 g PO QAM #90 tabs 03/09/21 01/19/22 Rx finasteride 5 mg tablet 5 mg PO QAM 11/11/21 01/19/22 History tamsulosin 0.4 mg capsule 0.4 mg PO QAM 11/11/21 01/19/22 History atorvastatin 80 mg tablet 80 mg PO QAM #90 tabs 12/13/21 01/19/22 Rx rivaroxaban 20 mg tablet (Xarelto) 20 mg PO QAM #90 tabs 12/27/21 01/19/22 Rx aspirin 81 mg chewable tablet 81 mg PO QAM 01/13/22 01/19/22 History Patient History Medical History (Updated 01/19/22 @ 14:19 by Luiz Mcconnell MD) Benign prostatic hyperplasia CAD (coronary artery disease) 2009 s/p MAREK to dRCA History of COVID-19 12/17/21: sore throat, cough, fatigue, weakness. doing well currently, does have a lingering cough HLD (hyperlipidemia) HTN (hypertension) Hx of myocardial infarction 2009 s/p MAREK to dRCA Hyperlipidemia Hypertension Intra-abdominal abscess monitoring -- no treatment, no issues Osteoarthritis PAF (paroxysmal atrial fibrillation) Follows with Dr. John--on xarelto daily Sleep apnea No device, "does not need" device since weight loss per pt, no formal retesting Surgical History H/O colonoscopy History of total right hip arthroplasty Hx of cardiac cath 2009 > stent Hx of cataract surgery R/L Hx of local excision of skin lesion 10/2018 Family History Other No family history of adverse response to anesthesia No significant family history Social History Smoking Status: Former smoker Smoking End Date: Quit 1959; Second Hand Exposure: No; Do You Dip or Chew Tobacco: No; Tobacco Cessation Education Requested by Patient: No Hx Alcohol Use: Yes Alcohol type: wine Hx Substance Use: No Preferred Language: Botswanan Communication Ability: Effective Visual Impairment: No Limitations Assistant Director Required: No Beliefs That Will Affect Care: None marital status: Current Living Situation: Spouse current occupational status: retired Other Information That Helps Us Care for You: No Feels Safe at Home: Yes Safety Concerns: Feels Safe At This Time Assistive Devices: Hearing Aid - Bilateral Assistive Devices Comment: not at the bedside. Review of Systems Review of Systems: All systems reviewed & are unremarkable except as noted in Subjective Physical Exam Physical Exam: General: A&Ox3. NAD. Cooperative. HEENT: Atraumatic, normocephalic. Vision/hearing grossly intact. Pulm: CTAB A&P. -wheezes, -rales, -rhonchi. Symmetrical chest rise. No increase in work of breathing. No respiratory distress. Cardiac: RRR, -mrg. Radial pulses intact and symmetrical. Abdominal: Nontender, nondistended, soft. BS present. Extremities: Right shoulder in postoperative dressing and sling. Sensation in fingertips slightly diminished on the right side, full in the left. Radial pulse intact bilaterally. Retail Salesperson strength 5/5 bilaterally. No lower extremity edema Results & Data Results & Data ([facility]) Vital Signs (Past 12 Hours) Vital Signs Temp Pulse Pulse Resp BP Pulse Ox O2 Del Method 01/19/22 14:20 36.6 C 66 16 124/74 92 Room Air 01/19/22 13:50 36.6 C 61 19 124/70 93 Room Air 01/19/22 13:40 60 17 126/70 93 Room Air 01/19/22 13:30 71 16 136/78 93 Room Air 01/19/22 13:20 86 19 112/71 97 Oxymask 01/19/22 13:10 87 17 155/89 H 94 Oxymask 01/19/22 13:01 36.1 C L 85 19 154/86 H 96 Oxymask 01/19/22 07:56 37 C 61 20 155/101 H 97 Room Air O2 Flow Rate 01/19/22 14:20 01/19/22 13:50 01/19/22 13:40 01/19/22 13:30 01/19/22 13:20 6 01/19/22 13:10 6 01/19/22 13:01 6 01/19/22 07:56 PG Care Time/CCT Total # of Minutes Spent Total Time Spent with Patient: Total time spent is greater than 50% in coordination of care (as documented) at patient's floor/unit and/or counseling patient: Coding Level of Care Code 48782 Inpt Consult Level 4 Diagnoses Abnormal ECG R94.31 Coronary artery disease I25.10 Chronic anticoagulation Z79.01 CAD (coronary artery disease) I25.10 Associated angina: without angina Coronary Disease-Associated Artery/Lesion type: [place] artery [place] vs. transplanted heart: [place] heart PAF (paroxysmal atrial fibrillation) I48.0 Hypertension I10 Hyperlipidemia E78.5 Hyperlipidemia type: unspecified (1) CAD (coronary artery disease) Associated angina: without angina Coronary Disease-Associated Artery/Lesion type: [place] artery [place] vs. transplanted heart: [place] heart Qualified Code(s): I25.10 - Atherosclerotic heart disease of [place] coronary artery without angina pectoris (2) Hyperlipidemia Hyperlipidemia type: unspecified Qualified Code(s): E78.5 - Hyperlipidemia, unspecified
[2022-01-19] MEDS: ACETAMINOPHEN 500 MG TAB PO SCH ×2 (15:01→21:02)
[2022-01-19] MEDS: SODIUM CHLORIDE 0.9% 1000ML 1,000 ML IV SCH (15:02)
--- NOTE | 2022-01-19 16:57 | Electrocardiogram Report ---
Test Reason : Blood Pressure : / mmHG Vent. Rate : 089 BPM Atrial Rate : 089 BPM P-R Int : 140 ms QRS Dur : 094 ms QT Int : 368 ms P-R-T Axes : 030 -18 -05 degrees QTc Int : 447 ms Normal sinus rhythm Inferior infarct (cited on or before 06-DEC-2021) Abnormal ECG When compared with ECG of 06-DEC-2021 13:39, Vent. rate has increased BY 32 BPM Confirmed by Luiz Mcconnell ([id number]) on 01/19/2022 4:57:06 PM Referred By: Panfilo Ross Confirmed By:Luiz Mcconnell
[2022-01-19] MEDS: ceFAZolin 2000MG 2,000 MG/15 ML SYR IV SCH (19:39)
[2022-01-19] MEDS: DOCUSATE SODIUM 100 MG CAP PO SCH (20:06)
[2022-01-19] MEDS ORDERED: SENNA 8.6 MG TAB PO SCH (21:00)
[2022-01-20] MEDS: SODIUM CHLORIDE 0.9% 1000ML 1,000 ML IV SCH (00:10)
[2022-01-20] MEDS: ceFAZolin 2000MG 2,000 MG/15 ML SYR IV SCH (02:21)
[2022-01-20] MEDS: ACETAMINOPHEN 500 MG TAB PO SCH (05:10)
[2022-01-20 06:07] LABS: Basophils # (auto) 0.03 K/uL (0-0.2); Basophils % (auto) 0.2 %; Hematocrit (blood only) 40.9 % (40.1-51.0); Hemoglobin 13.9 g/dl (14.0-18.0); Immature Granulocytes # (auto) 0.06 K/uL (0.00-0.02); Immature Granulocytes % (auto) 0.4 %; Lymphocytes # (auto) 1.05 K/uL (1.2-3.4); Lymphocytes % (auto) 7.4 %; Mean Corpuscular Hemoglobin 31.7 pg (25.0-34.0); Mean Corpuscular Volume 93.2 fL (80.0-100.0); Mean Platelet Volume 10.4 fL (9.4-12.4); Monocytes # (auto) 1.46 K/uL (0.24-0.82); Monocytes % (auto) 10.3 %; Neutrophils # (auto) 11.62 K/uL (1.4-6.5); Neutrophils % (auto) 81.7 %; Platelet Count 172 K/uL (130-400); RDW Coefficient of Variation 13.4 % (11.5-14.5); RDW Standard Deviation 45.8 fL (36.4-46.3); Red Blood Count 4.39 M/uL (4.63-6.08); White Blood Count 14.22 K/ul (4.8-10.8)
[2022-01-20 06:38] LABS: Troponin I High Sensitivity 9.7 pg/ml (0-20)
[2022-01-20 06:42] LABS: Calcium 7.7 mg/dl (8.5-10.1); Est GFR (Non-African American) 70.8 ml/min; Potassium 3.8 mmol/L (3.5-5.1)
--- NOTE | 2022-01-20 07:19 | Orthopedic Progress Note ---
Date of Service January 20, 2022 Assessment & Plan (1) Primary osteoarthritis, right shoulder: Plan: Postop day #1 right total shoulder arthroplasty -PT/OT per protocol -Pain management as written -DVT prophylaxis: SCDs, teds, home Xarelto -AM labs: Serial troponins have been within normal limits. Mild leukocytosis likely reactive. Patient is asymptomatic. Hemoglobin at 13.4 from 15 preop. Acute blood loss anemia due to surgical loss versus dilutional. -Discharge planning: Plan on discharge home when stable. Patient is orthopedically stable for discharge. Plan on discharge home today if okay with medicine service. Admission and Anticipated Discharge Date Admission Date: January 19, 2022 Subjective Postop day #1 right total shoulder arthroplasty. Patient is doing well with little pain. No other complaints. Denies chest pain, shortness of breath, nausea/vomiting/diarrhea, lightheadedness/dizziness. Review of Systems Review of Systems: All systems reviewed & are unremarkable except as noted in Subjective Physical Exam Physical Exam: Right shoulder: Dressing is clean, dry, intact. Sling in place. Hemovac on suction. Fingers are mobile with good dot net architect strength. Distally neurovascular status and sensation intact. Constitutional: WD/WN, vitals as above Results & Data ([facility]) Vital Signs (Past 12 Hours) Vital Signs Temp Pulse Pulse Resp BP Pulse Ox O2 Del Method 01/20/22 07:04 69 01/20/22 04:00 36.7 C 65 18 121/76 96 Room Air 01/19/22 22:14 121 H 01/19/22 23:39 36.6 C 61 18 131/74 96 Room Air 01/19/22 21:49 Room Air 01/19/22 20:35 36.6 C 81 18 129/77 92 Room Air
[2022-01-20] MEDS: DOCUSATE SODIUM 100 MG CAP PO SCH (08:39)
[2022-01-20] MEDS ORDERED: LOSARTAN POTASSIUM 50 MG TAB PO SCH (09:00)
[2022-01-20] MEDS ORDERED: ATORVASTATIN 40 MG TAB PO SCH (09:00)
[2022-01-20] MEDS ORDERED: RIVAROXABAN 20 MG TAB PO SCH (09:00)
[2022-01-20] MEDS ORDERED: TAMSULOSIN HCL 0.4 MG CAP PO SCH (09:00)
[2022-01-20] MEDS ORDERED: FINASTERIDE 5 MG TAB PO SCH (09:00)
[2022-01-20] MEDS ORDERED: MULTIVITAMIN TAB PO SCH (09:00)
[2022-01-20] MEDS ORDERED: ASPIRIN 81 MG ECTAB PO SCH (09:00)
[2022-01-20] MEDS ORDERED: METHENAMINE HIPPURATE 1 GM TAB PO SCH (09:00)
--- NOTE | 2022-01-20 11:45 | Hospitalist Progress Note ---
Date of Service January 20, 2022 Assessment & Plan (1) Abnormal ECG: Plan: Medically stable for discharge. We will sign off at this time. No changes to chronic medications recommended Mo is a 81-year-old male with a past medical history of paroxysmal A. fib, hypertension, hyperlipidemia, CAD who presented for shoulder arthroplasty 01/[address] depressions. We have been consulted for medical review of ST depressions and coronary disease and medication management. S/p shoulder arthroplasty Consulted for intraoperative ST depressions, concern for intermittent bundle branch block Patient is anticoagulated for A. 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 Postoperative EKG returned to normal Echo 10/2018: Mild LVH, LV systolic function normal, no significant valvular disease. Updated echo Continue aspirin daily, patient also on Xarelto for A. fib Continue losartan Continue atorvastatin Appreciate cardiology consult Paroxysmal atrial fibrillation Currently in NSR Recommend resuming Xarelto 24 hours postop Follow on PCU Hypertension Adequately controlled, continue losartan as above Hyperlipidemia Continue atorvastatin DVT prophylaxis: Per primary team Diet: Heart healthy Disposition: Medically stable for disch CODE STATUS: Full code (2) Coronary artery disease: (3) Chronic anticoagulation: (4) PAF (paroxysmal atrial fibrillation): (5) Hypertension: (6) Hyperlipidemia: Admission and Anticipated Discharge Date Admission Date: January 19, 2022 Subjective Pain under control. No acute concerns or questions from the patient. No chest pain, shortness of breath, palpitations. High sensitivity troponins negative overnight. Review of Systems Review of Systems: All systems reviewed & are unremarkable except as noted in Subjective Physical Exam Constitutional: WD/WN, vitals as above Neck: trachea midline, no thyromegaly Respiratory: normal respiratory effort, lungs clear to auscultation Cardiovascular: RRR, no murmur, no edema Gastrointestinal (Abdomen): normal bowel sounds, soft, nontender, no hepatosplenomegaly Psychiatric: A+Ox3, euthymic affect Results & Data Results & Data ([facility]) Vital Signs (Past 12 Hours) Vital Signs Temp Pulse Pulse Resp BP Pulse Ox O2 Del Method 01/20/22 11:39 36.9 C 65 20 152/83 H 92 01/20/22 11:08 36.9 C 65 20 152/83 H 92 01/20/22 08:00 36.8 C 69 20 154/83 H 95 01/20/22 07:04 69 01/20/22 04:00 36.7 C 65 18 121/76 96 Room Air PG Care Time/CCT Total # of Minutes Spent Total Time Spent with Patient: Total time spent is greater than 50% in coordination of care (as documented) at patient's floor/unit and/or counseling patient: Coding Level of Care Code 02554 Subseq Hosp Care Lvl 2 Diagnoses Abnormal ECG R94.31 Coronary artery disease I25.10 Chronic anticoagulation Z79.01 PAF (paroxysmal atrial fibrillation) I48.0 Hypertension I10 Hyperlipidemia E78.5 Hyperlipidemia type: unspecified (1) Hyperlipidemia Hyperlipidemia type: unspecified Qualified Code(s): E78.5 - Hyperlipidemia, unspecified
--- NOTE | 2022-01-22 07:45 | Discharge Summary ---
Date of Service January 22, 2022 Admission HPI Per Admitting Provider 81-year-old male with past medical history significant hypertension, high cholesterol, BPH, proximal A. fib, CAD, history of GA who presents with ongoing right shoulder pain. Pain is interfering with his daily activities. He has failed conservative measures and would like to proceed with surgical invention. Patient denies headaches, sweats, fevers, chills, double vision, blurred vision, cough, sore throat, dysphagia, chest pain, sob, wheezing, n/v/d/c, numbness, tingling, fatigue, urinary symptoms, mood disorders. ROS positive for right shoulder pain and stiffness. Admission Exam Per Admitting Provider Constitutional: well developed and well nourished; no acute distress Eyes: PERRL, conjunctivae normal, anicteric sclerae ENMT: external ear and nose normal, oropharynx normal Neck: trachea midline, no thyromegaly Respiratory: normal respiratory effort, lungs clear to auscultation Cardiovascular: RRR, no murmur, no edema Musculoskeletal: Right shoulder: Diffuse tenderness. Crepitation with range of motion. There is painful range of motion. Negative impingement signs. External rotation to 45 degrees, forward flexion of 120 degrees, abduction to 90 degrees. Skin: no rashes, warm and dry Neurologic: patellar DTR's 2+ bilat, sensation intact Psychiatric: A+Ox3, euthymic affect Principal Diagnosis Right shoulder osteoarthritis Discharge Exam Right shoulder: Dressing is clean, dry, intact. Sling in place. Hemovac on suction. Fingers are mobile with good mapping specialist strength. Distally neurovascular status and sensation intact. Constitutional WD/WN, vitals as above well developed and well nourished; no acute distress Discharge Data Allergies Allergy/AdvReac Type Severity Reaction Status Date / Time metoprolol AdvReac Intermediate Diarhea Verified 01/19/22 07:48 Consultations 01/14/22 16:03 Consult Hospitalist Routine Procedures Performed Operation Date: 01/19/22 09:35 Actual Procedures p Right Total Shoulder Arthroplasty, Subacromial Decompression, Distal Clavicle Excision(Right) - Panfilo Ross MD Ordered Studies 12/22/21 05:00 US - OR guided needle placemen Routine 01/19/22 05:00 US - OR guided needle placemen Routine Hospital Course (1) Primary osteoarthritis, right shoulder: Postop day #1 right total shoulder arthroplasty -PT/OT per protocol -Pain management as written -DVT prophylaxis: SCDs, teds, home Xarelto -AM labs: Serial troponins have been within normal limits. Mild leukocytosis likely reactive. Patient is asymptomatic. Hemoglobin at 13.4 from 15 preop. Acute blood loss anemia due to surgical loss versus dilutional. -Discharge planning: Plan on discharge home when stable. Patient is orthopedically stable for discharge. Plan on discharge home today if okay with medicine service. Lab Results 01/19/22 01/19/22 01/19/22 Range/Units 15:01 16:30 22:45 WBC (4.8-10.8) K/ul RBC (4.63-6.08) M/uL Hgb (14.0-18.0) g/dl Hct (40.1-51.0) % MCV (80.0-100.0) fL MCH (25.0-34.0) pg MCHC (32.0-36.0) g/dL RDW Std Deviation (36.4-46.3) fL RDW Coeff of Negin (11.5-14.5) % Plt Count (130-400) K/uL MPV (9.4-12.4) fL Immature Gran % (Auto) % Neut % (Auto) % Lymph % (Auto) % Ballard % (Auto) % Eos % (Auto) % Baso % (Auto) % Neut # (Auto) (1.4-6.5) K/uL Lymph # (Auto) (1.2-3.4) K/uL Ballard # (Auto) (0.24-0.82) K/uL Eos # (Auto) (0-0.50) K/uL Baso # (Auto) (0-0.2) K/uL Immature Gran # (Auto) (0.00-0.02) K/uL Sodium (136-145) mmol/L Potassium (3.5-5.1) mmol/L Chloride (98-107) mmol/L Carbon Dioxide (21-32) mmol/L Anion Gap (3-11) BUN (6-23) mg/dl Creatinine (0.6-1.4) mg/dl Est Cr Clr Drug Dosing ml/min Est GFR ( Amer) ml/min Est GFR (Non-Af Amer) ml/min BUN/Creatinine Ratio (10-20) Glucose (70-99(Fasting)) mg/dl Calcium (8.5-10.1) mg/dl Troponin I High Sens 8.1 6.3 9.2 (0-20) pg/ml 01/20/22 01/20/22 01/20/22 Range/Units 05:37 05:37 10:24 WBC 14.22 H (4.8-10.8) K/ul RBC 4.39 L (4.63-6.08) M/uL Hgb 13.9 L (14.0-18.0) g/dl Hct 40.9 (40.1-51.0) % MCV 93.2 (80.0-100.0) fL MCH 31.7 (25.0-34.0) pg MCHC 34.0 (32.0-36.0) g/dL RDW Std Deviation 45.8 (36.4-46.3) fL RDW Coeff of Negin 13.4 (11.5-14.5) % Plt Count 172 (130-400) K/uL MPV 10.4 (9.4-12.4) fL Immature Gran % (Auto) 0.4 % Neut % (Auto) 81.7 % Lymph % (Auto) 7.4 % Ballard % (Auto) 10.3 % Eos % (Auto) 0.0 % Baso % (Auto) 0.2 % Neut # (Auto) 11.62 H (1.4-6.5) K/uL Lymph # (Auto) 1.05 L (1.2-3.4) K/uL Ballard # (Auto) 1.46 H (0.24-0.82) K/uL Eos # (Auto) 0.00 (0-0.50) K/uL Baso # (Auto) 0.03 (0-0.2) K/uL Immature Gran # (Auto) 0.06 H (0.00-0.02) K/uL Sodium 139 (136-145) mmol/L Potassium 3.8 (3.5-5.1) mmol/L Chloride 108 H (98-107) mmol/L Carbon Dioxide 25 (21-32) mmol/L Anion Gap 6 (3-11) BUN 21 (6-23) mg/dl Creatinine 1.00 (0.6-1.4) mg/dl Est Cr Clr Drug Dosing 66.0 ml/min Est GFR ( Amer) 82.0 ml/min Est GFR (Non-Af Amer) 70.8 ml/min BUN/Creatinine Ratio 21.0 H (10-20) Glucose 123 H (70-99(Fasting)) mg/dl Calcium 7.7 L (8.5-10.1) mg/dl Troponin I High Sens 9.7 9.3 (0-20) pg/ml Total Time Total Time Spent Total Time Spent (In Minutes): 20 Discharge Plan Discharge Items Patient Disposition: Home - Self-Care Reason For Visit: Osteoarthritis Right Glenohumeral Joint, Impingeme Discharge Diagnosis: Right shoulder osteoarthritis Activity: Per Instructions section Non-emergency contact: Surgeon Call non-emergency contact if: you have any medication questions, your pain is not controlled, your pain is concerning for you, you have a fever, your temperature is above 101, your wound has increased redness and your wound has increased drainage Follow-up/Referrals: Marah Helm MD [Primary Care Provider] - Diet: Regular Addtl Attending Provider Instructions: ACTIVITY RECOMMENDATIONS: SELF CARE INSTRUCTIONS AFTER TOTAL SHOULDER ARTHROPLASTY A. You may do daily exercises as taught in physical therapy while in hospital. No lifting with the operative arm. Please schedule your outpatient physical therapy appointment to begin within 2-3 days after leaving the hospital. Specific restrictions will be written on your physical therapy prescription that is provided to you. B. You are to wear your sling/immobilizer at all times EXCEPT when performing your daily exercises, participating in physical therapy and for hygiene purposes. C. You may perform dry, daily dressing changes. Please keep your incision covered. You may shower 48 hours after surgery. Do not apply soap or any ointment/lotions directly over incision. Do not soak incision in bath tub/swimming pool. D. You may use ice as needed to operative shoulder. SPECIAL CARE INSTRUCTIONS: VERY IMPORTANT TO READ AND REVIEW A. There are a few signs you need to watch for after you are home. Call [facility] at [phone] if you experience any of the followin. Increased severe shoulder pain. Some pain is expected especially when you exercise. 2. Increased swelling in you shoulder or arm; pain or swelling in either upper extremity. 3. Any fluid drainage from the incision. 4. Shortness of breath or chest pain. B. Please call [facility] at [phone] if you have any questions or concerns about your operation or recovery. C. Call your physician if: 1. Temperature is greater than 101 degrees (F). 2. Pain is not relieved by prescribed pain medications. 3. Increase drainage or redness from incision. 4. Unanswered questions or concerns. FOLLOW UP VISIT: Please call [facility] at [phone] to schedule a follow up appointment with Dr. Ross or his PA in 12-14 days from your surgery date. Stand-Alone Forms: [facility], Smoking Cessation Medications and DC Order Prescriptions: New acetaminophen [Tylenol Extra Strength] 500 mg Tablet 1,000 mg PO Q8 Qty: 60 0RF oxycodone 5 mg Tablet 5 - 10 mg PO .Q4h-6h MDD 6 PRN (Reason: pain) Qty: 30 0RF Rx Instructions: Ongoing therapy, Dr. Ross supervising Continued methenamine hippurate 1 gram tablet 1 g PO QAM Qty: 90 3RF losartan 50 mg tablet 50 mg PO QAM Qty: 90 3RF atorvastatin 80 mg tablet 80 mg PO QAM Qty: 90 3RF Xarelto 20 mg tablet 20 mg PO QAM Qty: 90 3RF coenzyme Q10 100 mg Capsule 100 mg PO QAM tamsulosin 0.4 mg capsule 0.4 mg PO QAM finasteride 5 mg tablet 5 mg PO QAM aspirin 81 mg tablet,chewable 81 mg PO QAM Discharge Orders: Discharge Order (Routine); Ordered 01/20/22 Ordered By: Ravinder Izquierdo Admission Data Admit Date/Time: 01/19/22 12:59 Attending Provider: Panfilo Ross Admit Provider: Panfilo Ross Primary Care Provider: Marah Helm Other Providers: Felice Wiggins Jonathan M. Other Interventions: Discharge Summary Assessment (RN) Last Done: 01/20/22 11:39
== END 2022-01-20 12:26 | disposition home or self-care (01) ==
LOC: ASU 07:24 → INTOOBSV 12:59 → 2N 12:59

== ENCOUNTER 2022-09-05 05:20 | Observation (INO) ==
--- NOTE | 2022-08-30 08:45 | Anesthesiology Consultation ---
Date of Service August 30, 2022 Assessment & Plan (1) Encounter for pre-operative examination: Chart Review Chart Review: Acceptable Risk for Surgery and Patient NOT seen in Pre Admission Testing Per cardio workload note 08/09/22 re: upcoming urology surgery = "Can hold Xarelto 2 days leading up to his procedure." -COVID screening: Per PAT nursing assessment on 08/23/22. No known COVID-19 positive contacts or current COVID-19 related symptoms. Travel screen negative. Patient vaccinated for Covid. At surgeon discretion if preop Covid testing being done. Pt seen by cardio 07/05/22= CADhistory of RCA MAREK. Continues without anginal or anginal equivalent symptoms since last visit. Stable exercise tolerance and stamina. No signs or symptoms of heart failure. No symptoms suggestive of recurrence of atrial fibrillation. No symptoms of an arrhythmia in the interim. Remain on current medication and dosages. Continue long-term anticoagulation therapy in light of prior extent no atrial fibrillation. Follow-up in 6 months. Right shoulder total arthroplasty with subacromial decompression on 01/19/2022 = done under GA with grade 2 view with MAC #4. ETT #7.5. Per anesthesia progress note 01/19/22= "The patient was noted to have EKG changes intraoperatively. There appeared to be some ST depression and a bundle branch block. A 12 lead EKG was ordered in PACU, which was fairly unremarkable compared to his previous EKG. I spoke with the patient, and he denied any CP or SOB. His vital signs were stable. I spoke with Dr. Bishop and Dr. Mcconnell in regards to the patient. I recommended the patient go to med/telemetry for further observation. The patient was otherwise stable to be discharged from PACU." (Cardiology consulted - "monitoring analyst strips and postoperative EKG fail to show acute changes. Recommend observation in the PCU overnight." Serum troponins were WNL- no issues noted) History Surgery Operation Date: 09/05/22 07:00 Proposed Procedures p TURP (Transurethral Resection of the Prostate) - Keo Harrison MD Height/Weight Height: 5 ft 8 in Weight: 86.183 kg Allergies Allergy/AdvReac Type Severity Reaction Status Date / Time metoprolol AdvReac Intermediate Diarhea Verified 08/23/22 10:20 Medications Home Medications Medication Instructions Recorded Confirmed Last Taken coenzyme Q10 100 mg capsule 100 mg PO QAM 10/17/18 08/23/22 01/05/22 atorvastatin 80 mg tablet 80 mg PO QAM #90 tabs 12/13/21 08/23/22 01/19/22 06:45 rivaroxaban 20 mg tablet (Xarelto) 20 mg PO QAM #90 tabs 12/27/21 08/23/22 01/16/22 07:00 aspirin 81 mg chewable tablet 81 mg PO QAM 01/13/22 08/23/22 01/19/22 06:45 acetaminophen 500 mg tablet 1,000 mg PO Q8 #60 tabs 01/20/22 08/23/22 Unknown (Tylenol Extra Strength) finasteride 5 mg tablet 5 mg PO DAILY #90 tabs 03/08/22 08/23/22 Unknown losartan 50 mg tablet 50 mg PO QAM #90 tabs 03/08/22 08/23/22 Unknown methenamine hippurate 1 gram tablet 1 g PO QAM #90 tabs 03/08/22 08/23/22 Unknown tamsulosin 0.4 mg capsule 0.4 mg PO DAILY #90 caps 03/08/22 08/23/22 Unknown Past Medical History Medical History Benign prostatic hyperplasia CAD (coronary artery disease) 2009 s/p MAREK to dRCA History of COVID-19 12/17/21: sore throat, cough, fatigue, weakness. doing well currently, does have a lingering cough HLD (hyperlipidemia) HTN (hypertension) Hx of myocardial infarction 2009 s/p MAREK to dRCA Intra-abdominal abscess monitoring -- no treatment, no issues Osteoarthritis PAF (paroxysmal atrial fibrillation) Follows with Dr. John--on xarelto daily Sleep apnea No device, "does not need" device since weight loss per pt, no formal retesting Past Family History Family History Other No family history of adverse response to anesthesia No significant family history Past Surgical History Surgical History H/O colonoscopy History of right shoulder replacement History of total right hip arthroplasty Hx of cardiac cath 2009 > stent Hx of cataract surgery R/L Hx of local excision of skin lesion 10/2018 Social History Smoking Status: Former smoker tobacco type: cigarettes Do You Dip or Chew Tobacco: No Smoking End Date: quit 1959 Hx Alcohol Use: Yes Alcohol type: wine alcohol intake frequency: 0-2 drinks per day Hx Substance Use: No substance use type: does not use Lab Results Anesthesia Preop Results Results Anesthesia Widget: WBC 7.76 K/ul (4.8-10.8) 08/29/22 Hgb 15.7 g/dl (14.0-18.0) 08/29/22 Hct 47.7 % (42.0-52.0) 08/29/22 Plt 188 K/uL (130-400) 08/29/22 Na 141 mmol/L (136-145) 08/29/22 K 4.5 mmol/L (3.5-5.1) 08/29/22 Cl 107 mmol/L (98-107) 08/29/22 CO2 30 mmol/L (21-32) 08/29/22 BUN 20 mg/dl (6-23) 08/29/22 Creat 0.95 mg/dl (0.6-1.4) 08/29/22 Glucose Level 97 mg/dl (70-99(Fasting)) 08/29/22 Testing Laboratory Results 08/29/22= URINE CULTURE: pending (will leave to surgeon's discretion on how to proceed when resulted) 08/05/22= UA: Moderate urine blood Electrocardiogram Date: 01/19/22 NSR at 89bpm Inferior infarct (cited on or before Dec 06, 2021) (Artifact noted on 01/19/22 EKG- will leave to anesthesiologist discretion DOS if repeat EKG needed - "cannot rule out inferior infarct- since at least 2020) Chest X-Ray Date: 12/06/21 FINDINGS: Cardiomediastinal and hilar silhouettes are within normal limits. No pneumothorax, pleural effusion, airspace consolidation or overt pulmonary edema. Mild subsegmental linear bibasilar atelectasis versus scarring. Hyperinflation with diaphragmatic flattening. Degenerative changes of the shoulders and spine. IMPRESSION: No acute process. Echocardiogram Date: 10/18/18 EF 55-60%. No regional motion abnormality. Mild concentric LVH. No significant valvular disease.
[2022-09-05] MEDS ORDERED: ceFAZolin 2000MG 2,000 MG/15 ML SYR IV SCH (06:00)
[2022-09-05] MEDS ORDERED: LR 15ML/HR IV SCH (06:00)
[2022-09-05] MEDS ORDERED: LIDOCAINE 2% 2 ML VIAL/AMP(20MG/ML) INFIL ONE (06:42)
[2022-09-05] MEDS ORDERED: PROPOFOL IV EMULSION 10 MG/ML 20 ML VIAL IV ONE (06:42)
[2022-09-05] MEDS ORDERED: ONDANSETRON INJ 2 MG/ML 2 ML VIAL ONE (06:42)
[2022-09-05] MEDS ORDERED: fentaNYL citrate PF 100 MCG/2 ML VIAL ONE (06:44)
[2022-09-05] MEDS ORDERED: MIDAZOLAM HCL 1 MG/ML 2ML VIAL ONE (06:44)
[2022-09-05] MEDS ORDERED: IBUPROFEN 200 MG TAB PO PRN (06:45)
--- NOTE | 2022-09-05 06:45 | History & Physical Report ---
Date of Service September 05, 2022 Assessment & Plan (1) Incomplete emptying of bladder: Plan: We reviewed the plan for transurethral resection of the prostate. We reviewed risks and benefits including risk of bleeding, infection, injury to urinary tract, changes in urinary continence. He expressed understanding and would like to proceed with surgery. History of Present Illness Primary Care Provider: Marah Helm MD This is an 81-year-old male followed by urology for BPH and incomplete bladder emptying. Recent cystoscopy demonstrated prostatic growth with a ball-valve like lobe of tissue extending into the bladder. He presents to the OR today for resection of this tissue. Allergies Allergy/AdvReac Type Severity Reaction Status Date / Time metoprolol AdvReac Intermediate Diarhea Verified 09/05/22 05:46 Home Medications Medication Instructions Recorded Confirmed Type coenzyme Q10 100 mg capsule 100 mg PO QAM 10/17/18 09/05/22 History atorvastatin 80 mg tablet 80 mg PO QAM #90 tabs 12/13/21 09/05/22 Rx rivaroxaban 20 mg tablet (Xarelto) 20 mg PO QAM #90 tabs 12/27/21 09/05/22 Rx aspirin 81 mg chewable tablet 81 mg PO QAM 01/13/22 09/05/22 History acetaminophen 500 mg tablet 1,000 mg PO Q8 #60 tabs 01/20/22 09/05/22 Rx (Tylenol Extra Strength) finasteride 5 mg tablet 5 mg PO DAILY #90 tabs 03/08/22 09/05/22 Rx losartan 50 mg tablet 50 mg PO QAM #90 tabs 03/08/22 09/05/22 Rx methenamine hippurate 1 gram 1 g PO QAM 09/05/22 09/05/22 History tablet (Hiprex) tamsulosin 0.4 mg capsule (Flomax) 0.4 mg PO DAILY 09/05/22 09/05/22 History Past Med/Surg History Medical History Benign prostatic hyperplasia CAD (coronary artery disease) 2009 s/p MAREK to Roger History of COVID-19 12/17/21: sore throat, cough, fatigue, weakness. doing well currently, does have a lingering cough HLD (hyperlipidemia) HTN (hypertension) Hx of myocardial infarction 2010 s/p MAREK to Roger Intra-abdominal abscess monitoring -- no treatment, no issues Osteoarthritis PAF (paroxysmal atrial fibrillation) Follows with Dr. John--on xarelto daily Sleep apnea No device, "does not need" device since weight loss per pt, no formal retesting Surgical History H/O colonoscopy History of right shoulder replacement History of total right hip arthroplasty Hx of cardiac cath 2009 > stent Hx of cataract surgery R/L Hx of local excision of skin lesion 10/2018 Family History Other No family history of adverse response to anesthesia No significant family history Social History Smoking Status: Former smoker Smoking End Date: quit 1959; Second Hand Exposure: No; Do You Dip or Chew Tobacco: No; Tobacco Cessation Education Requested by Patient: No Hx Alcohol Use: Yes Alcohol type: wine Hx Substance Use: No Preferred Language: Japanese Communication Ability: Effective Visual Impairment: No Limitations Photographic Specialist Required: No Beliefs That Will Affect Care: None marital status: Current Living Situation: Spouse current occupational status: retired Feels Safe at Home: Yes Safety Concerns: Feels Safe At This Time Assistive Devices: Glasses Review of Systems 12 point review of systems negative except for otherwise indicated. Physical Exam Constitutional: well developed and well nourished; no acute distress Eyes: + anicteric sclerae; pupils not irregular Respiratory: normal respiratory effort; no respiratory distress, does not use accessory muscles and no cough Cardiovascular: well perfused Gastrointestinal (Abdomen): Inspection/Auscultation: abdomen normal to inspection; abdomen not distended Musculoskeletal: Extremities: extremities normal to inspection Skin: normal turgor; no rashes and no lesions Neurologic: moves all extremities and awake Psychiatric: Orientation: alert and oriented x 3 Results & Data Vital Signs (Past 12 Hours) Vital Signs Temp Pulse Resp BP Pulse Ox O2 Del Method 09/05/22 05:56 36.4 C L 60 18 150/86 H 94 Room Air
[2022-09-05] MEDS ORDERED: ATROPINE SULFATE 0.1 MG/ML 10ML SYR IV PRN (06:55)
[2022-09-05] MEDS ORDERED: fentaNYL citrate PF 100 MCG/2 ML VIAL IV PRN (06:55)
[2022-09-05] MEDS ORDERED: ePHEDrine sulfate 50 MG/ML AMP IV PRN (06:55)
[2022-09-05] MEDS ORDERED: ONDANSETRON INJ 2 MG/ML 2 ML VIAL IV PRN ×2 (06:55→12:38)
[2022-09-05] MEDS ORDERED: ePHEDrine sulfate 50 MG/ML SYR ONE (07:46)
--- NOTE | 2022-09-05 07:50 | Operative Report ---
PG Post Operative Report Pre & Post Diagnosis Operation Date: 09/05/22 07:00 Preoperative diagnosis: BPH Postoperative diagnosis: BPH I identified the patient and participated in the time-out.: Yes Procedure Operation Date: 09/05/22 07:00 Transurethral resection of prostate Surgeon Keo Harrison MD Press Operator Automatic None Estimated Blood Loss 5 Findings Consistent with Post-Op Diagnosis Specimens Prostate chips Drains 22 [place] three-way Bianchi catheter per urethra, continuous bladder irrigation running Anesthesia Type General Complications none Disposition Accompanied Patient To Recovery: Yes Disposition: Recovery Room Indications This is an 81-year-old male recently seen by urology for incomplete bladder emptying. Cystoscopy identified a prominent intravesical lobe of prostate tissue that was likely acting as a ball-valve and causing obstruction. He presents to the OR for cystoscopy and transurethral resection of this tissue. Description of Procedure The patient was identified in the holding area and informed consent was confirmed. He was taken to the operating room where general anesthesia was initiated. He was placed in the dorsal lithotomy position with all pressure points appropriately padded. He was prepped and draped in the usual sterile fashion and a preoperative timeout was performed. His urethral meatus was somewhat narrow. Meatus was dilated using Taylor dilators from 18-28 South African. A well-lubricated resectoscope was inserted per urethra and panendoscopy was performed. The penile urethra was normal with no strictures or mucosal abnormalities. His prostate was enlarged with prominent median lobe protruding into the bladder. Ureteral orifices could be visualized in the bladder removed from the level of prostate tissue. Bladder was trabeculated with cellules. No tumors or stones were appreciated. The prostate was systematically resected, starting with the median lobe, taking resection down until the capsular fibers could be identified. The proximal resection was up to the bladder neck, taking care not to injure the ureteral orifices. The distal resection extended to the verumontanum, taking care to chucho id the sphincter. With the median lobe resected, his prostatic fossa was fairly open. I judiciously resected the lateral lobes as well. The prostate chips were evacuated from the bladder and sent for pathologic analysis. Meticulous hemostasis was obtained. A final inspection demonstrated no injury to the ureteral orifices or the sphincter, no remaining prostate chips, and excellent hemostasis at low pressure. A 22 Fr 3-way bianchi catheter was placed. The balloon was inflated with 20 mL of normal saline and the catheter was attached to gravity drainage with continuous irrigation running. The patient was then awakened from anesthesia and was brought to the PACU in stable condition. I attest to the content of the Intraoperative Record and any orders documented t herein. Any exceptions are noted below.
--- NOTE | 2022-09-05 08:50 | Anesthesiology Progress Note ---
Date of Service September 05, 2022 Anesthesia Post Procedure Vital Signs Vital Signs: Temp Pulse Resp BP Pulse Ox O2 Del Method O2 Flow Rate 09/05/22 08:25 62 16 160/81 H 96 Room Air 09/05/22 08:15 66 21 160/81 H 97 Oxymask 3 09/05/22 08:05 59 L 12 157/80 H 97 Oxymask 6 09/05/22 08:35 36.4 C L 59 L 16 154/85 H 96 Room Air 09/05/22 07:58 36.4 C L 69 16 158/91 H 96 Oxymask 6 09/05/22 05:56 36.4 C L 60 18 150/86 H 94 Room Air Transfer of Care Handoff Completed per policy Notes Mental Status: alert / awake / arousable Patient Amnestic to Procedure: Yes Nausea / Vomiting: adequately controlled Pain: adequately controlled Airway Patency, RR, SpO2: stable & adequate BP & HR: stable & adequate Hydration State: stable & adequate Anesthetic Complications: no major complications apparent
[2022-09-05] MEDS: LACTATED RINGER'S 1,000 ML IV SCH (13:04)
[2022-09-05] MEDS: SULFAMETHOXAZOLE/TRIMETHOPRIM DS 800/160MG TAB PO SCH (20:38)
[2022-09-05] MEDS: DOCUSATE SODIUM 100 MG CAP PO SCH (20:38)
[2022-09-06] MEDS: LACTATED RINGER'S 1,000 ML IV SCH ×2 (01:06→14:38)
--- NOTE | 2022-09-06 03:07 | Communication Note ---
Date of Service: September 06, 2022 This is an 81-year-old male who underwent a transurethral resection of prostate by Dr. Harrison on 09/05/2022. The patient was kept in the hospital as he required continuous bladder irrigation via a 22 Turkmen three-way Schultz catheter. I was contacted by nursing staff at approximately 2:20 AM on 09/06/2022 the patient noted abdominal fullness with bladder spasms. She notes that the continuous bladder irrigation was running and was having westbrook red urine with occasional blood clots. The nurse performed a bedside bladder scan showing 700 cc of blood. I arrived at the bedside within 5 minutes and the nurse was already attempting attempts to manually irrigate the catheter per my recommendation. I made several attempts to hand irrigate the catheter without success. During these attempts the Schultz catheter became dislodged and it appeared that the balloon had become deflated. I therefore obtained a new 22 Turkmen three-way Schultz catheter and placed it under sterile conditions into the patient's bladder without difficulty. The balloon of the catheter was inflated with approximately 20 cc of fluid. I immediately obtained bloody urine with some visible blood clots. I then manually flushed and irrigated the catheter with approximately 1 to 1-1/2 L of irrigation. During this irrigation attempt I obtained innumerable small blood clots and dark/maroon-colored/bloody urine. I continued the process of hand irrigation until urine became somewhat security business analyst without any visible clots. His continuous bladder irrigation was then resumed. A bladder scan was performed that showed that the patient's bladder was empty. The patient did note symptomatic relief with this procedure. We will continue to monitor the patient closely and continue with the continuous bladder irrigation. I did discuss with the nurse that if patient has a similar episode the bladder irrigation should be turned off and manual attempts to flush and irrigate the catheter can be employed.
[2022-09-06 07:13] LABS: Basophils # (auto) 0.03 K/uL (0-0.2); Basophils % (auto) 0.3 %; Eosinophils # (auto) 0.06 K/uL (0-0.50); Eosinophils % (auto) 0.6 %; Hematocrit (blood only) 38.2 % (42.0-52.0); Hemoglobin 12.7 g/dl (14.0-18.0); Immature Granulocytes # (auto) 0.05 K/uL (0.01-0.20); Immature Granulocytes % (auto) 0.5 %; Lymphocytes # (auto) 1.54 K/uL (1.2-3.4); Lymphocytes % (auto) 14.5 %; Mean Corpuscular Hemoglobin 31.1 pg (25.0-34.0); Mean Corpuscular Hgb Conc 33.2 g/dL (32.0-36.0); Mean Corpuscular Volume 93.6 fL (80.0-100.0); Mean Platelet Volume 10.3 fL (9.4-12.4); Monocytes # (auto) 1.19 K/uL (0.11-0.59); Monocytes % (auto) 11.2 %; Neutrophils # (auto) 7.76 K/uL (1.40-6.50); Neutrophils % (auto) 72.9 %; Platelet Count 189 K/uL (130-400); RDW Coefficient of Variation 13.4 % (11.5-14.5); RDW Standard Deviation 45.8 fL (36.4-46.3); Red Blood Count 4.08 M/uL (4.70-6.10); White Blood Count 10.63 K/ul (4.8-10.8)
[2022-09-06 07:47] LABS: BUN Creatinine Ratio 20.2 (10-20); Creatinine Clr Calc Pharmacy 68.8 ml/min; Est GFR (African American) 88.4 ml/min; Est GFR (Non-African American) 76.3 ml/min; Potassium 3.9 mmol/L (3.5-5.1)
[2022-09-06] MEDS: SULFAMETHOXAZOLE/TRIMETHOPRIM DS 800/160MG TAB PO SCH ×2 (08:34→20:33)
[2022-09-06] MEDS: DOCUSATE SODIUM 100 MG CAP PO SCH ×2 (08:34→20:55)
[2022-09-06] MEDS: ATORVASTATIN 40 MG TAB PO SCH (08:34)
[2022-09-06] MEDS: TAMSULOSIN HCL 0.4 MG CAP PO SCH (08:34)
[2022-09-06] MEDS: LOSARTAN POTASSIUM 50 MG TAB PO SCH (08:34)
--- NOTE | 2022-09-06 09:27 | Urology Progress Note ---
I have seen and discussed Mr. Jiménez and his case with CAS Marie and agree with the above documentation. He is recovering appropriately s/p TURP on 09/05/2022. We will continue to wean CBI as able. Hopefully we can stop the irrigation and discharge him this afternoon. If hematuria persists, he may require repeat cystoscopy and fulguration/cauterization, however we will monitor for now. -Keo Harrison MD. Date of Service September 06, 2022 Assessment & Plan (1) S/P TURP (status post transurethral resection of prostate): (2) Benign prostatic hyperplasia: (3) Hematuria: Plan 81-year-old male who underwent a transurethral resection of prostate by Dr. Cam post on 09/05/2022 admitted postoperatively as he required continuous bladder irrigation via a 22 Thai three-way Schultz catheter. -POD #1 -Afebrile, hemodynamically stable. -Labs today show normal wbc and creatinine, hemoglobin 12.7. Will continue to trend. -The Schultz cath was manually irrigated overnight and also became dislodged requiring replacement. -The catheter is currently intact and draining light pink to westbrook red urine with CBI on moderate rate. -Continue to monitor Schultz catheter and output. Ok to manually irrigate as needed for clots, retention, suprapubic pain. -We will continue to monitor the patient closely and continue with the continuous bladder irrigation for now. -If he has persistent issues with hematuria and clots requiring irrigation, will consider possible OR for clot evac, fulguration later today or tomorrow. -Continue supportive care and antibiotics. -Will continue to monitor closely. Admission and Anticipated Discharge Date Admission Date: September 05, 2022 Subjective Patient examined at bedside this AM. Awake, resting in bed on arrival. No acute distress. Denies any pain or discomfort at present. Denies fevers, chills, nausea, vomiting. Schultz catheter intact, draining light pink to westbrook red urine with CBI on moderate rate. He did require manual irrigation overnight due to the catheter clotting off. A new 22 Fr 3-way Schultz catheter was also placed. Review of Systems Constitutional: as per Subjective / HPI Gastrointestinal: as per Subjective / HPI Genitourinary: + as per Subjective / HPI Physical Exam Constitutional: well developed and well nourished; no acute distress Respiratory: normal respiratory effort; no respiratory distress and no labored breathing Skin: No visible rashes or lesions to exposed skin areas Neurologic: moves all extremities and awake Psychiatric: A+Ox3, euthymic affect Genitourinary: Schultz draining light pink to westbrook red urine with CBI on moderate rate Results & Data Vital Signs (Past 12 Hours) Vital Signs Temp Pulse Resp BP Pulse Ox O2 Del Method 09/06/22 07:42 36.5 C 57 L 18 155/85 H 93 Room Air 09/06/22 03:45 36.6 C 60 18 159/81 H 97 Room Air PG Care Time/CCT Total # of Minutes Spent Total Time Spent with Patient: Total time spent is greater than 50% in coordination of care (as documented) at patient's floor/unit and/or counseling patient: Coding Level of Care Code 25048 SUB INP/OBS CARE 2/35MIN Diagnoses S/P TURP (status post transurethral resection of prostate) Z90.79 Benign prostatic hyperplasia N40.1 Lower urinary tract symptom presence: symptoms present Lower urinary tract symptom detail: unspecified Hematuria R31.9 (2) Benign prostatic hyperplasia Lower urinary tract symptom presence: symptoms present Lower urinary tract symptom detail: unspecified Qualified Code(s): N40.1 - Benign prostatic hyperplasia with lower urinary tract symptoms
[2022-09-06] MEDS: ACETAMINOPHEN 325 MG TAB PO PRN (20:34)
[2022-09-07] MEDS: LACTATED RINGER'S 1,000 ML IV SCH ×2 (02:22→18:39)
[2022-09-07 06:30] LABS: Hematocrit (blood only) 32.4 % (42.0-52.0); Hemoglobin 10.8 g/dl (14.0-18.0); Mean Corpuscular Hemoglobin 31.6 pg (25.0-34.0); Mean Corpuscular Hgb Conc 33.3 g/dL (32.0-36.0); Mean Corpuscular Volume 94.7 fL (80.0-100.0); Mean Platelet Volume 10.2 fL (9.4-12.4); Platelet Count 178 K/uL (130-400); RDW Coefficient of Variation 13.6 % (11.5-14.5); RDW Standard Deviation 47.1 fL (36.4-46.3); Red Blood Count 3.42 M/uL (4.70-6.10); White Blood Count 9.63 K/ul (4.8-10.8)
[2022-09-07 06:48] LABS: BUN Creatinine Ratio 14.7 (10-20); Calcium 7.9 mg/dl (8.6-10.3); Creatinine Clr Calc Pharmacy 59.3 ml/min; Est GFR (African American) 73.9 ml/min; Est GFR (Non-African American) 63.8 ml/min; Potassium 4.3 mmol/L (3.5-5.1)
--- NOTE | 2022-09-07 08:11 | Urology Progress Note ---
I have seen and discussed Mr. Jiménez's case with CAS Marie and agree with the above documentation. Urine has been persistently blushing on CBI. I would like to get him back on his anticoagulation for A-fib as soon as possible. He also has not had resolution of his hematuria with continuous bladder irrigation. We discussed that we could return to the OR for repeat cystoscopy, fulguration/cauterization, clot evacuation. We reviewed risks of this including bleeding, infection, injury to urinary tract, ongoing hematuria. He expressed understanding would like to proceed with surgery. -Keo Harrison MD. Date of Service September 07, 2022 Assessment & Plan (1) S/P TURP (status post transurethral resection of prostate): (2) Benign prostatic hyperplasia: (3) Hematuria: Plan 81-year-old male who underwent a transurethral resection of prostate by Dr. Marek minaya on 09/05/2022 admitted postoperatively as he required continuous bladder irrigation via a 22 Latvian three-way Schulzt catheter. -POD #2 -Overall feeling well, no reported pain. -Afebrile, hemodynamically stable. -Labs today show normal wbc and creatinine, hemoglobin 10.8. Will continue to trend. -Schultz catheter is currently draining light pink urine with CBI on moderate rate. -Given his persistent hematuria with clots requiring irrigation, will plan to return to OR later today for cystoscopy, clot evacuation, possible fulguration with Dr. Harrison. -Patient agreeable to plan. Risks/benefits discussed. -OR notified. Pt is covered with scheduled PO Bactrim. -Keep NPO. -Continue to monitor Schultz catheter and output. Can titrate CBI as needed. Ok to manually irrigate as needed for clots, retention, suprapubic pain. -Continue supportive care and antibiotics. -Will continue to monitor closely. Admission and Anticipated Discharge Date Admission Date: September 05, 2022 Subjective Pt examined at bedside this AM. Awake, resting in bed on arrival. No acute distress. No reported pain. Denies fevers, chills, nausea, vomiting. Schultz catheter intact, draining light pink to [place] red urine with CBI on moderate rate. Nursing irrigated catheter overnight with removal of several clots. Review of Systems Constitutional: as per Subjective / HPI Gastrointestinal: as per Subjective / HPI Genitourinary: + as per Subjective / HPI Physical Exam Constitutional: well developed and well nourished; no acute distress Respiratory: normal respiratory effort; no respiratory distress and no labored breathing Neurologic: moves all extremities and awake Psychiatric: A+Ox3, euthymic affect Genitourinary: Schultz intact Results & Data Vital Signs (Past 12 Hours) Vital Signs Temp Pulse Resp BP Pulse Ox O2 Del Method 09/07/22 07:05 36.5 C 66 20 127/72 94 Room Air 09/06/22 21:00 36.9 C 18 131/86 97 Room Air PG Care Time/CCT Total # of Minutes Spent Total Time Spent with Patient: Total time spent is greater than 50% in coordination of care (as documented) at patient's floor/unit and/or counseling patient: Coding Level of Care Code 46664 SUB INP/OBS CARE 2/35MIN Diagnoses S/P TURP (status post transurethral resection of prostate) Z90.79 Benign prostatic hyperplasia N40.1 Lower urinary tract symptom detail: unspecified Lower urinary tract symptom presence: symptoms present Hematuria R31.9 (2) Benign prostatic hyperplasia Lower urinary tract symptom detail: unspecified Lower urinary tract symptom presence: symptoms present Qualified Code(s): N40.1 - Benign prostatic hyperplasia with lower urinary tract symptoms
[2022-09-07] MEDS: DOCUSATE SODIUM 100 MG CAP PO SCH ×2 (09:24→20:40)
[2022-09-07] MEDS: SULFAMETHOXAZOLE/TRIMETHOPRIM DS 800/160MG TAB PO SCH (09:26)
[2022-09-07] MEDS: TAMSULOSIN HCL 0.4 MG CAP PO SCH (09:27)
[2022-09-07] MEDS: LOSARTAN POTASSIUM 50 MG TAB PO SCH (09:27)
--- NOTE | 2022-09-07 15:27 | Anesthesiology Consultation ---
Date of Service September 07, 2022 Assessment & Plan Chart Review Chart Review: Acceptable Risk for Surgery and Patient NOT seen in Pre Admission Testing Consults Requested none History Surgery Operation Date: 09/05/22 07:00 Proposed Procedures p TURP (Transurethral Resection of the Prostate) - Keo Harrison MD Operation Date: 09/07/22 11:30 Proposed Procedures p Cystoscopy Clot Evacuation Fulguration - Keo Harrison MD Height/Weight Height: 5 ft 8 in Weight: 91.4 kg Allergies Allergy/AdvReac Type Severity Reaction Status Date / Time metoprolol AdvReac Intermediate Diarhea Verified 09/05/22 05:46 Medications Home Medications Medication Instructions Recorded Confirmed Last Taken coenzyme Q10 100 mg capsule 100 mg PO QAM 10/17/18 09/05/22 09/05/22 05:00 atorvastatin 80 mg tablet 80 mg PO QAM #90 tabs 12/13/21 09/05/22 09/05/22 05:00 rivaroxaban 20 mg tablet (Xarelto) 20 mg PO QAM #90 tabs 12/27/21 09/05/22 09/01/22 aspirin 81 mg chewable tablet 81 mg PO QAM 01/13/22 09/05/22 09/05/22 05:00 acetaminophen 500 mg tablet 1,000 mg PO Q8 #60 tabs 01/20/22 09/05/22 Unknown (Tylenol Extra Strength) finasteride 5 mg tablet 5 mg PO DAILY #90 tabs 03/08/22 09/05/22 09/05/22 05:00 losartan 50 mg tablet 50 mg PO QAM #90 tabs 03/08/22 09/05/22 09/05/22 05:00 methenamine hippurate 1 gram 1 g PO QAM 09/05/22 09/05/22 09/05/22 05:00 tablet (Hiprex) sulfamethoxazole 800 1 tab PO BID 5 days #10 tabs 09/05/22 Unknown mg-trimethoprim 160 mg tablet (Bactrim DS) tamsulosin 0.4 mg capsule (Flomax) 0.4 mg PO DAILY 09/05/22 09/05/22 09/05/22 05:00 Active Medications Generic Name Dose Route Start Last Admin Trade Name Freq PRN Reason Stop Dose Admin Acetaminophen 650 mg 09/05/22 06:45 09/06/22 20:34 Acetaminophen 325 Mg Tab PO 10/05/22 06:44 650 mg Q4H PRN Administration Pain Atorvastatin Calcium 80 mg 09/06/22 09:00 09/06/22 08:34 Atorvastatin 40 Mg Tab PO 10/06/22 08:59 80 mg QAM AIME Administration Docusate Sodium 100 mg 09/05/22 21:00 09/07/22 09:24 Docusate Sodium 100 Mg Cap PO 10/05/22 20:59 Not Given BID AIME Lactated Ringer's 1,000 mls @ 75 mls/hr 09/05/22 12:38 09/07/22 02:22 Lr IV 10/05/22 12:37 75 mls/hr .[id number] AIME Administration Losartan Potassium 50 mg 09/06/22 09:00 09/07/22 09:27 Losartan Potassium 50 Mg Tab PO 10/06/22 08:59 50 mg QAM AIME Administration Tamsulosin HCl 0.4 mg 09/06/22 09:00 09/07/22 09:27 Tamsulosin Hcl 0.4 Mg Cap PO 10/06/22 08:59 0.4 mg DAILY AIME Administration Trimethoprim/Sulfamethoxazole 1 tab 09/05/22 21:00 09/07/22 09:26 Sulfamethoxazole/Trimethoprim Ds 800/160mg Tab PO 09/07/22 20:59 1 tab Q12 AIME Administration NPO Date Last Intake of Fluids: 09/06/22 Time Last Intake of Fluids: 22:00 Last Intake of Fluids Comment: Small amount of water today, 09/07/2022 with medications a 926. Date Last Intake of Solids: 09/06/22 Time Last Intake of Solids: 18:00 Past Medical History Medical History Benign prostatic hyperplasia CAD (coronary artery disease) 2009 s/p MAREK to dRCA History of COVID-19 12/17/21: sore throat, cough, fatigue, weakness. doing well currently, does have a lingering cough HLD (hyperlipidemia) HTN (hypertension) Hx of myocardial infarction 2009 s/p MAREK to dRCA Intra-abdominal abscess monitoring -- no treatment, no issues Osteoarthritis PAF (paroxysmal atrial fibrillation) Follows with Dr. John--on xarelto daily Sleep apnea No device, "does not need" device since weight loss per pt, no formal retesting Past Family History Family History Other No family history of adverse response to anesthesia No significant family history Past Surgical History Surgical History H/O colonoscopy History of right shoulder replacement History of total right hip arthroplasty Hx of cardiac cath 2009 > stent Hx of cataract surgery R/L Hx of local excision of skin lesion 10/2018 Social History Smoking Status: Former smoker tobacco type: cigarettes Do You Dip or Chew Tobacco: No Smoking End Date: quit 1959 Hx Alcohol Use: Yes Alcohol type: wine alcohol intake frequency: 0-2 drinks per day Hx Substance Use: No substance use type: does not use Physical Exam Vital Signs Last Vital Signs Temp 97.7 F 09/07/22 07:05 Pulse 66 09/07/22 07:05 Resp 20 09/07/22 07:05 BP 127/72 09/07/22 07:05 Pulse Ox 94 09/07/22 07:05 O2 Del Method Room Air 09/07/22 07:05 O2 Flow Rate 3 09/05/22 08:15 Testing Laboratory Results 09/07/22 06:02 09/07/22 06:02 09/07/22 06:03 POC Glucose 97 Electrocardiogram Date: 01/19/22 NSR at 89bpm Inferior infarct (cited on or before Dec 06, 2021) (Artifact noted on 01/19/22 EKG- will leave to anesthesiologist discretion DOS if repeat EKG needed - "cannot rule out inferior infarct- since at least 2020) Chest X-Ray Date: 12/06/21 FINDINGS: Cardiomediastinal and hilar silhouettes are within normal limits. No pneumothorax, pleural effusion, airspace consolidation or overt pulmonary edema. Mild subsegmental linear bibasilar atelectasis versus scarring. Hyperinflation with diaphragmatic flattening. Degenerative changes of the shoulders and spine. IMPRESSION: No acute process. Echocardiogram Date: 10/18/18 EF 55-60%. No regional motion abnormality. Mild concentric LVH. No significant valvular disease.
[2022-09-07] MEDS ORDERED: ONDANSETRON INJ 2 MG/ML 2 ML VIAL ONE (15:52)
[2022-09-07] MEDS ORDERED: LIDOCAINE 2% 2 ML VIAL/AMP(20MG/ML) INFIL ONE (15:52)
[2022-09-07] MEDS ORDERED: fentaNYL citrate PF 100 MCG/2 ML VIAL ONE (15:52)
[2022-09-07] MEDS ORDERED: PROPOFOL IV EMULSION 10 MG/ML 20 ML VIAL IV ONE ×4 (15:52→17:06)
[2022-09-07] MEDS ORDERED: fentaNYL citrate PF 100 MCG/2 ML VIAL IV PRN (16:01)
[2022-09-07] MEDS ORDERED: ONDANSETRON INJ 2 MG/ML 2 ML VIAL IV PRN (16:01)
[2022-09-07] MEDS ORDERED: ATROPINE SULFATE 0.1 MG/ML 10ML SYR IV PRN (16:01)
[2022-09-07] MEDS ORDERED: ePHEDrine sulfate 50 MG/ML AMP IV PRN (16:01)
[2022-09-07] MEDS ORDERED: KETAMINE 50 MG/5 ML SYRINGE ONE (16:09)
--- NOTE | 2022-09-07 17:28 | Operative Report ---
PG Post Operative Report Pre & Post Diagnosis Operation Date: 09/07/22 11:30 Pre-Op Diagnosis: Benign Prostatic Hyperplasia Post-Op Diagnosis: Benign Prostatic Hyperplasia, clot in bladder I identified the patient and participated in the time-out.: Yes Procedure Operation Date: 09/07/22 11:30 Actual Procedures p Cystoscopy, Clot Evacuation, Fulguration - Keo Harrison MD Surgeon Keo Harrison MD Barrel Filler None Estimated Blood Loss 20 Findings Consistent with Post-Op Diagnosis Specimens None Drains 22 Syrian Bianchi catheter, 20 mL of balloon, continuous bladder irrigation running Anesthesia Type General Complications none Disposition Accompanied Patient To Recovery: Yes Disposition: Recovery Room Indications This is an 81-year-old male who recently underwent TURP. He has had persistent hematuria postoperatively and is being brought back to the OR for clot evacuation and fulguration of the prostate bed. Description of Procedure The patient was identified in the holding area and informed consent was confirmed. He was taken to the operating room where anesthesia was initiated. He was placed in the dorsal lithotomy position with all pressure points appropriately padded. He was prepped and draped in the usual sterile fashion and a preoperative timeout was performed. A well-lubricated resectoscope was inserted per urethra and panendoscopy was performed. His pendulous urethra was normal with no strictures or mucosal abnormalities. The prostatic fossa appeared open with some oozing bleeding. The lumen of the bladder was obscured by clot. Clot evacuation was performed using a Conrado syringe. Approximately 1 to 2 cups of congealed clot was evacuated from the bladder. Surveyed and identified no remaining clot in the bladder. I introduced the bipolar button electrode and used this to thoroughly cauterize the base of the resection site. Once this was concluded, there was good hemostasis. There was no single active bleeding point, however the whole resection bed was somewhat oozy. Made several passes over this with the bipolar electrode to ensure good hemostasis at low pressure. A 22 Fr 3-way bianchi catheter was placed. The balloon was inflated with 20 mL of normal saline. The catheter was hand irrigated to ensure good position. This was somewhat positional and I ended up replacing the catheter over a wire to ensure the tip was located within the bladder. The catheter was then attached to gravity drainage and continuous bladder irrigation was initiated. The patient was then awakened from anesthesia and was brought to the PACU in stable condition. I attest to the content of the Intraoperative Record and any orders documented therein. Any exceptions are noted below.
--- NOTE | 2022-09-07 17:53 | Anesthesiology Progress Note ---
Date of Service September 07, 2022 Anesthesia Post Procedure Vital Signs Vital Signs: Temp Pulse Pulse Resp BP Pulse Ox O2 Del Method 09/07/22 17:50 69 16 99/57 L 95 Room Air 09/07/22 17:40 76 18 98/57 L 97 Room Air 09/07/22 17:33 96.8 F L 89 18 99/55 L 97 Room Air 09/07/22 15:54 98.2 F 89 20 127/67 92 Room Air 09/07/22 15:31 97.7 F 66 18 111/71 94 Room Air 09/07/22 07:05 97.7 F 66 20 127/72 94 Room Air 09/06/22 21:00 98.4 F 18 131/86 97 Room Air Transfer of Care Handoff Completed per policy Notes Mental Status: alert / awake / arousable and participated in evaluation Patient Amnestic to Procedure: Yes Nausea / Vomiting: adequately controlled Pain: adequately controlled Airway Patency, RR, SpO2: stable & adequate BP & HR: stable & adequate Hydration State: stable & adequate Anesthetic Complications: no major complications apparent and Pt Satisfied with anesthetic care
[2022-09-07] MEDS: ACETAMINOPHEN 325 MG TAB PO PRN ×2 (18:38→22:57)
[2022-09-07] MEDS: ATORVASTATIN 40 MG TAB PO SCH (18:39)
[2022-09-08] MEDS: LACTATED RINGER'S 1,000 ML IV SCH (06:15)
--- NOTE | 2022-09-08 08:48 | Urology Progress Note ---
Date of Service September 08, 2022 Assessment & Plan (1) S/P TURP (status post transurethral resection of prostate): (2) Benign prostatic hyperplasia: (3) Hematuria: Plan Doing well s/p TURP on 09/05 with subsequent cystoscopy/clot of back/fulguration on 09/07. Urine is now draining clear and he did not have any issues overnight. He should be ready for a voiding trial. As long as he is able to void, he can go home without a catheter today. Admission and Anticipated Discharge Date Admission Date: September 05, 2022 Subjective Feeling well this morning, denies any issues with catheter overnight Did not require any hand irrigation Tolerating a diet with no nausea or vomiting Denies any fevers or chills Physical Exam Physical Exam: Well-appearing, NAD Genitourinary: Schultz catheter draining clear yellow urine on slow drip CBI Results & Data Vital Signs (Past 12 Hours) Vital Signs Temp Pulse Resp BP Pulse Ox O2 Del Method 09/08/22 07:35 36.8 C 65 16 155/81 H 96 Room Air 09/08/22 05:25 36.5 C 63 14 131/66 94 Room Air 09/08/22 01:20 36.7 C 70 16 128/73 98 Room Air 09/07/22 21:16 36.6 C 65 20 121/73 97 Room Air PG Care Time/CCT Total # of Minutes Spent Total Time Spent with Patient: Total time spent is greater than 50% in coordination of care (as documented) at patient's floor/unit and/or counseling patient: Coding Level of Care Code None Diagnoses S/P TURP (status post transurethral resection of prostate) Z90.79 Benign prostatic hyperplasia N40.1 Lower urinary tract symptom presence: symptoms present Lower urinary tract symptom detail: unspecified Hematuria R31.9 (2) Benign prostatic hyperplasia Lower urinary tract symptom presence: symptoms present Lower urinary tract symptom detail: unspecified Qualified Code(s): N40.1 - Benign prostatic hyperplasia with lower urinary tract symptoms
[2022-09-08] MEDS: DOCUSATE SODIUM 100 MG CAP PO SCH (08:49)
[2022-09-08] MEDS: TAMSULOSIN HCL 0.4 MG CAP PO SCH (08:49)
[2022-09-08] MEDS: LOSARTAN POTASSIUM 50 MG TAB PO SCH (08:49)
[2022-09-08] MEDS: ATORVASTATIN 40 MG TAB PO SCH (08:50)
--- NOTE | 2022-09-08 12:12 | Discharge Summary ---
Date of Service September 08, 2022 Admission HPI Per Admitting Provider This is an 81-year-old male followed by urology for BPH and incomplete bladder emptying. Recent cystoscopy demonstrated prostatic growth with a ball-valve like lobe of tissue extending into the bladder. He underwent TURP on 09/05/2022 and was admitted afterwards for ongoing hematuria. Principal Diagnosis Constitutional: well developed and well nourished; no acute distress Eyes: + anicteric sclerae; pupils not irregular Respiratory: normal respiratory effort; no respiratory distress, does not use accessory muscles and no cough Cardiovascular: well perfused Gastrointestinal (Abdomen): Inspection/Auscultation: abdomen normal to inspection; abdomen not distended Musculoskeletal: Extremities: extremities normal to inspection Skin: normal turgor; no rashes and no lesions Neurologic: moves all extremities and awake Psychiatric: Orientation: alert and oriented x 3 Discharge Exam Well-appearing, NAD Genitourinary Urine clear on slow drip CBI. Discharge Data Allergies Allergy/AdvReac Type Severity Reaction Status Date / Time metoprolol AdvReac Intermediate Diarhea Verified 09/05/22 05:46 Procedures Performed 09/05/2022: TURP - Keo Harrison MD Operation Date: 09/07/22 11:30 Actual Procedures p Cystoscopy, Clot Evacuation, Fulguration - Keo Harrison MD Hospital Course (1) Hematuria: He was managed on CBI postoperatively. Due to ongoing hematuria he returned to the OR on 09/07/2022 for clot evacuation and fulguration. After this, urine was much clearer and catheter was removed on 09/08. He was able to void at this time. He was discharged home in good condition. (2) S/P TURP (status post transurethral resection of prostate): Total Time Total Time Spent Total Time Spent (In Minutes): 15 Discharge Plan Discharge Items Patient Disposition: Home - Self-Care Reason For Visit: Benign Prostatic Hyperplasia Discharge Diagnosis: BPH Activity: Per Instructions section Non-emergency contact: Urologist Call non-emergency contact if: your pain is not controlled and your temperature is above 101 Follow-up/Referrals: Daria Fu CRNP [Nurse Practitioner] - 10/17/22 1:00 pm Marah Helm MD [Primary Care Provider] - Diet: Regular Addtl Attending Provider Instructions: The surgery you had was TURP (Trans-urethral resection of the prostate) Please take all medications as prescribed and keep all follow-ups as scheduled. Please call our office at [phone] with any questions, concerns or need to reschedule appointments for any reason. We are happy to assist you. Medications: -Please resume your normal medications as previously prescribed. -Take a stool softener such as colace or Miralax to keep your stool soft. The goal is one soft bowel movement daily. -For pain, it is ok to take tylenol. You can also try pyridium (also known as AZO). This can be gotten [id number]. It turns your urine a bright orange color. -You have been prescribed an antibiotic (Bactrim). Please take this twice daily for the next 5 days. -If your urine remains clear on 09/09/2022, you can resume your Xarelto at that time. Activity: -Avoid straining or bearing down for the next 1-2 weeks. This can cause or increase bleeding. Avoiding straining to have bowel movements. -If you notice blood in your urine, try to remain well-hydrated to keep the urine dilute. -For the next 2 weeks, avoid activities that put pressure on your perineum (area behind the scrotum), such as riding a bike. What to expect after your procedure: -You may notice some blood in your urine. As long as you are able to empty your bladder, this is okay. You can try to stay well-hydrated to keep the urine dilute. -You may have increased urinary frequency and urgency; this should improve with time. -You may notice some urinary leaking, especially with coughing/sneezing/bearing down. This should improve with time. When to call [facility] Urology at [phone]: Fever of 101F or higher Heavy bleeding Pain that is not controlled with medicine Uncontrolled vomiting Problems urinating or inability to urinate Our office will call to schedule a follow-up appointment in approximately 6 weeks. Pending Studies at Discharge: No Stand-Alone Forms: Anesthesia/Sedation, Adult, My [facility] Medications and DC Order Prescriptions: New sulfamethoxazole-trimethoprim [Bactrim DS] 800-160 mg tablet 1 tab PO BID 5 Days Qty: 10 0RF Continued atorvastatin 80 mg tablet 80 mg PO QAM Qty: 90 3RF Xarelto 20 mg tablet 20 mg PO QAM Qty: 90 3RF losartan 50 mg tablet 50 mg PO QAM Qty: 90 3RF finasteride 5 mg tablet 5 mg PO DAILY Qty: 90 3RF coenzyme Q10 100 mg Capsule 100 mg PO QAM aspirin 81 mg tablet,chewable 81 mg PO QAM acetaminophen [Tylenol Extra Strength] 500 mg Tablet 1,000 mg PO Q8 Qty: 60 0RF methenamine hippurate [Hiprex] 1 gram tablet 1 g PO QAM tamsulosin [Flomax] 0.4 mg capsule 0.4 mg PO DAILY Discharge Orders: Discharge Order (Routine); Ordered 09/08/22 Ordered By: Farzaneh Whittaker/Other Patient Handouts: DVT Post Op Prevention Admission Data Admit Date/Time: 09/05/22 11:33 Attending Provider: Keo Harrison Admit Provider: Keo Harrison Primary Care Provider: Marah Helm Coding Level of Care Code 17297 IN/OBS DISCH 30 MIN/LESS Diagnoses Hematuria R31.9 S/P TURP (status post transurethral resection of prostate) Z90.79 Time Spent (min) 15
== END 2022-09-08 12:45 | disposition home or self-care (01) ==
LOC: ASU 05:20 → 3N 05:20

== ENCOUNTER 2024-09-04 02:41 | Inpatient (IN) ==
--- NOTE | 2024-09-04 03:09 | Emergency Department Note ---
Impression & Plan Hematuria, PAF (paroxysmal atrial fibrillation), Obstructed Schultz catheter, Atrial fibrillation, On apixaban therapy, BPH w urinary obs/LUTS ED Provider Note NAME: ELVIA ESCALANTE AGE: 83 SEX: M : 1940 ARRIVES VIA: Walk-In INFORMANT: Patient ED PROVIDER(S): Valerio Kearns MD CHIEF COMPLAINT: Bloody urine, obstructed Schultz catheter PLAN: Disposition: Admit MEDICAL DECISION MAKING: The patient is a pleasant 83-year-old gentleman with a past medical history of paroxysmal atrial fibrillation on Eliquis, CAD, BPH, hypertension, hyperlipidemia, status post Rezum procedure on 08/15/2024 who presents to the emergency department via walk-in, accompanied by his , for ongoing gross hematuria which she reports has been occurring since his procedure the beginning of August but worsened today after having a voiding trial in the urology office which was unsuccessful and so Schultz catheter was replaced. Patient reports that he began to have pain in his lower abdomen and blood draining around the catheter itself not into the bag. He denies any fevers, chills, cough, congestion, vomiting or diarrhea. On evaluation the patient is uncomfortable no acute distress, afebrile with heart rate in the 130s-160s in the setting of his discomfort and vaccines otherwise stable. He appears clinically dry. He exhibits suprapubic fullness and discomfort without discrete tenderness. There is gross hematuria and clot draining around the catheter tubing but not into the bag itself. Initial attempt was made to irrigate and manually remove clots of his Schultz catheter. This was initially successful however the catheter then immediately clotted. Thus his catheter was upsized and again clot was removed and patient did have brief improvement in symptoms but again clotted off with increasing distention and bladder pain. I did reassess the patient and performed a limited bedside ultrasound which demonstrated large clot within the bladder with associated urinary retention. Thus, three-way catheter was placed and additional manual removal of clot performed prior to initiating irrigation. Case was discussed with Pantera Melendez, urology MARITZA with Dr. Kirkland, urology on- call.. Appreciate consultation and recommendations and bedside assistance with clot evacuation irrigation. EKG demonstrates atrial fibrillation with RVR in the setting of the patient's discomfort and otherwise no overt acute ischemia. WBC 11K with neutrophilia but no left shift. H/H and platelets within normal limits. Chemistry without metabolic acidosis. Electrolytes and LFTs unremarkable. TSH 4.9 and free T4 within normal limits. CT of the abdomen pelvis was completed and per my preliminary independent interpretation demonstrates large clot within the bladder with component of retention of urine even after significant clot evacuation prior to CT. Urology was updated. Heart rate was improving following three-way catheter placement with clot evacuation and irrigation. Case was discussed with Dr. Chadwick, [facility] hospitalist, who will evaluate the patient for admission. Further management per admitting team and additional urology consultation. Triage Nursing notes reviewed and agree them. Prior/external medical records reviewed Vital Signs: reviewed Differential diagnosis: Renal colic, UTI, appendicitis, diverticulitis, mesenteric ischemia, aortic pathology, infections, inflammatory bowel disease, PUD, biliary pathology, as well as other pathologies. ER treatment provided: See below. Diagnostics interpreted by me: ECG: Atrial fibrillation with RVR, 124 bpm, no ectopy, no overt ST elevation or depression. Cardiac Monitoring: An order for continuous cardiac monitoring was placed and demonstrated atrial fibrillation with RVR, 124 bpm, no ectopy. Laboratory studies: See below Imaging studies: See below Consultation(s): Pantera Melendez, urology PAJo-Ann with Dr. Kirkland, urology. Dr. Chadwick, [facility] hospitalist HPI: Per MDM. ROS: See above HPI for pertinent positives & negatives. A total of 10 systems reviewed and were otherwise negative. VITALS:See Below PHYSICAL EXAMINATION: GENERAL: Awake, alert, uncomfortable-appearing, in no distress HENT: Normocephalic, atraumatic. Oropharynx with dry mucous membranes and otherwise unremarkable. EYES: Normal conjunctiva. Sclera non-icteric. NECK: Supple. No nuchal rigidity. FROM. No JVD. RESPIRATORY: Clear to auscultation. CARDIAC: Tachycardic rate, irregular rhythm. Extremities warm and well perfused. Pulses equal. ABDOMEN: Soft, non-distended. No tenderness to palpation. No rebound or guarding. No masses. MUSCULOSKELETAL: Chest examination reveals no tenderness. The back is symmetrical on inspection without obvious abnormality. There is no CVA tenderness to palpation. No joint edema. LOWER EXTREMITIES: Calves are equal size bilaterally and non-tender. No edema. No discoloration. NEURO: Normal sensorium. No sensory or motor deficits noted. SKIN: No rash or jaundice noted. 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) Hypertension Benign prostatic hyperplasia Hyperlipidemia Medical History Hematuria PAF (paroxysmal atrial fibrillation) Arthritis BPH (benign prostatic hyperplasia) History of atrial fibrillation Hx of myocardial infarction 2009 s/p MAREK to dRCA CAD (coronary artery disease) 2009 s/p MAREK to dRCA HLD (hyperlipidemia) HTN (hypertension) Osteoarthritis Sleep apnea No device, "does not need" device since weight loss per pt, no formal retesting Surgical History S/P TURP (transurethral resection of prostate) History of right shoulder replacement History of total right hip arthroplasty H/O colonoscopy Hx of local excision of skin lesion 10/2018 Hx of cataract surgery right/left Hx of cardiac cath 2010 > stent x 1 Family History Other No family history of adverse response to anesthesia No significant family history Social History Smoking Status: Never smoker Tobacco Type: Cigarettes Second Hand Exposure: No; Do You Dip or Chew Tobacco: No; Hx Alcohol Use: Yes Alcohol type: wine Hx Substance Use: No Preferred Language: Wolof Communication Ability: Effective Visual Impairment: No Limitations Tub Attendant Required: No Beliefs That Will Affect Care: None marital status: Current Living Situation: Spouse current occupational status: retired Feels Safe at Home: Yes Assistive Devices: Glasses and Hearing Aid - Bilateral Allergies Allergies Allergy/AdvReac Type Severity Reaction Status Date / Time metoprolol AdvReac Mild Diarrhea Verified 09/04/24 09:21 Home Meds Home Medications Medication Instructions Recorded Confirmed coenzyme Q10 100 mg capsule 100 mg PO QAM 10/17/18 09/04/24 acetaminophen 500 mg tablet 1,000 mg PO Q8 PRN Pain 07/23/24 09/04/24 (Tylenol Extra Strength) aspirin 81 mg tablet,delayed 81 mg PO QAM 07/23/24 09/04/24 release Previous Rx's Medication Instructions Recorded apixaban 5 mg tablet (Eliquis) 5 mg PO BID #60 tabs 07/01/24 atorvastatin 80 mg tablet 80 mg PO QAM #90 tabs 07/03/24 losartan 50 mg tablet 50 mg PO QAM #90 tabs 07/03/24 Results & Data (ED) Vital Signs Vital Signs - 24 hr 09/04/24 02:47 09/04/24 03:18 09/04/24 03:19 Temperature 36.7 C Temperature Source Temporal Artery Scan Pulse Rate 78 157 H 131 H Pulse Rhythm Regular Pulse Strength Normal Respiratory Rate 18 24 Respiratory Effort / Characteristics Non-Labored Spontaneous Respiratory Depth Normal Respiratory Pattern Regular Blood Pressure 140/100 171/99 H Blood Pressure Mean 113 119 Blood Pressure Position Sitting Pulse Oximetry 97 96 Oxygen Delivery Method Room Air Oxygen Flow Rate Sepsis Recent Fever Within 48 Hours No Sepsis New/Unexplained Change in Mental Status N/A Sepsis Action Taken by Nursing No Action Required 09/04/24 03:56 09/04/24 03:58 09/04/24 04:02 Temperature Temperature Source Pulse Rate 130 H 146 H Pulse Rhythm Regular Pulse Strength Respiratory Rate 22 26 H Respiratory Effort / Characteristics Respiratory Depth Respiratory Pattern Blood Pressure 140/103 H Blood Pressure Mean 114 Blood Pressure Position Pulse Oximetry 99 99 99 Oxygen Delivery Method Room Air Room Air Oxygen Flow Rate 0 0 Sepsis Recent Fever Within 48 Hours Sepsis New/Unexplained Change in Mental Status Sepsis Action Taken by Nursing 09/04/24 05:01 09/04/24 05:30 Temperature Temperature Source Pulse Rate 134 H 153 H Pulse Rhythm Pulse Strength Respiratory Rate 25 H 24 Respiratory Effort / Characteristics Respiratory Depth Respiratory Pattern Blood Pressure 125/84 125/100 Blood Pressure Mean 109 113 Blood Pressure Position Pulse Oximetry 95 98 Oxygen Delivery Method Room Air Oxygen Flow Rate Sepsis Recent Fever Within 48 Hours Sepsis New/Unexplained Change in Mental Status Sepsis Action Taken by Nursing Laboratory Data Attestation: I reviewed the patient's lab results. 09/04/24 12:45 09/04/24 03:35 Lab Results 09/04/24 Range/Units 03:35 WBC 11.08 H (4.8-10.8) K/ul RBC 4.70 (4.70-6.10) M/uL Hgb 14.8 (14.0-18.0) g/dl Hct 44.5 (42.0-52.0) % MCV 94.7 (80.0-100.0) fL MCH 31.5 (25.0-34.0) pg MCHC 33.3 (32.0-36.0) g/dL RDW Std Deviation 46.5 H (36.4-46.3) fL RDW Coeff of Negin 13.2 (11.5-14.5) % Plt Count 258 (130-400) K/uL MPV 9.5 (9.4-12.4) fL Immature Gran % (Auto) 0.4 % Neut % (Auto) 65.4 % Lymph % (Auto) 21.5 % Vigo % (Auto) 10.0 % Eos % (Auto) 2.1 % Baso % (Auto) 0.6 % Neut # (Auto) 7.25 H (1.40-6.50) K/uL Lymph # (Auto) 2.38 (1.20-3.40) K/uL Vigo # (Auto) 1.11 H (0.11-0.59) K/uL Eos # (Auto) 0.23 (0.00-0.50) K/uL Baso # (Auto) 0.07 (0.00-0.20) K/uL Immature Gran # (Auto) 0.04 (0.01-0.20) K/uL PT 10.9 (9.0-12.0) Seconds INR 1.0 (0.9-1.1) Sodium 142 (136-145) mmol/L Potassium 3.6 (3.5-5.1) mmol/L Chloride 108 H (98-107) mmol/L Carbon Dioxide 23 (21-32) mmol/L Anion Gap 11 (3-11) BUN 19 (6-23) mg/dl Creatinine 1.18 (0.6-1.4) mg/dl Est Cr Clr Drug Dosing 51.2 ml/min eGFR 61.61 BUN/Creatinine Ratio 16.1 (10-20) Glucose 135 H (70-99(Fasting)) mg/dl Calcium 9.0 (8.6-10.3) mg/dl Magnesium 1.8 (1.7-2.4) mg/dl Total Bilirubin 1.0 (0.2-1.0) mg/dl AST 20 (13-39) U/L ALT 17 (7-52) U/L Alkaline Phosphatase 96 (34-104) U/L Total Protein 7.1 (6.0-8.3) gm/dl Albumin 3.7 (3.4-5.0) gm/dl Globulin 3.4 (2.5-4.0) gm/dl Albumin/Globulin Ratio 1.1 (0.9-2) TSH 4.938 H (0.300-4.500) uIu/ml Free T4 0.95 (0.61-1.60) ng/dl Administered Medications Sodium Chloride (Nss) 1,000 mls @ 80 mls/hr IV .[id number] AIME Stop: 09/04/24 21:59 Last Admin: 09/04/24 09:31 Dose: 80 mls/hr Documented By: RUBIA Lactated Ringer's (Lr) 1,000 mls @ 15 mls/hr IV .Q24H AIME Stop: 09/07/24 09:59 Last Infusion: 09/04/24 11:39 Dose: Infused Documented By: Admin: 09/04/24 10:15 Dose: 15 mls/hr Documented By: MG Losartan Potassium (Losartan Potassium 50 Mg Tab) 50 mg PO QAM AIME Stop: 10/04/24 09:12 Last Admin: 09/04/24 09:32 Dose: 50 mg Documented By: Admin: 09/04/24 09:31 Dose: 50 mg Documented By: RUBIA Discontinued Medications Sodium Chloride (Nss) 500 mls @ 999 mls/hr IV .Q31M ONE Stop: 09/04/24 04:04 Last Infusion: 09/04/24 04:27 Dose: Infused Documented By: Admin: 09/04/24 03:48 Dose: 999 mls/hr Documented By: SAV Acetaminophen (Ofirmev) 1,000 mg in 100 mls @ 400 mls/hr IV NOW STA Stop: 09/04/24 03:50 Last Infusion: 09/04/24 04:27 Dose: Infused Documented By: Admin: 09/04/24 03:48 Dose: 400 mls/hr Documented By: SAV Cefazolin Sodium (Ancef 2000mg) 2,000 mg in 15 mls @ 3.75 mls/min IV PREOP ONE; Protocol Stop: 09/04/24 10:03 Last Admin: 09/04/24 11:41 Dose: 3.75 mls/min Documented By: [id number] Ioversol (Optiray 320 100ml) 100 ml IV ONCE ONE Stop: 09/04/24 06:00 Last Admin: 09/04/24 06:00 Dose: 93 ml Documented By: GERMAIN Morphine Sulfate (Morphine Sulfate 4 Mg/Ml 1 Ml Carp\\Vial) 4 mg IV NOW STA Stop: 09/04/24 04:28 Last Admin: 09/04/24 04:33 Dose: 4 mg Documented By: SUSHIL Morphine Sulfate (Morphine Sulfate 4 Mg/Ml 1 Ml Carp\\Vial) 4 mg IV NOW STA Stop: 09/04/24 06:18 Last Admin: 09/04/24 06:23 Dose: 4 mg Documented By: SUSHIL Imaging Data Radiologist's Impression: Abdomen/Pelvis CT 09/04/24 04:14 EXAM: CT abd pelvis IV con only CLINICAL HISTORY: abd pain, gross hematuria, recent rezum procedure. TECHNIQUE: Contiguous axial images were obtained from the level of the diaphragm to the pubic symphysis with intravenous contrast. Coronal and sagittal reconstructions were likewise performed and indicated to increase the sensitivity for detecting clinically relevant pathology. If IV contrast material had not been administered, the likelihood of detecting abnormalities relevant to the patient's condition would have been substantially decreased. CT scan was performed according to ALARA (as low as reasonable achievable). COMPARISON: 11/09/2020 11:04:18 RING ATTACHER FINDINGS: The visualized lung bases are clear. The liver is normal in size and attenuation. No focal liver lesions are seen. There is no intra or extrahepatic biliary ductal dilatation. Hepatic vasculature is patent. The gallbladder is distended and shows intraluminal density / calculus without cholecystitis.. The spleen, pancreas, and adrenal glands are unremarkable. The kidneys are normal in size and attenuation. There is no hydronephrosis or perinephric fat stranding. No renal calculi or renal masses are identified. Few cortical cysts noted involving left kidney - largest measures about 5.7 cm. The ureters are normal in caliber and no ureteral calculi are seen. The bladder is grossly distended and shows a large intraluminal hyperdensity / clot of size 13 x 10 x 10 cm. The Schultz's bulb is noted in neck of urinary bladder and prostatic urethra- needs repositioning. No focal or diffuse bowel wall thickening or evidence of bowel obstruction is identified. No inflamed appendix is visualized in the right lower quadrant. Abdominal and pelvic vasculature is patent. No adenopathy or fluid collections are seen. No aggressive appearing osseous lesions are identified. Approximately 5.7 x 5.2 x 15 cm sized large lipoma is noted along the left iliacus muscle. Right sided fat containing inguinal hernia.-stable. Prostate appears enlarged in size measures about 4.5 x 5.4 x 5.2 cm. It shows internal hypodensity in air foci- Sequelae of recent operative changes likely. IMPRESSION: 1. The bladder is grossly distended and shows a large intraluminal hyperdensity / clot of size 13 x 10 x 10 cm. 2. The Schultz's bulb is noted in neck of urinary bladder and prostatic urethra- needs repositioning. 3. Uncomplicated cholelithiasis.-new finding. 4. Left renal cortical cyst - Bosniak type I .-stable. 5. Approximately 5.7 x 5.2 x 15 cm sized large lipoma is noted along the left iliacus muscle.-stable. 6. Prostate appears enlarged in size measures about 4.5 x 5.4 x 5.2 cm. It shows internal hypodensity in air foci- Sequelae of recent operative changes likely.-new finding. Electronically signed by Pérez Hernandez 09-04-2024 07:15 AM Discharge Plan Visit Data Chief Complaint: Bleeding Stated Complaint: BLEEDING FROM CATH ED Provider: Valerio Kearns Discharge Problem: Hematuria, PAF (paroxysmal atrial fibrillation), Obstructed Schultz catheter, Atrial fibrillation, On apixaban therapy, BPH w urinary obs/LUTS Patient Disposition: Admitted As Inpatient Condition: Serious Discharge Instructions Interventions: ED Discharge Assessment Last Done: 09/04/24 08:45 Discharge Problem: Hematuria Qualifiers: Hematuria type: gross Qualified Code(s): R31.0 - Gross hematuria Obstructed Schultz catheter Qualifiers: Encounter type: initial encounter Qualified Code(s): T83.091A - Other mechanical complication of indwelling urethral catheter, initial encounter Atrial fibrillation Qualifiers: Atrial fibrillation type: paroxysmal Qualified Code(s): I48.0 - Paroxysmal atrial fibrillation
[2024-09-04] MEDS: ACETAMINOPHEN 1,000 MG/100 ML VIAL IV STA (03:48)
[2024-09-04] MEDS: SODIUM CHLORIDE 0.9% 500 ML IV ONE (03:48)
[2024-09-04 04:01] LABS: Basophils # (auto) 0.07 K/uL (0.00-0.20); Basophils % (auto) 0.6 %; Eosinophils # (auto) 0.23 K/uL (0.00-0.50); Eosinophils % (auto) 2.1 %; Hematocrit (blood only) 44.5 % (42.0-52.0); Hemoglobin 14.8 g/dl (14.0-18.0); Immature Granulocytes # (auto) 0.04 K/uL (0.01-0.20); Immature Granulocytes % (auto) 0.4 %; Lymphocytes # (auto) 2.38 K/uL (1.20-3.40); Lymphocytes % (auto) 21.5 %; Mean Corpuscular Hemoglobin 31.5 pg (25.0-34.0); Mean Corpuscular Hgb Conc 33.3 g/dL (32.0-36.0); Mean Corpuscular Volume 94.7 fL (80.0-100.0); Mean Platelet Volume 9.5 fL (9.4-12.4); Monocytes # (auto) 1.11 K/uL (0.11-0.59); Neutrophils # (auto) 7.25 K/uL (1.40-6.50); Neutrophils % (auto) 65.4 %; Platelet Count 258 K/uL (130-400); RDW Coefficient of Variation 13.2 % (11.5-14.5); RDW Standard Deviation 46.5 fL (36.4-46.3); White Blood Count 11.08 K/ul (4.8-10.8)
[2024-09-04 04:18] LABS: Albumin Globulin Ratio 1.1 (0.9-2); Albumin Level 3.7 gm/dl (3.4-5.0); BUN Creatinine Ratio 16.1 (10-20); Creatinine Clr Calc Pharmacy 51.2 ml/min; Globulin 3.4 gm/dl (2.5-4.0); Magnesium 1.8 mg/dl (1.7-2.4); Potassium 3.6 mmol/L (3.5-5.1); Total Protein 7.1 gm/dl (6.0-8.3)
[2024-09-04 04:33] LABS: Thyroid Stimulating Hormone 4.938 uIu/ml (0.300-4.500)
[2024-09-04] MEDS: MoRPHine SULFATE 4 MG/ML 1 ML CARP\\VIAL IV STA ×2 (04:33→06:23)
[2024-09-04 04:35] LABS: Prothrombin Time 10.9 Seconds (9.0-12.0)
[2024-09-04 05:07] LABS: T4 Free Thyroxine 0.95 ng/dl (0.61-1.60)
--- NOTE | 2024-09-04 05:46 | Urology Consultation ---
Date of Consultation September 04, 2024 Assessment & Plan (1) Urinary retention: I discussed with the treating emergency room physician the patient is being admitted on the hospitalist service. From a urologic perspective we recommend the following: Follow serial labs Provide analgesics Provide antiemetics Procedure: At the time of my arrival nursing staff had already exchanged the patient's existing catheter for three-way catheter. They attempted to initiate continuous bladder irrigation after his Schultz catheter has been placed as they had already flushed and irrigated the catheter for several clots. Patient's catheter flow appeared sluggish so at the bedside I manually flushed and irrigated the patient's catheter with copious amounts of sterile water. I was able to evacuate a substantial/large amount of blood clots. With these maneuvers the patient's blood return from a dark red color to a more light blood-tinged color. At the conclusion of flushing irrigating as noted above the patient's catheter was running more vigorously and the patient noted symptomatic relief of his presenting complaints Continuous bladder irrigation should be continued If the patient's catheter clots again manual flushing and irrigation can be employed and nursing staff has been instructed on this If clinically feasible would recommend holding antiplatelets and anticoagulants Additional recommendations will be forthcoming based on his clinical course as it unfolds History of Present Illness Reason for Consultation: Hematuria History of Present Illness This is an 83-year-old male who on 08/15/2024 underwent a Rezum procedure by Dr. Harrison of [facility] urology. Patient says that following his procedure he had to self cath for approximately 1 week but the patient began having hematuria so a Schultz catheter was placed. Patient went to [facility] urology yesterday for a voiding trial which he failed and a Schultz catheter was placed. Patient began having gross hematuria and his catheter clotted off and stopped draining and he had some blood draining around his urethral meatus around the Schultz catheter. Patient then presented to the emergency department as he was having severe bladder distention and suprapubic pain. The patient does note that he does take Eliquis for history of atrial fibrillation and he took his p.m. dose on 09/03/2024. Since arrival to the emergency department the patient has had labs which I reviewed. White blood cell count was elevated 11.0. His hemoglobin and hematocrit were normal. Platelet count was normal. Coagulation studies showed an INR of 1.0. Sodium and potassium on chemistry profile were normal as were his BUN and creatinine. At the time of my interview and conclusion of my visit patient was resting comfortably in bed and was in no distress. Allergies Allergy/AdvReac Type Severity Reaction Status Date / Time metoprolol AdvReac Mild Diarrhea Verified 08/15/24 09:08 Home Medications Medication Instructions Recorded Confirmed Type coenzyme Q10 100 mg capsule 100 mg PO QAM 10/17/18 08/15/24 History apixaban 5 mg tablet (Eliquis) 5 mg PO BID #60 tabs 07/01/24 08/15/24 Rx atorvastatin 80 mg tablet 80 mg PO QAM #90 tabs 07/03/24 08/15/24 Rx losartan 50 mg tablet 50 mg PO QAM #90 tabs 07/03/24 08/15/24 Rx acetaminophen 500 mg tablet 1,000 mg PO Q8 PRN Pain 07/23/24 08/15/24 History (Tylenol Extra Strength) aspirin 81 mg tablet,delayed 81 mg PO QAM 07/23/24 08/15/24 History release Patient History Medical History Arthritis BPH (benign prostatic hyperplasia) History of atrial fibrillation Hx of myocardial infarction 2009 s/p MAREK to dRCA CAD (coronary artery disease) 2009 s/p MAREK to dRCA HLD (hyperlipidemia) HTN (hypertension) Osteoarthritis Sleep apnea No device, "does not need" device since weight loss per pt, no formal retesting Surgical History S/P TURP (transurethral resection of prostate) History of right shoulder replacement History of total right hip arthroplasty H/O colonoscopy Hx of local excision of skin lesion 10/2018 Hx of cataract surgery right/left Hx of cardiac cath 2010 > stent x 1 Family History Other No family history of adverse response to anesthesia No significant family history Social History Smoking Status: Never smoker Tobacco Type: Cigarettes Second Hand Exposure: No; Do You Dip or Chew Tobacco: No; Hx Alcohol Use: Yes Alcohol type: wine Preferred Language: Lithuanian Communication Ability: Effective Visual Impairment: No Limitations Community Relations Coordinator Required: No Beliefs That Will Affect Care: None marital status: Current Living Situation: Spouse current occupational status: retired Feels Safe at Home: Yes Assistive Devices: Glasses and Hearing Aid - Bilateral Review of Systems Review of Systems: All systems reviewed & are unremarkable except as noted in HPI & below Physical Exam Constitutional: WD/WN, vitals as above Eyes: no conjunctival abnormality ENMT: Ears: no hearing impairment and no external ear abnormality Mouth: no oropharynx abnormality Neck: trachea midline Respiratory: normal respiratory effort; no respiratory distress and no labored breathing Cardiovascular: Rate/Rhythm: regular rate, regular rhythm and + tachycardic Gastrointestinal (Abdomen): Abdomen is not rigid but the patient did have pain with palpation in the suprapubic region Musculoskeletal: No calf tenderness Skin: no rashes Neurologic: moves all extremities Psychiatric: A+Ox3, euthymic affect Genitourinary: Three-way Schultz catheter is in place. See assessment and plan for further description Results & Data Vital Signs (Past 12 Hours) Vital Signs Temp Pulse Resp BP Pulse Ox O2 Del Method O2 Flow Rate 09/04/24 05:01 134 H 25 H 125/84 95 Room Air 09/04/24 04:02 146 H 26 H 140/103 H 99 09/04/24 03:58 99 Room Air 0 09/04/24 03:56 130 H 22 99 Room Air 0 09/04/24 03:19 131 H 09/04/24 03:18 157 H 24 171/99 H 96 09/04/24 02:47 36.7 C 78 18 140/100 97 Room Air PG Care Time/CCT Total # of Minutes Spent Total Time Spent with Patient: Total time spent is greater than 50% in coordination of care (as documented) at patient's floor/unit and/or counseling patient: Coding Level of Care Code 26473 INT INP/OBS CARE 3/75MIN Diagnoses Urinary retention R33.9
[2024-09-04] MEDS: OPTIRAY 320 100ml IV ONE (06:00)
--- NOTE | 2024-09-04 06:16 | History & Physical Report ---
Date of Service September 04, 2024 Assessment & Plan (1) Hematuria: (2) PAF (paroxysmal atrial fibrillation): (3) Hyperlipidemia: Plan 83-year-old male with recent REZUM procedure on 08/15/2024 presents with urinary outlet obstruction due to bladder clots requiring manual removal and three-way continuous flow irrigation. Patient is chronically anticoagulated with Eliquis for A-fib takes aspirin for distant history of a drug-eluting stent. He otherwise is fairly healthy having dyslipidemia. He during the procedure in the emergency department his A-fib was in a more rapid response subsequently admitted to telemetry unit in case the need for rate control would be required #Gross hematuria/bladder outlet obstruction seems to be subsequent to recent procedure. Patient is not anemic on initial laboratories and additional hemoglobin will be checked in the afternoon. Patient will have continuous bladder irrigation managed by urology service. Patient will have a urine culture and intravenous fluids. Preprocedure he did have a Citrobacter koseri urinary tract infection document on 07/26/2024. did have bactrim on 08/15/24 Due to the size of clot seen on CT scan patient is kept n.p.o. except sips and chips in case cystoscopy is warranted for clot removal #Atrial fibrillation/coronary artery disease. As mentioned patient is anticoagulant and aspirin will be held at this time. He is not usually on any rate controlling agents for his atrial fibrillation. For his coronary disease risk modification typically taking atorvastatin and losartan. The losartan will be continued the atorvastatin is currently being held #DVT prevention is contraindicated chemoprophylactic at this point in time SCDs will be employed History of Present Illness Primary Care Provider: Marah Helm MD 83-year-old male presents with difficulty urinating or gross hematuria. Patient had a R EZ UM procedure on 08/15/[address] Harrison. Following the procedure he had to intermittently self cath. Patient developed hematuria eventually a Schultz catheter was placed patient had this removed but then failed a voiding trial at the office and the Schultz catheter was replaced and hematuria persisted increasing continued with blood clots clotting off the catheter. Patient is chronically anticoagulated with Eliquis for atrial fibrillation and he takes an aspirin for history of drug-eluting stent 2009. In the emergency department there were large clots in his bladder on ultrasound and he had may have his clots manually removed by urology on-call. He is recommended for continuous bladder irrigation and subsequently is admitted to the hospital. Urology been consulted and managed for continuous bladder irrigation. Allergies Allergy/AdvReac Type Severity Reaction Status Date / Time metoprolol AdvReac Mild Diarrhea Verified 08/15/24 09:08 Home Medications Medication Instructions Recorded Confirmed Type coenzyme Q10 100 mg capsule 100 mg PO QAM 10/17/18 08/15/24 History apixaban 5 mg tablet (Eliquis) 5 mg PO BID #60 tabs 07/01/24 08/15/24 Rx atorvastatin 80 mg tablet 80 mg PO QAM #90 tabs 07/03/24 08/15/24 Rx losartan 50 mg tablet 50 mg PO QAM #90 tabs 07/03/24 08/15/24 Rx acetaminophen 500 mg tablet 1,000 mg PO Q8 PRN Pain 07/23/24 08/15/24 History (Tylenol Extra Strength) aspirin 81 mg tablet,delayed 81 mg PO QAM 07/23/24 08/15/24 History release Past Med/Surg History Problem List Erectile dysfunction Urinary retention 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 Hematuria Primary osteoarthritis, right shoulder Stricture of urethra Encounter for pre-operative examination Renal cyst CAD (coronary artery disease) Incomplete emptying of bladder Neurogenic bladder, flaccid PAF (paroxysmal atrial fibrillation) (Chronic) 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 (Chronic) Hypertension Benign prostatic hyperplasia Hyperlipidemia Medical History Arthritis BPH (benign prostatic hyperplasia) History of atrial fibrillation Hx of myocardial infarction 2009 s/p MAREK to dRCA CAD (coronary artery disease) 2009 s/p MAREK to dRCA HLD (hyperlipidemia) HTN (hypertension) Osteoarthritis Sleep apnea No device, "does not need" device since weight loss per pt, no formal retesting Surgical History S/P TURP (transurethral resection of prostate) History of right shoulder replacement History of total right hip arthroplasty H/O colonoscopy Hx of local excision of skin lesion 10/2018 Hx of cataract surgery right/left Hx of cardiac cath 2010 > stent x 1 Family History Other No family history of adverse response to anesthesia No significant family history Social History Smoking Status: Never smoker Tobacco Type: Cigarettes Second Hand Exposure: No; Do You Dip or Chew Tobacco: No; Hx Alcohol Use: Yes Alcohol type: wine Preferred Language: Turkmen Communication Ability: Effective Visual Impairment: No Limitations Vat Washer Required: No Beliefs That Will Affect Care: None marital status: Current Living Situation: Spouse current occupational status: retired Feels Safe at Home: Yes Assistive Devices: Glasses and Hearing Aid - Bilateral Review of Systems Review of Systems: Mild distress and fatigue no headache, no visual changes no speech or swallowing issues no chest pain, pressure or palpitations no shortness of breath, cough or wheezes no abdominal pain, nausea or vomiting, diarrhea or constipation no dysuria, hematuria or frequency no focal joint pain or swelling no back pain, CVA tenderness or radicular pain no bruising, bleeding or rashes no focal signs of weakness or numbness or altered sensation no complaints of anxiety or depression.. Physical Exam Physical Exam: The patient appeared well nourished and normally developed. Vital signs as documented. Head exam is normocephalic atraumatic Neck is without JVD, thyromegaly, or carotid bruits. Lungs are clear to auscultation, no focal loss of breath sounds Cardiac exam, Rhythm is regular.. No murmurs, rubs or gallops. Abdominal exam reveals normal bowel sounds, soft non tender, no masses Extremities are nonedematous and both pedal pulses are present Neurologic exam is alert and oriented, no focal loss of strength or sensation Skin is without bruises or rashes Psychologically is without concerns for anxiety or depression.. Results & Data Results & Data Vital Signs (Past 12 Hours) Vital Signs Temp Pulse Resp BP Pulse Ox O2 Del Method O2 Flow Rate 09/04/24 05:01 134 H 25 H 125/84 95 Room Air 09/04/24 04:02 146 H 26 H 140/103 H 99 09/04/24 03:58 99 Room Air 0 09/04/24 03:56 130 H 22 99 Room Air 0 09/04/24 03:19 131 H 09/04/24 03:18 157 H 24 171/99 H 96 06/25/25 02:47 98.1 F 78 18 140/100 97 Room Air Laboratory Results Resume reviewed CBC reviewed chemistry Discussed the case with emergency room physician Discussed the case with the on-call urology service Code Status & VTE Plan VTE Prophylaxis Plan VTE Prophylaxis will be ordered: Yes PG Care Time/CCT Total # of Minutes Spent Total Time Spent with Patient: Total time spent is greater than 50% in coordination of care (as documented) at patient's floor/unit and/or counseling patient: Coding Level of Care Code 14648 INT INP/OBS CARE 3/75MIN Diagnoses Hematuria R31.9 PAF (paroxysmal atrial fibrillation) I48.0 Hyperlipidemia, unspecified hyperlipidemia type E78.5 Hyperlipidemia type: unspecified (3) Hyperlipidemia Hyperlipidemia type: unspecified Qualified Code(s): E78.5 - Hyperlipidemia, unspecified
--- NOTE | 2024-09-04 07:15 | CT Scan Report ---
EXAM: CT abd pelvis IV con only CLINICAL HISTORY: abd pain, gross hematuria, recent rezum procedure. TECHNIQUE: Contiguous axial images were obtained from the level of the diaphragm to the pubic symphysis with intravenous contrast. Coronal and sagittal reconstructions were likewise performed and indicated to increase the sensitivity for detecting clinically relevant pathology. If IV contrast material had not been administered, the likelihood of detecting abnormalities relevant to the patient's condition would have been substantially decreased. CT scan was performed according to ALARA (as low as reasonable achievable). COMPARISON: 11/09/2020 11:04:18 INDEPENDENT MARKETING CONSULTANT FINDINGS: The visualized lung bases are clear. The liver is normal in size and attenuation. No focal liver lesions are seen. There is no intra or extrahepatic biliary ductal dilatation. Hepatic vasculature is patent. The gallbladder is distended and shows intraluminal density / calculus without cholecystitis.. The spleen, pancreas, and adrenal glands are unremarkable. The kidneys are normal in size and attenuation. There is no hydronephrosis or perinephric fat stranding. No renal calculi or renal masses are identified. Few cortical cysts noted involving left kidney - largest measures about 5.7 cm. The ureters are normal in caliber and no ureteral calculi are seen. The bladder is grossly distended and shows a large intraluminal hyperdensity / clot of size 13 x 10 x 10 cm. The Schultz's bulb is noted in neck of urinary bladder and prostatic urethra- needs repositioning. No focal or diffuse bowel wall thickening or evidence of bowel obstruction is identified. No inflamed appendix is visualized in the right lower quadrant. Abdominal and pelvic vasculature is patent. No adenopathy or fluid collections are seen. No aggressive appearing osseous lesions are identified. Approximately 5.7 x 5.2 x 15 cm sized large lipoma is noted along the left iliacus muscle. Right sided fat containing inguinal hernia.-stable. Prostate appears enlarged in size measures about 4.5 x 5.4 x 5.2 cm. It shows internal hypodensity in air foci- Sequelae of recent operative changes likely. IMPRESSION: 1. The bladder is grossly distended and shows a large intraluminal hyperdensity / clot of size 13 x 10 x 10 cm. 2. The Schultz's bulb is noted in neck of urinary bladder and prostatic urethra- needs repositioning. 3. Uncomplicated cholelithiasis.-new finding. 4. Left renal cortical cyst - Bosniak type I .-stable. 5. Approximately 5.7 x 5.2 x 15 cm sized large lipoma is noted along the left iliacus muscle.-stable. 6. Prostate appears enlarged in size measures about 4.5 x 5.4 x 5.2 cm. It shows internal hypodensity in air foci- Sequelae of recent operative changes likely.-new finding. Electronically signed by Pérez Hernandez 09-04-2024 07:15 AM
--- NOTE | 2024-09-04 08:36 | Urology Progress Note ---
Date of Service September 04, 2024 Assessment & Plan (1) Urinary retention: (2) Obstructed Schultz catheter: (3) Hematuria: Plan 83yo male who is s/p Rezum procedure on 08/15/24 who presented to the ED with clot obstruction requiring catheter placement and manual irrigation. Patient is chronically anticoagulated with Eliquis for A-fib. CT abd pelvis this morning shows a grossly distended bladder with large clot burden. Schultz currently draining light pink urine with CBI wide open. Discussed his CT findings today. Discussed OR procedure for clot evacuation and fulguration. Alternatively discussed option to again attempt manual irrigation/clot removal at bedside. He prefers to proceed to OR for cystoscopy, clot evacuation, possible fulguration. Risks/benefits to be reviewed with patient by Dr. Kirkland. Keep NPO. Will cover with Ancef preoperatively. Maintain Schultz catheter and continue to monitor closely. Can hand irrigate as needed for clots, retention, suprapubic pain. Urology will follow. Supervising Physician Co-Signing Physician Notes Given that he required irrigation and CT afterwards showed a considerable amount of clot remaining in the bladder, we will plan take him to the OR for cystoscopy, clot evacuation and fulguration. Consent obtained. Subjective Pt seen at bedside in the ED. Awake and resting in bed on arrival. No acute distress. Schultz draining pink urine with CBI running wide open. Denies significant pain at present. Has been NPO. Review of Systems Constitutional: as per Subjective / HPI Genitourinary: + as per Subjective / HPI Physical Exam Constitutional: no acute distress Respiratory: no respiratory distress and no labored breathing Neurologic: awake Psychiatric: A+Ox3, euthymic affect Results & Data Vital Signs (Past 12 Hours) Vital Signs Temp Pulse Resp BP Pulse Ox O2 Del Method O2 Flow Rate 09/04/24 07:42 119 H 18 168/122 H 98 Room Air 09/04/24 07:00 112 H 14 169/107 H 98 Room Air 09/04/24 06:36 118 H 09/04/24 06:31 124 H 22 157/97 H 96 09/04/24 06:10 142 H 15 135/88 98 09/04/24 05:30 153 H 24 125/100 98 09/04/24 05:01 134 H 25 H 125/84 95 Room Air 09/04/24 04:02 146 H 26 H 140/103 H 99 09/04/24 03:58 99 Room Air 0 09/04/24 03:56 130 H 22 99 Room Air 0 09/04/24 03:19 131 H 09/04/24 03:18 157 H 24 171/99 H 96 09/04/24 02:47 36.7 C 78 18 140/100 97 Room Air PG Care Time/CCT Total # of Minutes Spent Total Time Spent with Patient: Total time spent is greater than 50% in coordination of care (as documented) at patient's floor/unit and/or counseling patient: Coding Level of Care Code None Diagnoses Urinary retention R33.9 Obstructed Schultz catheter T83.091A Hematuria R31.9
[2024-09-04] MEDS ORDERED: ONDANSETRON INJ 2 MG/ML 2 ML VIAL IV PRN ×2 (09:13→11:12)
[2024-09-04] MEDS ORDERED: METOPROLOL TARTRATE 1 MG/ML VIAL IV PRN (09:13)
[2024-09-04] MEDS ORDERED: ACETAMINOPHEN 500 MG TAB PO PRN (09:13)
[2024-09-04] MEDS: LOSARTAN POTASSIUM 50 MG TAB PO SCH (09:31)
[2024-09-04] MEDS: SODIUM CHLORIDE 0.9% 1,000 ML IV SCH (09:31)
--- NOTE | 2024-09-04 09:42 | Anesthesiology Consultation ---
Date of Service September 04, 2024 Assessment & Plan (1) Encounter for pre-operative examination: Chart Review Chart Review: Acceptable Risk for Surgery History Surgery Operation Date: 09/04/24 09:30 Proposed Procedures p Cystoscopy, Clot Evacuation, Possible Fulguration - Jaciel Kirkland MD Height/Weight Height: 5 ft 8 in Weight: 85 kg Allergies Allergy/AdvReac Type Severity Reaction Status Date / Time metoprolol AdvReac Mild Diarrhea Verified 09/04/24 09:21 Medications Home Medications Medication Instructions Recorded Confirmed Last Taken coenzyme Q10 100 mg capsule 100 mg PO QAM 10/17/18 09/04/24 08/11/24 apixaban 5 mg tablet (Eliquis) 5 mg PO BID #60 tabs 07/01/24 09/04/24 08/11/24 atorvastatin 80 mg tablet 80 mg PO QAM #90 tabs 07/03/24 09/04/24 08/15/24 06:00 losartan 50 mg tablet 50 mg PO QAM #90 tabs 07/03/24 09/04/24 08/15/24 06:00 acetaminophen 500 mg tablet 1,000 mg PO Q8 PRN Pain 07/23/24 09/04/24 Unknown (Tylenol Extra Strength) aspirin 81 mg tablet,delayed 81 mg PO QAM 07/23/24 09/04/24 08/11/24 release Active Medications Generic Name Dose Route Start Last Admin Trade Name Freq PRN Reason Stop Dose Admin Sodium Chloride 1,000 mls @ 80 mls/hr 09/04/24 09:30 09/04/24 09:31 Nss IV 09/04/24 21:59 80 mls/hr .[id number] AIME Administration Losartan Potassium 50 mg 09/04/24 09:13 09/04/24 09:32 Losartan Potassium 50 Mg Tab PO 10/04/24 09:12 50 mg QAM AIME Administration Past Medical History Medical History (Updated 09/04/24 @ 09:41 by Juan Carlos Singh MD) Hematuria PAF (paroxysmal atrial fibrillation) Arthritis BPH (benign prostatic hyperplasia) History of atrial fibrillation Hx of myocardial infarction 2009 s/p MAREK to dRCA CAD (coronary artery disease) 2009 s/p MAREK to dRCA HLD (hyperlipidemia) HTN (hypertension) Osteoarthritis Sleep apnea No device, "does not need" device since weight loss per pt, no formal retesting Past Family History Family History Other No family history of adverse response to anesthesia No significant family history Past Surgical History Surgical History S/P TURP (transurethral resection of prostate) History of right shoulder replacement History of total right hip arthroplasty H/O colonoscopy Hx of local excision of skin lesion 10/2018 Hx of cataract surgery right/left Hx of cardiac cath 2010 > stent x 1 Social History Smoking Status: Never smoker tobacco type: cigarettes Do You Dip or Chew Tobacco: No Hx Alcohol Use: Yes Alcohol type: wine alcohol intake frequency: 0-2 drinks per day Hx Substance Use: No substance use type: does not use Physical Exam Vital Signs Last Vital Signs Temp 36.7 C 09/04/24 09:14 Pulse 80 09/04/24 09:14 Resp 16 09/04/24 09:14 BP 159/124 H 09/04/24 09:14 Pulse Ox 95 09/04/24 09:14 O2 Del Method Room Air 09/04/24 09:14 O2 Flow Rate 0 09/04/24 03:58 Testing Laboratory Results 09/04/24 03:35 09/04/24 03:35 PT 10.9 Seconds (9.0-12.0) 09/04/24 03:35 INR 1.0 (0.9-1.1) 09/04/24 03:35 Electrocardiogram Date: 09/04/24 Findings: + AFIB @ (124) Echocardiogram Date: 10/18/18 LV Function: normal Valvular Disease: + no significant valvular disease
[2024-09-04] MEDS: LACTATED RINGER'S 1,000 ML IV SCH (10:15)
[2024-09-04] MEDS ORDERED: LIDOCAINE 2% 2 ML VIAL/AMP(20MG/ML) INFIL ONE (10:41)
[2024-09-04] MEDS ORDERED: PROPOFOL IV EMULSION 10 MG/ML 20 ML VIAL IV ONE (10:41)
[2024-09-04] MEDS ORDERED: ONDANSETRON INJ 2 MG/ML 2 ML VIAL ONE (10:41)
[2024-09-04] MEDS ORDERED: fentaNYL citrate PF 100 MCG/2 ML VIAL ONE (10:42)
[2024-09-04] MEDS ORDERED: fentaNYL citrate PF 100 MCG/2 ML VIAL IV PRN (11:12)
[2024-09-04] MEDS ORDERED: ATROPINE SULFATE 0.1 MG/ML 10ML SYR IV PRN (11:12)
[2024-09-04] MEDS ORDERED: LABETALOL HCL IV 5 MG/ML 20ML IV PRN (11:12)
[2024-09-04] MEDS: ceFAZolin 2000MG 2,000 MG/15 ML SYR IV ONE (11:41)
[2024-09-04] MEDS ORDERED: ESMOLOL HCL INJ 10 MG/ML 10ML VIAL IV ONE (11:46)
[2024-09-04] MEDS ORDERED: PHENYLEPHRINE 100MCG/ML 5ML SYR ONE (11:54)
[2024-09-04] MEDS ORDERED: DEXAMETHASONE SOD INJ 4 MG/ML VIAL ONE (12:02)
--- NOTE | 2024-09-04 12:22 | Operative Report ---
PG Post Operative Report Pre & Post Diagnosis Hematuria Operation Date: 09/04/24 09:30 <No data on this case meets the specified criteria> Hematuria I identified the patient and participated in the time-out.: Yes Procedure Cystoscopy, clot evacuation and fulguration Operation Date: 09/04/24 09:30 <No data on this case meets the specified criteria> Surgeon Jaciel Kirkland MD Splicing Machine Operator None Estimated Blood Loss 0 Findings See Below Roughly 300 cc of old blood in bladder. No active bleeding. Prostatic urethral channel consistent with previous rezum with necrotic tissue, which is expected. Channel open. Specimens None Drains 22 Qatari three-way with 10 cc in balloon, capped Anesthesia Type General Complications none Indications 83-year-old male with a recent history of a rezum who is on anticoagulation who came in with clot retention. CT scan showed a considerable amount of clot in bladder after irrigation so opted to take him to the OR. Description of Procedure After informed consent was obtained, the patient was transported to the operative suite. General anesthesia was induced. They were placed in dorsal lithotomy position and prepped and draped in sterile fashion. They received preoperative Ancef. An appropriate surgical timeout was performed. Resectoscope was inserted per urethra and the bladder. There is a scant amount of blood clot and this was aspirated using a Conrado syringe. Roughly 300 cc of clot was removed. Tran cystoscopy was then performed which did not show any active bleeding. Prostatic channel was consistent with recent rezum with some necrotic tissue. I did vaporized some of this tissue and fulgurate areas that look like they may have previously blood. Urine was clear. Scope was removed. 22 Qatari three-way catheter was inserted per urethra in the bladder with return of clear urine. Balloon was inflated with 10 cc of sterile water and CBI port was capped. This concluded the case. All counts correct at the end of the case. I was present scrubbed and actively participated for the entirety of the procedure. I attest to the content of the Intraoperative Record and any orders documented therein. Any exceptions are noted below.
--- NOTE | 2024-09-04 13:36 | Anesthesiology Progress Note ---
Date of Service September 04, 2024 Anesthesia Post Procedure Vital Signs Vital Signs: Temp Pulse Pulse Pulse Resp BP BP 09/04/24 13:31 36.7 C 84 16 141/95 H 09/04/24 12:55 36.5 C 90 16 147/102 H 09/04/24 12:45 96 H 20 140/98 09/04/24 12:35 96 H 12 149/98 H 09/04/24 12:28 36.1 C L 91 H 12 157/109 H 09/04/24 10:05 153/102 H 09/04/24 09:51 36.8 C 91 H 16 151/110 H 09/04/24 09:14 36.7 C 80 16 159/124 H 09/04/24 08:45 09/04/24 08:30 108 H 14 149/119 H 09/04/24 07:42 119 H 18 168/122 H 09/04/24 07:00 112 H 14 169/107 H 09/04/24 06:36 118 H 09/04/24 06:31 124 H 22 157/97 H 09/04/24 06:10 142 H 15 135/88 09/04/24 05:30 153 H 24 125/100 09/04/24 05:01 134 H 25 H 125/84 09/04/24 04:02 146 H 26 H 140/103 H 09/04/24 03:58 09/04/24 03:56 130 H 22 09/04/24 03:19 131 H 09/04/24 03:18 157 H 24 171/99 H 09/04/24 02:47 36.7 C 78 18 140/100 Pulse Ox O2 Del Method O2 Flow Rate 09/04/24 13:31 97 Room Air 09/04/24 12:55 96 Room Air 09/04/24 12:45 98 Room Air 09/04/24 12:35 100 Oxymask 6 09/04/24 12:28 100 Oxymask 13 09/04/24 10:05 09/04/24 09:51 96 Room Air 09/04/24 09:14 95 Room Air 09/04/24 08:45 Room Air 09/04/24 08:30 99 Room Air 09/04/24 07:42 98 Room Air 09/04/24 07:00 98 Room Air 09/04/24 06:36 09/04/24 06:31 96 09/04/24 06:10 98 09/04/24 05:30 98 09/04/24 05:01 95 Room Air 09/04/24 04:02 99 09/04/24 03:58 99 Room Air 0 09/04/24 03:56 99 Room Air 0 09/04/24 03:19 09/04/24 03:18 96 09/04/24 02:47 97 Room Air Pain Intensity Penis: Pain Intensity: 7 Transfer of Care Handoff Completed per policy Notes Mental Status: alert / awake / arousable Patient Amnestic to Procedure: Yes Nausea / Vomiting: adequately controlled Pain: adequately controlled Airway Patency, RR, SpO2: stable & adequate BP & HR: stable & adequate Hydration State: stable & adequate Anesthetic Complications: no major complications apparent
[2024-09-05 02:45] VITALS: RESP 18
[2024-09-05 08:09] LABS: Hematocrit (blood only) 35.6 % (42.0-52.0); Hemoglobin 11.7 g/dl (14.0-18.0); Mean Corpuscular Hemoglobin 31.7 pg (25.0-34.0); Mean Corpuscular Hgb Conc 32.9 g/dL (32.0-36.0); Mean Corpuscular Volume 96.5 fL (80.0-100.0); Mean Platelet Volume 9.4 fL (9.4-12.4); Platelet Count 190 K/uL (130-400); RDW Coefficient of Variation 13.2 % (11.5-14.5); RDW Standard Deviation 47.4 fL (36.4-46.3); Red Blood Count 3.69 M/uL (4.70-6.10); White Blood Count 11.35 K/ul (4.8-10.8)
[2024-09-05 08:33] LABS: Calcium 8.3 mg/dl (8.6-10.3); Creatinine Clr Calc Pharmacy 66.3 ml/min; Potassium 4.8 mmol/L (3.5-5.1)
[2024-09-05] MEDS: ATORVASTATIN 40 MG TAB PO SCH (08:41)
--- NOTE | 2024-09-05 10:10 | Urology Progress Note ---
Date of Service September 05, 2024 Assessment & Plan (1) BPH w urinary obs/LUTS: (2) On apixaban therapy: (3) Hematuria: Plan 83-year-old male s/p Karthikm on 08/15/2024. He presented to the ER on 09/04/24 with clot obstruction requiring catheter placement and manual irrigation. Patient is chronically anticoagulated with Eliquis for A-fib. He underwent clot evacuation fulguration on 09/04/2024 due to significant clots noted on CT. Per OR notes roughly 300 cc of clot was evacuated during procedure. Currently catheter draining clear yellow, no hematuria noted May hand irrigate if needed for clots, suprapubic pain May resume Eliquis today Since patient previously was doing CIC, would recommend we keep catheter upon discharge with a trial of void outpatient in 7 to 10 days-urology will arrange follow up Other medical management and care per primary team No other further intervention per urology, patient okay for discharge from our standpoint Please recontact our service for any questions or concerns Admission and Anticipated Discharge Date Admission Date: September 04, 2024 Subjective Patient awake upon arrival Resting comfortably in bed No acute distress Denies bladder discomfort Schultz draining clear yellow-no sediment or hematuria noted Review of Systems Constitutional: as per Subjective / HPI Genitourinary: + as per Subjective / HPI Physical Exam Constitutional: well developed and well nourished; no acute distress Respiratory: normal respiratory effort and able to speak in complete sentences Musculoskeletal: Extremities: extremities normal to inspection Psychiatric: Orientation: alert and oriented x 3 Genitourinary: Schultz draining clear yellow Results & Data Vital Signs (Past 12 Hours) Vital Signs Temp Pulse Pulse Resp BP Pulse Ox Pulse Ox 09/05/24 09:44 87 09/05/24 09:13 97 09/05/24 07:54 36.8 C 84 18 129/80 97 09/05/24 02:37 36.3 C L 85 18 138/85 96 09/04/24 23:28 36.7 C 94 H 14 135/82 96 O2 Del Method O2 Del Method 09/05/24 09:44 09/05/24 09:13 Room Air 09/05/24 07:54 Room Air 09/05/24 02:37 Room Air 09/04/24 23:28 Room Air PG Care Time/CCT Total # of Minutes Spent Total Time Spent with Patient: Total time spent is greater than 50% in coordination of care (as documented) at patient's floor/unit and/or counseling patient: Coding Level of Care Code 54013 SUB INP/OBS CARE 2/35MIN Diagnoses BPH w urinary obs/LUTS N40.1; N13.8 On apixaban therapy Z79.01 Hematuria R31.0 Hematuria type: gross (3) Hematuria Hematuria type: gross Qualified Code(s): R31.0 - Gross hematuria
[2024-09-05 10:56] VITALS: BP 133/89; TEMP 98.4; O2SAT 96
--- NOTE | 2024-09-05 14:05 | Communication Note ---
*Urinary outlet obstruction d/t bladder clots, not a complication of care Pt S/P REZUM procedure with urinary outlet obstruction d/t bladder clots documented with "seems to be subsequent to recent procedure". Risk Factor(s): Hematuria, anticoagulant use Treatment: Urology consult, clot removal, cystscopy, bladder irrigation
--- NOTE | 2024-09-05 14:11 | Discharge Summary ---
Discharge Summary Date of Service September 05, 2024 Principal Dx & Hospital Course #1 = Principal Diagnosis (1) Hematuria: (2) PAF (paroxysmal atrial fibrillation): (3) Hyperlipidemia: Plan 83-year-old male with recent REZUM procedure on 08/15/2024 presents with urinary outlet obstruction due to bladder clots requiring manual removal and three-way continuous flow irrigation. Patient is chronically anticoagulated with Eliquis for A-fib takes aspirin for distant history of a drug-eluting stent. He otherwise is fairly healthy having dyslipidemia. He during the procedure in the emergency department his A-fib was in a more rapid response subsequently admitted to telemetry unit in case the need for rate control would be required *Urinary outlet obstruction d/t bladder clots, not a complication of care #Gross hematuria/bladder outlet obstruction seems to be subsequent to recent procedure. Patient required continuous bladder irrigation managed by urology service. Appreciate input from Urology He underwent clot evacuation fulguration on 09/04/2024 due to significant clots noted on CT. Per OR notes roughly 300 cc of clot was evacuated during procedure. Currently catheter draining clear yellow, no hematuria noted Since patient previously was doing CIC, would recommend we keep catheter upon discharge with a trial of void outpatient in 7 to 10 days-urology will arrange follow up. WIll resume eliquis/aspirin on the weekend. #Atrial fibrillation/coronary artery disease. As mentioned patient is anticoagulant and aspirin will be held at this time. He is not usually on any rate controlling agents for his atrial fibrillation. For his coronary disease risk modification typically taking atorvastatin and losartan. The losartan and atorvastatin will be continued = Admission HPI Per Admitting Provider 83-year-old male presents with difficulty urinating or gross hematuria. Patient had a R EZ UM procedure on 08/15/[address] Harrison. Following the procedure he had to intermittently self cath. Patient developed hematuria eventually a Schultz catheter was placed patient had this removed but then failed a voiding trial at the office and the Schultz catheter was replaced and hematuria persisted increasing continued with blood clots clotting off the catheter. Patient is chronically anticoagulated with Eliquis for atrial fibrillation and he takes an aspirin for history of drug-eluting stent 2009. In the emergency department there were large clots in his bladder on ultrasound and he had may have his clots manually removed by urology on-call. He is recommended for continuous bladder irrigation and subsequently is admitted to the hospital. Urology been consulted and managed for continuous bladder irrigation. Discharge Exam Constitutional WD/WN, vitals as above Neck trachea midline, no thyromegaly Respiratory normal respiratory effort, lungs clear to auscultation Cardiovascular RRR, no murmur, no edema Discharge Plan Discharge Items Patient Disposition: Home - Self-Care Reason For Visit: GROSS HEMATURIA, AFIB Discharge Diagnosis: gross hematuria Condition on Discharge: Serious Activity: Resume your previous activity Non-emergency contact: Primary Care Provider Call non-emergency contact if: you have any medication questions Follow-up/Referrals: Daria Fu CRNP [Nurse Practitioner] - 09/09/24 Marah Helm MD [Primary Care Provider] - 09/16/24 3:00 pm (Hospital follow up appointment on September 16 at 3 pm with an arrival time of 2:45 pm. This appointment is at [address] [place] [address].) Diet: Heart Healthy Addtl Attending Provider Instructions: May resume Eliquis and aspirin Monday keep catheter upon discharge with a trial of void outpatient in 7 to 10 days with urology Pending Studies at Discharge: No Stand-Alone Forms: My [facility] [email or web address], Smoking Cessation Medications and DC Order Prescriptions: Continued atorvastatin 80 mg tablet 80 mg PO QAM Qty: 90 3RF losartan 50 mg tablet 50 mg PO QAM Qty: 90 3RF coenzyme Q10 100 mg Capsule 100 mg PO QAM Rx Instructions: Unable to verify OTC meds at this date/time. acetaminophen [Tylenol Extra Strength] 500 mg tablet 1,000 mg PO Q8 PRN (Reason: Pain) Rx Instructions: Unable to verify OTC meds at this date/time. aspirin 81 mg tablet,delayed release (DR/EC) 81 mg PO QAM Qty: 30 0RF Rx Instructions: resume on Monday Eliquis 5 mg tablet 5 mg PO BID Qty: 60 11RF Discharge Orders: Discharge Order (Routine); Ordered 09/05/24 Ordered By: Jeremy Robb Admission Data Admit Date/Time: 09/04/24 06:07 Attending Provider: Jeremy Robb Admit Provider: Tom Chadwick Primary Care Provider: Marah Helm Other Providers: Joel Leiva; Jaciel Kirkland; Freddy Farmer Other Interventions: Discharge Summary Assessment (RN) Last Done: 09/05/24 14:16 Hospital Stay Data Consultations 09/04/24 06:17 ED Decision to Admit Stat 09/04/24 09:13 Consult Urology Routine Procedures Performed Operation Date: 09/04/24 09:30 Actual Procedures p Cystoscopy, Clot Evacuation, Fulguration - Jaciel Kirkland MD Diagnostic Imagining Performed 09/04/24 04:14 CT abd pelvis IV con only Stat Pending Results Patient Have Any Pending Studies at Discharge: No Discharge Instructions Given to Patient (Per Discharging Provider) May resume Eliquis and aspirin Monday keep catheter upon discharge with a trial of void outpatient in 7 to 10 days with urology Total Time Total Time Spent Total Time Spent (In Minutes): 32 Coding Level of Care Code 46476 INP/OBS DISCH >30 MIN Diagnoses Hematuria R31.9 PAF (paroxysmal atrial fibrillation) I48.0 Hyperlipidemia, unspecified hyperlipidemia type E78.5 Hyperlipidemia type: unspecified
[2024-09-05 14:19] VITALS: PULSE 93
--- NOTE | 2024-09-05 14:34 | Electrocardiogram Report ---
Test Reason : Blood Pressure : */* mmHG Vent. Rate : 124 BPM Atrial Rate : * BPM P-R Int : * ms QRS Dur : 78 ms QT Int : 342 ms P-R-T Axes : * 45 49 degrees QTcB Int : 491 ms Atrial fibrillation with rapid ventricular response Nonspecific ST abnormality Abnormal ECG When compared with ECG of 26-Jul-2024 11:45, No significant change was found HR has increased Confirmed by Deshawn Liu ([id number]) on 09/05/2024 2:33:46 PM Referred By: REFERRED SELF Confirmed By: Deshawn Liu
== END 2024-09-05 15:51 | disposition home or self-care (01) | DRG 664 ==
LOC: SUATTDRO → ED 02:41 → SUATTDRO 06:07 → 2S 06:07